=== PATIENT | female | born 1980 | race Caucasian/White ===

== ENCOUNTER 2020-08-09 09:29 | Outpatient (REF) | payer OTHER, SELFPAY ==
[2020-08-09 15:56] LABS: CT PCR NOT DETECTED (Not Detect.); NG PCR NOT DETECTED (Not Detect.)
[2020-08-10 09:28] LABS: BV Int Neg Control Negative (Negative); BV Int Pos Control Positive (Positive)
[2020-08-11 18:36] LABS: HPV mRNA E6/E7 rflx Not Detected (Not Detected)
== END 2020-08-09 09:30 | disposition home or self-care (01) ==
LOC: HO.LAB 09:29
PROVIDERS: Visit Provider Obstetrics & Gynecology
DX: Z01.419 Encounter for gynecological examination (general) (routine) without abnormal findings (principal); Z11.3 Encounter for screening for infections with a predominantly sexual mode of transmission
CPT/HCPCS: 87480; 87491; 87510; 87591; 87624; 87625; 87660; 88142

== ENCOUNTER 2020-10-02 11:06 | Outpatient (REF) | payer OTHER, SELFPAY ==
--- NOTE | 2020-10-02 11:12 | MM_ITS ---
EXAMINATION: MM SCREENING DIGITAL BREAST TOMOSYNTHESIS, BILATERAL CLINICAL INFORMATION: Screening. Asymptomatic. Prior history bilateral breast surgeries. The lifetime risk of breast cancer based on the Tyrer-Cuzick Model is 13%. COMPARISON: Outside mammography: 06/29/2014, 05/12/2013 ([facility]). TECHNIQUE: Digital breast tomosynthesis is performed in both the craniocaudal and mediolateral oblique views along with computer-aided detection (CAD). Synthesized 2D images are generated from the tomosynthesis. Additional exaggerated right CC view and left MLO view are provided. FINDINGS: There are scattered areas of fibroglandular density (ACR BI-RADS breast composition Category b). There are no significant masses, abnormal calcifications, or other abnormalities. There is an intramammary node posterior upper outer right breast and posterior outer left breast similar to outside study. There are a few small calcifications lower left breast on MLO view again seen. The skin contours are smooth. No significant changes. MM/MM tomosynthesis screening BI IMPRESSION: No significant changes from prior outside exams. ASSESSMENT: BI-RADS 2: Benign RECOMMENDATION: Routine annual mammography screening. This patient's information was entered into a reminder system with a target due date for their next mammogram.
== END 2020-10-02 11:07 | disposition home or self-care (01) ==
LOC: HO.MAMMO 11:06
PROVIDERS: Visit Provider Obstetrics & Gynecology
DX: Z12.31 Encounter for screening mammogram for malignant neoplasm of breast (principal)
CPT/HCPCS: 77063; 77067

== ENCOUNTER 2021-04-20 16:06 | Emergency (ER) | payer OTHER, SELFPAY ==
[2021-04-20 16:51] VITALS: BP 109/56; PULSE 94; RESP 16; TEMP 36.7; O2SAT 99; BMI 38.9
--- NOTE | 2021-04-20 16:51 | ED_ITS ---
HPI - Back Pain/Injury General Chief Complaint: Back Pain/Injury Stated Complaint: Back pain Time Seen by Provider: 04/20/21 16:51 Source: patient Mode of arrival: ambulatory Limitations: no limitations History of Present Illness HPI Narrative: 40 y/o female with history of low back pain presents to the ER with acute on chronic low back pain for the last 3 days after she was doing heavy lifting at work when she was at work. 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 She also cares for her mother who has had 5 strokes. She twisted wrong a few days ago and has worsening right sided lower back pain. It is worse with movement and twisting. No numbness, weakness, or tingling. No urinary symptoms. MD elicited complaint: back pain and back injury Pertinent past history: prior back pain Onset (ago): day(s) (3) Related Data Previous Rx's Medication Instructions Recorded metronidazole 500 mg tablet 500 mg PO BID 7 Days #14 tab 08/10/20 cyclobenzaprine 10 mg PO TID PRN #15 tab 04/20/21 ibuprofen 800 mg PO Q8H PRN #12 tab 04/20/21 lidocaine [Lidoderm] 1 patch TOPICAL DAILY #15 ea 04/20/21 Allergies Allergy/AdvReac Type Severity Reaction Status Date / Time ketorolac [From TORADOL] Allergy Severe HOTNESS Verified 08/09/20 09:33 tramadol Allergy Intermediate Rash Verified 08/09/20 09:33 Review of Systems Review of Systems: Constitutional: No Fever, No Chills Gastrointestinal: No Nausea, No Vomiting, No Diarrhea, No abdominal Pain Genitourinary: No Dysuria, No Urinary Frequency, No Hematuria Musculoskeletal: + joint pain, +Myalgias Skin: No Skin Lesions, No rash Neuro: No Weakness, No Numbness Psych: No Anxiety/Panic, No Depression Heme/Lymph: No Bruising, No Lymphadenopathy PMFSH Past Medical History Attestation statement: The following information was validated with the patient. Medical History Hx of bipolar disorder Surgical History History of cone biopsy of cervix Hx of tubal ligation Social History Social History (Updated 08/09/20 @ 09:35 by CHHAYA Littlejohn Alcohol intake: never Advance Directives: No Advance Directives Information Provided: No Sexual orientation: Straight/Heterosexual Gender identity: female Physical Exam Vital Signs: Vital Signs: Last Vital Signs Temp 98.1 F 04/20/21 16:51 Pulse 94 04/20/21 16:51 Resp 16 04/20/21 16:51 BP 109/56 L 04/20/21 16:51 Pulse Ox 99 04/20/21 16:51 Body Mass Index 38.9 Appearance: Alert. Oriented X3. No acute distress. HEENT: normal inspection CVS: Normal heart rate and rhythm. Pulses normal. Respiratory: No respiratory distress. Speaks in complete sentences Skin: Skin warm and dry. Normal skin color. Normal skin turgor. No rashes. Back: right mid-lower lumbar soft tissue tenderness and spasm. no spinal tenderness. limited flexion of the spine due to discomfort. Extremities: atraumatic, no LE edema. normal DTR's Neuro: Oriented X 3. No motor deficit. No sensory deficit. Ambulates with steady gait Course Course Course Narrative: 40 y/o female presenting with acute on chronic LBP after heavy lifting and twisting. Clinical presentation and exam are consistent with lumbar strain. No red flag symptoms of LBP. Will start NSAID, muscle relaxer, and lidoderm. Given a list for PCP's as she does not have one and this is an ongoing issues. Stable for d/c home. Patient agrees with plan. Discharge Plan Discharge Clinical Impression: Low back pain Qualifiers: Chronicity: chronic Back pain laterality: right Sciatica presence: without sciatica Qualified Code(s): M54.5 - Low back pain Patient Disposition: Home, Self-Care Instructions: Low Back Strain (ED), Lower Back Exercises (ED) Additional Instructions: No bending, lifting or twisting. Use ice several times per day for 20 minutes at a time for the next 48 hours and then change to heat. Take medications as prescribed to help with pain and discomfort. Follow up with your Primary Care Doctor this week. If your pain worsens, if you develop new numbness, tingling, weakness, loss of function or incontinence call 911 or come back to the ER right away for evaluation. Prescriptions: New cyclobenzaprine 10 mg tablet 10 mg PO TID PRN (Reason: muscle spasm) Qty: 15 RF: 0 ibuprofen 800 mg tablet 800 mg PO Q8H PRN (Reason: pain) Qty: 12 RF: 0 lidocaine [Lidoderm] 5 % adhesive patch,medicated 1 patch topical DAILY Qty: 15 RF: 0 No Action metronidazole [Flagyl] 500 mg tablet 500 mg PO BID 7 Days Qty: 14 RF: 0 Stand Alone Forms: Work/School Release
== END 2021-04-20 17:06 | disposition home or self-care (01) ==
LOC: HO.ED 17:01
PROVIDERS: Emergency Provider Emergency Medicine
DX: M54.5 Low back pain (principal)
CPT/HCPCS: 99283

== ENCOUNTER 2021-05-04 23:48 | Emergency (ER) | payer OTHER, SELFPAY ==
[2021-05-04 23:58] VITALS: BP 110/57; PULSE 93; RESP 16; TEMP 36.7; O2SAT 95; BMI 38.7
--- NOTE | 2021-05-05 00:07 | ED_ITS ---
HPI - Neck Pain/Injury General Chief Complaint: Neck Pain/Injury Stated Complaint: back pain/neck pain Time Seen by Provider: 05/05/21 00:06 Source: patient Mode of arrival: ambulatory Limitations: no limitations History of Present Illness HPI Narrative: Patient is a 40-year-old female with multiple complaints. First, she states she hurt her right side of her low back at work 3 days ago, she took ibuprofen 600 mg twice with no relief. 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 She denies any loss of control of her bladder or bowels. Second, she states she was sleeping when she was awoken by pain in her right neck, shoulder radiating down to her arm. She denies any trauma, new pillows or mattress or sleeping in an awkward position. She describes the pain as sharp, she has reduced range of motion due to the pain. She denies loss of strength or fevers. Related Data Previous Rx's Medication Instructions Recorded metronidazole 500 mg tablet 500 mg PO BID 7 Days #14 tab 08/10/20 (Flagyl) cyclobenzaprine 10 mg tablet 10 mg PO TID PRN #15 tab 04/20/21 ibuprofen 800 mg tablet 800 mg PO Q8H PRN #12 tab 04/20/21 lidocaine 5 % topical patch 1 patch TOPICAL DAILY #15 ea 04/20/21 (Lidoderm) oxycodone 5 mg tablet 5 mg PO Q6H PRN #20 tab 05/05/21 prednisone 20 mg tablet 40 mg PO DAILY 4 Days #8 tab 05/05/21 Allergies Allergy/AdvReac Type Severity Reaction Status Date / Time ketorolac [From TORADOL] Allergy Severe HOTNESS Verified 05/04/21 23:58 Review of Systems Review of Systems: Yes all other systems are reviewed and are negative [facility] Past Medical History Medical History Hx of bipolar disorder Surgical History History of cone biopsy of cervix Hx of tubal ligation Social History Social History Alcohol intake: never Advance Directives: No Advance Directives Information Provided: Yes Patient : No Sexual orientation: Straight/Heterosexual Gender identity: female Physical Exam Vital Signs: Vital Signs: Last Vital Signs Temp 98.0 F 05/04/21 23:58 Pulse 93 05/04/21 23:58 Resp 16 05/04/21 23:58 BP 110/57 L 05/04/21 23:58 Pulse Ox 95 05/04/21 23:58 Body Mass Index 38.7 Const: General: cooperative, healthy appearing and comfortable (clearly in pain) Nutritional Appearance: obese Limitations: no limitations HENMT: Head: Yes normal to inspection, Yes No palpable skull fracture present, Yes normocephalic and Yes atraumatic General nose exam: Normal external nose present Face and sinus: Yes normal facial exam Eyes: General: appearance normal, both eyes and all related structures Neck: Neck: Yes normal visual inspection, Yes full ROM, Yes trachea midline and Yes supple Resp: Effort & Inspection: normal respiratory effort and able to speak in complete sentences Back/Spine/Pelvis: Cervical Spine: cervical ROM normal, cervical muscular tenderness (right sided) and No Cervical spine tenderness Thoracic/Lumbar Spine: paraspinal muscle tenderness on the right in the mid lumbar and in the lower lumbar, No thoracic spinal tenderness and No lumbar spinal tenderness Extrem: General: Yes normal to inspection Right upper extremity: normal to inspection, normal capillary refill, elbow/forearm Details: normal to inspection, wrist Details: normal to inspection and Extremity exam: right hand Details: normal to inspection; No ROM limited (Secondary to pain, right shoulder, no rashes, ecchymosis, sign of infection) Course Course Course Narrative: Will give patient ibuprofen, oxycodone and prednisone, likely cervical nerve pain from sleeping in an awkward position. Discharge Plan Discharge Clinical Impression: Cervical radiculopathy, Low back pain Patient Disposition: Home, Self-Care Instructions: Acute Low Back Pain (ED), Cervical Radiculopathy (ED) Additional Instructions: As discussed, I am sending a prescription to continue the prednisone for 4 more days, I will also give your short course of oxycodone, you can take this in combination with Motrin as needed for pain. Your pain should improve each day, if it does not, please be sure to follow-up with your primary care doctor. You may need physical therapy. If you have an acute change with pain that cannot be controlled with medications, loss of strength in your arm, chest pain or shortness of breath, lose control of her bladder or bowels, please return to the emergency room or call 911. Prescriptions: New prednisone 20 mg tablet 40 mg PO DAILY 4 Days Qty: 8 RF: 0 oxycodone 5 mg tablet 5 mg PO Q6H PRN (Reason: pain) Qty: 20 RF: 0 No Action metronidazole [Flagyl] 500 mg tablet 500 mg PO BID 7 Days Qty: 14 RF: 0 cyclobenzaprine 10 mg tablet 10 mg PO TID PRN (Reason: muscle spasm) Qty: 15 RF: 0 ibuprofen 800 mg tablet 800 mg PO Q8H PRN (Reason: pain) Qty: 12 RF: 0 lidocaine [Lidoderm] 5 % adhesive patch,medicated 1 patch topical DAILY Qty: 15 RF: 0
[2021-05-05] MEDS: oxyCODONE HCl Immed Release 5 MG TABLET PO (00:31)
[2021-05-05] MEDS: predniSONE 20 MG TABLET 40 MG PO (00:31)
[2021-05-05] MEDS: Ibuprofen 600 MG TABLET PO (00:31)
== END 2021-05-05 00:54 | disposition home or self-care (01) ==
PROVIDERS: Emergency Provider Emergency Medicine Emergency Medical Services
DX: M54.12 Radiculopathy, cervical region (principal); M54.5 Low back pain; Z79.899 Other long term (current) drug therapy
CPT/HCPCS: 99283

== ENCOUNTER 2021-10-20 01:53 | Emergency (ER) | payer MEDICAID, SELFPAY ==
[2021-10-20 01:58] VITALS: BP 114/60; PULSE 100; RESP 18; TEMP 36.1; O2SAT 98; BMI 41.5
[2021-10-20 02:30] LABS: COVID-19 Test Negative (Negative)
--- NOTE | 2021-10-20 03:50 | ED.BACK ---
HPI - Back Pain/Injury General Chief Complaint: Back Pain/Injury Stated Complaint: severe back pain Time Seen by Provider: 10/20/21 03:20 Source: patient Mode of arrival: ambulatory History of Present Illness HPI Narrative: 41-year-old female with 1 week of base of neck and bilateral upper back musculoskeletal pain that is not been associated with fever, chills, cough, difficulty breathing or chest pain and patient denies any history of IVDA. Patient states she has tried Tylenol but it has not helped. Related Data Previous Rx's Medication Instructions Recorded metronidazole 500 mg tablet 500 mg PO BID 7 Days #14 tab 08/10/20 (Flagyl) cyclobenzaprine 10 mg tablet 10 mg PO TID PRN #15 tab 04/20/21 ibuprofen 800 mg tablet 800 mg PO Q8H PRN #12 tab 04/20/21 lidocaine 5 % topical patch 1 patch TOPICAL DAILY #15 ea 04/20/21 (Lidoderm) oxycodone 5 mg tablet 5 mg PO Q6H PRN #20 tab 05/05/21 prednisone 20 mg tablet 40 mg PO DAILY 4 Days #8 tab 05/05/21 Allergies Allergy/AdvReac Type Severity Reaction Status Date / Time ketorolac [From TORADOL] Allergy Severe HOTNESS Verified 10/20/21 01:58 Review of Systems Review of Systems: Pertinent positives and negatives as stated in HPI 10 point review of systems is otherwise negative. PMFSH Past Medical History Source: nursing notes reviewed Medical History Hx of bipolar disorder Surgical History History of cone biopsy of cervix Hx of tubal ligation Social History Social History Alcohol intake: never Advance Directives: No Patient : No Sexual orientation: Straight/Heterosexual Gender identity: Female Physical Exam Vital Signs: Vital Signs: Last Vital Signs Temp 97.0 F 10/20/21 01:58 Pulse 100 10/20/21 01:58 Resp 18 10/20/21 01:58 BP 114/60 10/20/21 01:58 Pulse Ox 98 10/20/21 01:58 BMI result Body Mass Index 41.5 VITAL SIGNS: Reviewed. GENERAL: Well developed, well nourished, in no acute distress. HEAD: Normocephalic/atraumatic EYES: PERRLA, EOMI OROPHARYNX: no oral lesions noted, posterior pharynx clear LUNGS: Normal breath sounds. No adventitious sounds or accessory muscle use. SpO2<98>, no chest wall tenderness CARDIOVASCULAR: Regular rate and rhythm without noted murmurs ABDOMEN: Soft, non-tender, non-distended with bowel sounds, no CVA tenderness NEUROLOGIC: Alert and oriented x 4. Strength and sensation to light touch were grossly intact x 4. Course Course Course Narrative: 41-year-old female with history and clinical presentation consistent with musculoskeletal pain and and no clinical evidence or history to suggest pneumonia, rib fracture, spinal infection and no evidence to suggest meningitis. Patient was provided with combination analgesics as well as lidocaine patch and muscle relaxant and on re-evaluation reports complete resolution of her discomfort and at this time is not interested in a chest x-ray and was otherwise discharged home in stable condition. All investigations reviewed and otherwise without acute findings. MDM - Back Pain/Injury Lab Data Labs: Lab Results 10/20/21 Range/Units 02:10 COVID-19 ([facility]) Negative (Negative) COVID-19 Clin Com See Note Discharge Plan Discharge Clinical Impression: Musculoskeletal back pain, Muscle spasm Patient Disposition: Home, Self-Care Instructions: Muscle Spasm (ED), Back Pain (ED) Additional Instructions: 1. Tylenol 1000 mg, orally, every 6 hours as needed for pain control. Do not exceed 4000 mg within 24 hours. 2. Lidocaine patch, this is available [id number] and can be apply to area of maximal tenderness as directed on the outside packaging. 3. Follow-up with your primary care provider in the morning for re-evaluation further outpatient management. Return to the ER for worsening symptoms. Prescriptions: No Action metronidazole [Flagyl] 500 mg tablet 500 mg PO BID 7 Days Qty: 14 RF: 0 cyclobenzaprine 10 mg tablet 10 mg PO TID PRN (Reason: muscle spasm) Qty: 15 RF: 0 ibuprofen 800 mg tablet 800 mg PO Q8H PRN (Reason: pain) Qty: 12 RF: 0 lidocaine [Lidoderm] 5 % adhesive patch,medicated 1 patch topical DAILY Qty: 15 RF: 0 prednisone 20 mg tablet 40 mg PO DAILY 4 Days Qty: 8 RF: 0 oxycodone 5 mg tablet 5 mg PO Q6H PRN (Reason: pain) Qty: 20 RF: 0
[2021-10-20] MEDS: Acetaminophen 325 MG TABLET 975 MG PO (03:56)
[2021-10-20] MEDS: Cyclobenzaprine HCl 5 MG TABLET PO (03:57)
[2021-10-20] MEDS: Lidocaine 4 % Patch ADH..PATCH 1 PATCH TRANSDERMA (03:57)
== END 2021-10-20 04:21 | disposition home or self-care (01) ==
PROVIDERS: Emergency Provider Student in an Organized Health Care Education/Training Program
DX: M62.830 Muscle spasm of back (principal); M54.6 Pain in thoracic spine; M54.2 Cervicalgia; Z20.822 Contact with and (suspected) exposure to COVID-19
CPT/HCPCS: 87635; 99283

== ENCOUNTER → 2021-11-08 15:08 | Outpatient (BNVA) | payer MEDICAID, SELFPAY | PROVIDERS: PCP Nurse Practitioner Primary Care; Referring Provider Nurse Practitioner Primary Care; Visit Provider Psychiatry & Neurology Neurology | DX: G47.19 Other hypersomnia (principal); R06.83 Snoring; R25.8 Other abnormal involuntary movements | CPT/HCPCS: 99202 ==

== ENCOUNTER 2021-12-19 14:49 | Outpatient (REF) | payer MEDICAID, SELFPAY ==
--- NOTE | ~2021-12-19 | MM_ITS ---
EXAMINATION: MM SCREENING DIGITAL BREAST TOMOSYNTHESIS, BILATERAL CLINICAL INFORMATION: Screening. Asymptomatic. Status post bilateral benign breast biopsy. The lifetime risk of breast cancer based on the Tyrer-Cuzick Model is 11%. COMPARISON: Mammography: October 02, 2020 and studies dating back to May 12, 2013 TECHNIQUE: Digital breast tomosynthesis is performed in both the craniocaudal and mediolateral oblique views along with computer-aided detection (CAD). Synthesized 2D images are generated from the tomosynthesis. FINDINGS: There are scattered areas of fibroglandular density (ACR BI-RADS breast composition Category b). There are no new significant masses, abnormal calcifications, or other abnormalities. There are stable postsurgical change is present. MM/MM tomosynthesis screening BI IMPRESSION: There are no significant changes from prior study. ASSESSMENT: BI-RADS 2: Benign RECOMMENDATION: Routine annual mammography screening. This patient's information was entered into a reminder system with a target due date for their next mammogram.
== END 2021-12-19 14:50 | disposition home or self-care (01) ==
LOC: HO.MAMMO 14:49
PROVIDERS: PCP Nurse Practitioner Primary Care; Visit Provider Nurse Practitioner Primary Care
DX: Z12.31 Encounter for screening mammogram for malignant neoplasm of breast (principal)
CPT/HCPCS: 77063; 77067

== ENCOUNTER → 2021-12-29 22:14 | Outpatient (REF) | payer MEDICAID, SELFPAY | LOC: HO.SL 22:14 | PROVIDERS: Visit Provider Psychiatry & Neurology Neurology | DX: R25.8 Other abnormal involuntary movements (principal) | CPT/HCPCS: 95810 ==

== ENCOUNTER 2022-01-24 13:01 | Outpatient (REF) | payer MEDICAID, SELFPAY ==
[2022-01-25 05:27] LABS: CT PCR NOT DETECTED (Not Detect.); NG PCR NOT DETECTED (Not Detect.)
[2022-01-25 10:52] LABS: BV Int Neg Control Negative (Negative); BV Int Pos Control Positive (Positive)
[2022-01-27 09:16] LABS: HPV mRNA E6/E7 rflx Not Detected (Not Detected)
== END 2022-01-24 13:02 | disposition home or self-care (01) ==
LOC: HO.LAB 13:01
PROVIDERS: PCP Nurse Practitioner Primary Care; Visit Provider Advanced Practice Midwife
DX: Z01.411 Encounter for gynecological examination (general) (routine) with abnormal findings (principal); Z11.51 Encounter for screening for human papillomavirus (HPV); N92.6 Irregular menstruation, unspecified; R63.5 Abnormal weight gain; Z20.2 Contact with and (suspected) exposure to infections with a predominantly sexual mode of transmission
CPT/HCPCS: 87480; 87491; 87510; 87591; 87624; 87660; 88142

== ENCOUNTER → 2022-02-07 14:29 | Outpatient (BNVA) | payer MEDICAID, SELFPAY | PROVIDERS: PCP Nurse Practitioner Primary Care; Visit Provider Psychiatry & Neurology Neurology | DX: G47.19 Other hypersomnia (principal); R06.83 Snoring | CPT/HCPCS: 99212 ==

== ENCOUNTER 2022-04-06 11:10 | Outpatient (REF) | payer MEDICAID, SELFPAY ==
[2022-04-06 12:53] LABS: Thyroid Stimulating Hormone 1.12 uIU/mL (0.32-4.0)
== END 2022-04-06 11:11 | disposition home or self-care (01) ==
LOC: HO.LAB 11:10
PROVIDERS: PCP Nurse Practitioner Primary Care; Visit Provider Advanced Practice Midwife
DX: N92.6 Irregular menstruation, unspecified (principal); R63.5 Abnormal weight gain
CPT/HCPCS: 36415; 84443

== ENCOUNTER 2022-08-31 10:32 | Outpatient (REF) | payer MEDICAID, SELFPAY ==
[2022-09-05 07:39] LABS: HPV mRNA E6/E7 rflx Not Detected (Not Detected)
== END 2022-08-31 10:33 | disposition home or self-care (01) ==
LOC: HO.LNP 10:32
PROVIDERS: Visit Provider Advanced Practice Midwife
DX: R87.615 Unsatisfactory cytologic smear of cervix (principal)
CPT/HCPCS: 87624; 88142; 99212

== ENCOUNTER 2023-06-21 13:05 | Outpatient (AMB) | payer MEDICAID, SELFPAY ==
[2023-06-21 13:20] VITALS: BP 102/60; BMI 39.1
--- NOTE | 2023-06-21 13:20 | A.OFFVIS_ITS ---
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 Scribed for ANGELIKA Norton by Keely Feliz senior medical billing specialist, on 06/21/2023 at 1:36 pm EST. Client Relations Specialist: Client Relations Specialist Present (Mary) Allergies ketorolac [From TORADOL] Allergy (Severe, Verified 06/21/23 13:21) HOTNESS Is last menstrual period known: Yes Last menstrual period: 05/22/23 HPI HPI Comments History of Present Illness Details She is a premenopausal woman presenting for annual exam. Doing well with no gyn physician concerns. She admits to eating healthy and tries to stay active with exercise. Currently not sexually active. Denies vaginal itching and irritation. Reports occasional hot flashes. STD screening offered; she accepts. STD blood work offered; she declines. Denies family hx of colon and ovarian cancer. Last pap smear 08/31/22. Last mammogram 12/19/21. 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 Sexual orientation: Straight/Heterosexual Gender identity: Female Female Reproductive History Menstrual Age of Menarche: 11 Duration of menses: 3-5 days Date of last menstrual period: 05/22/23 control method: permanent sterilization Permanent Sterilization: BTL Total pregnancies: 4 Full term: 3 Number of Living Children: 3 Date of last pap smear: 12/01/22 (neg pap and hpv) History of abnormal pap smear: Yes (see intake note) Date of Mammogram: 12/19/21 ([facility] 2) Physical Exam Vital Signs: Last Vital Signs BP 102/60 06/21/23 13:20 BMI result Body Mass Index 39.1 Const General: cooperative, healthy appearing, no acute distress, well developed and alert Orientation/consciousness: patient oriented x3 HEENT Head: Yes normal to inspection Eyes General: appearance normal, both eyes and all related structures Neck Neck: Yes normal visual inspection Thyroid: Thyroid normal Chest Chest palpation & inspection: normal inspection of the chest Breast/axilla inspection: normal inspection of the breasts (no puckering, dimpling, peau de orange, retraction, discharge, masses) Breast/axilla palpation: normal palpation of the breasts Resp Effort & Inspection: normal respiratory effort GI Inspection: Yes normal to inspection Palpation (GI): Soft to palpation (to palpation) Rectal Exam - Female: deferred General: Yes bladder normal to inspection External Female Exam: normal external appearance and normal appearance of the urethra Speculum Exam - Vagina: normal appearance of the vagina, normal palpation and normal vaginal discharge Speculum Exam - Cervix: normal appearance of the cervix and normal palpation Bimanual exam- vagina & uterus: normal palpation and normal palpation Bimanual Exam- Adnexa, other: normal adnexae and no masses Skin General skin exam: no rashes or lesions noted Neuro General: patient oriented x3 Cognition (Neuro): normal cognition Extrem General: Yes normal to inspection Psych Attitude: cooperative Thought process: Normal thought process present Assessment & Plan Assessment & Plan (1) Encounter for well woman exam: Code(s): Z01.419 - Encounter for gynecological examination (general) (routine) without abnormal findings Plan: Discussed: Current recommendations for pap smears per ASCCP guidelines. Breast awareness and periodic self breast exams. Maintaining a healthy lifestyle including a well balanced diet and routine exercise. Monitor periods, report any unscheduled bleeding, bleeding episodes less than 21 days apart or heavy prolonged menstrual bleeding. All of her questions and concerns were addressed to the best of my ability. RTO in one year for AG. (2) Potential exposure to STD: Code(s): Z20.2 - Contact with and (suspected) exposure to infections with a predominantly sexual mode of transmission Plan: BV testing and GC/CT panel done today. Await results and treat accordingly. Orders: Orders CT NG by PCR Today Z20.2 - Contact with and (suspected) exposure to infections with a predominantly sexual mode of transmission MM tomosynthesis screening BI Today Z12.31 - Encounter for screening mammogram for malignant neoplasm of breast Coding Level of Care Code Est Pt Prev Care 40-64y(24441) Diagnoses Encounter for well woman exam Z01.419 Potential exposure to STD Z20.2
== END 2023-06-21 13:55 | disposition home or self-care (01) ==
PROVIDERS: Visit Provider Advanced Practice Midwife
DX: Z01.419 Encounter for gynecological examination (general) (routine) without abnormal findings (principal); Z20.2 Contact with and (suspected) exposure to infections with a predominantly sexual mode of transmission
CPT/HCPCS: 99396

== ENCOUNTER 2023-06-21 13:05 | Outpatient (REF) | payer MEDICAID, SELFPAY ==
[2023-06-21 17:50] LABS: CT PCR NOT DETECTED (Not Detect.); NG PCR NOT DETECTED (Not Detect.)
== END 2023-06-21 13:06 | disposition home or self-care (01) ==
LOC: HO.LNP 13:05
PROVIDERS: Visit Provider Advanced Practice Midwife
DX: Z01.419 Encounter for gynecological examination (general) (routine) without abnormal findings (principal); Z20.2 Contact with and (suspected) exposure to infections with a predominantly sexual mode of transmission
CPT/HCPCS: 0353U; 99396

== ENCOUNTER 2023-08-28 23:19 | Emergency (ER) | payer MEDICAID, SELFPAY ==
--- NOTE | ~2023-08-28 | CT_ITS ---
EXAMINATION: CT ABDOMEN AND PELVIS WITHOUT CONTRAST CLINICAL INFORMATION: Right-sided pain with history of kidney stone COMPARISON: 08/18/2017 TECHNIQUE: Multidetector volumetric imaging was performed from the superior aspect of the liver through the pubic symphysis. Sagittal and coronal reformatted images were obtained on the technologist's workstation. This CT examination was performed using dose optimization techniques as appropriate, variously including the following: *Automated exposure control *Adjustment of mA and/or kV according to patient size (this includes techniques or standardized protocols for targeted exams where dose is matched to indication/reason for exam; i.e. extremities or head) *Use of iterative reconstruction technique DLP: 783 mGy-cm FINDINGS: LUNG BASES: The visualized lung bases are unremarkable. LIVER, GALLBLADDER, AND BILIARY TREE: The liver is normal in size, shape, and attenuation. No focal hepatic lesion or biliary ductal dilatation is identified on this noncontrast exam. Patient is status post cholecystectomy. PANCREAS: Unremarkable. SPLEEN: Unremarkable. ADRENAL GLANDS: Unremarkable. KIDNEYS AND URETERS: No hydronephrosis or obstructing calculus bilaterally. BLADDER: Mildly distended and grossly unremarkable. GASTROINTESTINAL TRACT: No evidence of bowel obstruction or significant wall thickening. The appendix is unremarkable. No free fluid or free air is seen. ABDOMINAL WALL: No significant hernia is appreciated. LYMPH NODES: Normal. VASCULAR: Unremarkable. PELVIC VISCERA: Unremarkable. OSSEOUS STRUCTURES: Degenerative disc disease at L5-S1. CT/CT abdomen pelvis wo IV con IMPRESSION: No acute findings identified in the abdomen/pelvis. No hydronephrosis or obstructing calculus.
[2023-08-28 23:34] VITALS: BP 111/37; PULSE 90; RESP 18; TEMP 36.6; O2SAT 98; BMI 39.5
[2023-08-29 00:24] LABS: Alanine Aminotransferase 11 U/L (0-31); Albumin Level 3.8 g/dL (3.5-5.0); Alkaline Phosphatase 61 U/L (39-117); Anion Gap 12 (12-20); Aspartate Amino Transferase 17 U/L (5-31); Bilirubin Total 0.2 mg/dL (0.0-1.0); Blood Urea Nitrogen 17 mg/dL (9-16); Calcium 8.9 mg/dL (8.4-10.2); Carbon Dioxide 23 mmol/L (22-29); Chloride 107 mmol/L (96-108); Estimated Glomerular Filt Rate > 60; Glucose Random 115 mg/dL (60-115); Potassium 4.2 mmol/L (3.3-5.1); Sodium 138 mmol/L (135-145); Total Protein 7.2 g/dL (6.5-8.0)
[2023-08-29 00:50] VITALS: BP 103/58; PULSE 80; RESP 16; TEMP 36.6
--- OUTSIDE RECORDS SUMMARY | 2023-08-29 00:56 | XMS_ITS | Continuity of Care Document ---
Author Name Unknown Organization [facility] Address [address] [place] [address]- Care Team Providers Care Siding Installer Name Role Phone Aranza Mack MD Primary Care Physician Encounter [facility] Date(s): 07/18/22 - 07/18/[address] [address]- Discharge Disposition: A-D/C Home Attending Physician: Kian Diaz MD Admitting Physician: Kian Diaz MD Referring Physician: Not on Staff, Referring MD Allergies, Adverse Reactions, Alerts Substance Reaction Severity Status Toradol Active Medications No Known Medications Problem List Condition Confirmation Course Effective Dates Status Health St atus Informant Obese class II Confirmed Active Results Radiology Reports * Exam Date Time Procedure Performing Provider Status 07/18/22 4:06 PM Finger Thumb Right Hand Mamadou Pastrana ; Joaquina (Verified) Notes: (Finger Thumb Right Hand) Reason For Exam: Pain RESULT: Finger Thumb Right Hand Finger Thumb Right Hand, 3 views Hx of Present Illness: Pt states that she woke up this morning with severe pain on her right thumb.; Reason: Pain; Clinical Question(s): Fracture COMPARISON: None. FINDINGS: No acute fracture or dislocation. Calcification adjacent to the first metacarpal base and trapeziumlikely related to chronic ligamentous injury. IMPRESSION: No radiographic explanation for patient's symptoms identified. WSN: [id number] Ordering Physician: Noah Decker Dictated By: Jacob Mcgarry MD Dictated Date/Time: 07/18/22 5:01 pm Reviewed By: Jacob Mcgarry MD Signed By: Jacob Mcgarry MD Signed Date/Time: 07/18/22 5:01 pm Transcribed By: JEFF Transcribed Date/Time: 07/18/22 5:01 pm Vital Signs Most recent to oldest [Reference Range]: 1 2 Height 155 cm (07/18/22 3:42 PM) 155 cm (07/18/22 3:32 PM) Weight 94.4 kg (07/18/22 3:42 PM) 94.4 kg (07/18/22 3:32 PM) Oxygen Saturation [94-100 %] 100 % (07/18/22 3:32 PM) Pulse Rate [55-90 bpm] 97 bpm *H* (07/18/22 3:32 PM) Body Mass Index [18.5-24.99 kg/m2] 39.29 kg/m2 *>HHI* (07/18/22 3:32 PM) Blood Pressure [90-138/55-84 mm Hg] 141/ 95mm Hg *H* (07/18/22 3:32 PM) Respiratory Rate [16-30 br/min] 16 br/mi n (07/18/22 3:32 PM) Temperature [96.8-100.4 DegF] 97.4 DegF (07/18/22 3:32 PM) Mode of Delivery (Oxygen) Room air (07/18/22 3:32 PM) Temperature Route Temporal (07/18/22 3:32 PM) Dry Weight 94.4 kg (07/18/22 3:42 PM) 94.4 kg (07/18/22 3:32 PM) Weight Obtained Via Standing scale (07/18/22 3:32 PM) Dry Weight Obtained Via Standing scale (07/18/22 3:32 PM) Note * [facility]SP[facility]erscribe , CIS S: TRANSCRIBE Jacob Mcgarry MD: VERIFY Event Display: Result: Authored Date: Finger Thumb Right Hand, 3 views Hx of Present Illness: Pt states that she woke up this morning with severe pain on her right thumb.; Reason: Pain; Clinical Question(s): Fracture COMPARISON: None. FINDINGS: No acute fracture or dislocation. Calcification adjacent to the first metacarpal base and trapeziumlikely related to chronic ligamentous injury. IMPRESSION: No radiographic explanation for patient's symptoms identified. WSN: [id number] Ordering Physician: Noah Decker Dictated By: Jacob Mcgarry MD Dictated Date/Time: 07/18/22 5:01 pm Reviewed By: Jacob Mcgarry MD Signed By: Jacob Mcgarry MD Signed Date/Time: 07/18/22 5:01 pm Transcribed By: JEFF Transcribed Date/Time: 07/18/22 5:01 pm Patient Care team information Personnel Name: Aranza Mack MD Address: Address: [address] [place] [id number]
--- NOTE | 2023-08-29 01:02 | ED.ABDPAIN ---
HPI - Abdominal Pain General Chief Complaint: Abdominal Pain Stated Complaint: side/abd pain? Time Seen by Provider: 08/29/23 00:59 Source: patient Mode of arrival: ambulatory Limitations: no limitations History of Present Illness HPI narrative: Patient history of kidney stones last stone was 4 years comes here for sudden onset of pain in the right lower abdomen since yes feels same pain as when she had kidney stone pain radiates to the right flank. Denies hematuria or dysuria feels frequency also has nausea. No fever no chills no diarrhea feels hungry no history of ovarian cyst Related Data Home Medications Medication Instructions Recorded Confirmed naproxen 500 mg tablet 500 mg PO PRN pain 06/21/23 Previous Rx's Medication Instructions Recorded dicyclomine 20 mg tablet 20 mg PO TID PRN abdominal pain 08/29/23 #20 tabs Allergies Allergy/AdvReac Type Severity Reaction Status Date / Time ketorolac [From TORADOL] Allergy Severe HOTNESS Verified 08/28/23 23:38 Review of Systems Review of Systems Yes all other systems are reviewed and are negative PMFSH Past Medical History Medical History Hx of abnormal cervical Pap smear Hx of bipolar disorder Surgical History 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 H/O LEEP History of cone biopsy of cervix Hx of tubal ligation Family History Family History Maternal Aunt History of breast cancer Social History Social History Alcohol intake: never Patient Tobacco Use Status: Never used Tobacco Smoked in Last 30 Days: No Use of substances other than those prescribed or required for medical reasons: No Advance Directives: No Advance Directives Information Provided: No Patient : No 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 Oriented X3. No acute distress. Eyes: PERRLA, No Nystagmus ENT: Pharynx normal. Oral Mucosa moist Neck: Normal inspection. Neck supple. CVS: Normal heart rate and rhythm. Pulses normal. Respiratory: No respiratory distress. Equal air entry bilateral, no wheezing/rales/rhonchi Abdomen: Soft tenderness right lower quadrant with guarding no rebound tenderness Bowel sounds are present, no mass palpable, no CVA tenderness Skin: Skin warm and dry. Normal skin color. Normal skin turgor. Extremities: No lower extremity edema. No calf tenderness Neuro: Oriented X 3. Medical Decision Making Medical Decision Making [facility] Narrative: Patient workup negative for any significant pathology WBC count normal urine negative likely patient has bowel spasm discharge patient home Bentyl Differential Diagnosis Differential Diagnoses: The differential diagnosis associated with the presentation includes Renal colic/appendicitis/ovarian cyst /UTI Lab Data [facility] Lab Attestation statement: I reviewed the patient's lab results. 08/29/23 01:20 08/29/23 00:01 Labs: Lab Results 08/29/23 08/29/23 08/29/23 Range/Units 00:01 00:18 01:20 WBC 9.6 (4.8-10.8) X10*3/uL RBC 4.23 (4.20-5.50) X10*6/uL Hgb 12.7 (12.0-16.0) g/dl Hct 37.1 (37.0-47.0) % MCV 87.7 (80.0-98.0) fL MCH 30.0 (27.0-33.0) pg MCHC 34.2 (31.0-35.0) g/dl RDW 13.0 (11.0-16.0) % Plt Count 296 (160-400) X10*3/uL MPV 10.9 (9.4-12.3) fL Immature Gran % (Auto) 0.3 (0.0-0.4) % Neut % (Auto) 63.3 (45-73) % Lymph % (Auto) 25.2 (20-40) % Gates % (Auto) 8.0 (2-11) % Eos % (Auto) 2.8 (0-4) % Baso % (Auto) 0.4 (0-2) % Lymph # (Auto) 2.4 (1.2-4.9) X10*3/uL [place] # (Auto) 0.8 (0.1-1.2) X10*3/uL Eos # (Auto) 0.3 (0.0-0.4) X10*3/uL Baso # (Auto) 0.0 (0.0-0.2) X10*3/uL Abs Immat Gran (auto) 0.03 (0.00-0.03) X10*3/uL Absolute Neuts (auto) 6.1 (2.0-8.3) x10*3/uL Absolute Nucleated RBC 0.000 (0.0-0.012) X10*3/uL Nucleated RBC % (auto) 0.0 (0.0-0.2) /100WBC Sodium 138 (135-145) mmol/L Potassium 4.2 (3.3-5.1) mmol/L Chloride 107 (96-108) mmol/L Carbon Dioxide 23 (22-29) mmol/L Anion Gap 12 (12-20) BUN 17 H (9-16) mg/dL Creatinine 0.74 (0.5-1.4) mg/dL Estim Creat Clear Calc 103.0 Estimated GFR > 60 Random Glucose 115 (60-115) mg/dL Calcium 8.9 (8.4-10.2) mg/dL Total Bilirubin 0.2 (0.0-1.0) mg/dL AST 17 (5-31) U/L ALT 11 (0-31) U/L Alkaline Phosphatase 61 (39-117) U/L Total Protein 7.2 (6.5-8.0) g/dL Albumin 3.8 (3.5-5.0) g/dL Urine Color Yellow Urine Appearance Clear Urine pH 5.5 (5.0-9.0) Ur Specific [place] 1.020 (1.005-1.025) Urine Protein Negative (Neg-Trace) mg/dL Urine Glucose (UA) Negative (Negative) mg/dL Urine Ketones Negative (Negative) mg/dL Urine Blood Negative (Negative) Urine Nitrite Negative (Negative) Ur Leukocyte Esterase Negative (Negative) Urine Test NEGATIVE (NEGATIVE) Independent Interpretation I performed an independent interpretation of an: CT Scan Radiology Impression Discussion of test interpretation with radiology: I have reviewed the radiologist's reading. Radiologist Impression: CT/CT abdomen pelvis wo IV con IMPRESSION: No acute findings identified in the abdomen/pelvis. No hydronephrosis or obstructing calculus. Medications Administered Discontinued Medications Generic Name Dose Route Start Last Admin Trade Name Freq PRN Reason Stop Dose Admin Sodium Chloride 1,000 mls @ 999 mls/hr 08/29/23 01:25 08/29/23 01:38 Ns IV 08/29/23 02:25 999 mls/hr .Q1H1M ONE Administration Morphine Sulfate 4 mg 08/29/23 01:25 08/29/23 01:39 Morphine Sulfate 4 Mg/Ml Cartridge IVPUSH 08/29/23 01:26 4 mg ONCE ONE Administration Protocol Ondansetron HCl 4 mg 08/29/23 01:25 08/29/23 01:38 Ondansetron Hcl 4 Mg/2 Ml Vial IVPUSH 08/29/23 01:26 4 mg ONCE ONE Administration Discharge Plan Discharge Clinical Impression: Abdominal pain Patient Disposition: Home, Self-Care Instructions: Abdominal Pain (ED) Additional Instructions: Abdominal pain is not clear Your CT scan and labs are normal Take Bentyl for abdominal pain as prescribed Follow with PCP Prescriptions: New dicyclomine 20 mg tablet 20 mg PO TID PRN (Reason: abdominal pain) Qty: 20 0RF No Action naproxen 500 mg tablet 500 mg PO PRN (Reason: pain)
[2023-08-29 01:12] LABS: Appearance Urine Clear; Color Urine Yellow; Glucose Urine UA Negative (Negative); Leukocyte Esterase Urine Negative (Negative); Nitrite Urine Negative (Negative); PH 5.5 (5.0-9.0); Urine Blood Negative (Negative); Urine Ketones Negative (Negative); Urine Protein Negative (Neg-Trace)
[2023-08-29 01:14] LABS: UPreg QC Valid YES; Urine Pregnancy NEGATIVE (NEGATIVE)
[2023-08-29 01:26] LABS: Monocytes Absolute Auto 0.8 X10*3/uL (0.1-1.2); PLT CLUMP 1; SCAN SMEAR FLAG 1
[2023-08-29 01:28] LABS: Basophils Percent Auto 0.4 % (0-2); Eosinophils Absolute Auto 0.3 X10*3/uL (0.0-0.4); Eosinophils Percent Auto 2.8 % (0-4); Hematocrit 37.1 % (37.0-47.0); Hemoglobin 12.7 g/dl (12.0-16.0); Imm Gran Abs Auto 0.03 X10*3/uL (0.00-0.03); Imm Gran Pct Auto 0.3 % (0.0-0.4); Lymphocytes Absolute Auto 2.4 X10*3/uL (1.2-4.9); Lymphocytes Percent Auto 25.2 % (20-40); Mean Corpuscular HGB Conc 34.2 g/dl (31.0-35.0); Mean Corpuscular Volume 87.7 fL (80.0-98.0); Mean Platelet Volume 10.9 fL (9.4-12.3); Neutrophils Absolute Auto 6.1 x10*3/uL (2.0-8.3); Neutrophils Percent Auto 63.3 % (45-73); Red Blood Count 4.23 X10*6/uL (4.20-5.50)
[2023-08-29 01:30] LABS: MANUAL DIFF FLAG NO; White Blood Count 9.6 X10*3/uL (4.8-10.8)
[2023-08-29] MEDS: ondansetron HCL 4 MG/2 ML VIAL IVPUSH (01:38)
[2023-08-29] MEDS: 0.9 % Sodium Chloride 1,000 ML 999 ML IV (01:38)
[2023-08-29] MEDS: Morphine Sulfate 4 MG/ML CARTRIDGE IVPUSH (01:39)
[2023-08-29 01:46] LABS: Platelet Count 296 X10*3/uL (160-400)
[2023-08-29 02:00] VITALS: BP 112/50; PULSE 75; RESP 16; TEMP 36.6; O2SAT 97
--- NOTE | 2023-08-29 02:59 | PC.NURSE ---
Pt c/o 07/10 R-sided abdominal pain with associated nausea. Pt reports similar in nature to previous kidney stones. Failed attempts by this RN to place IV, discussed with who placed #22 in L-wrist.NS patient given morphine and zofran reporting some improvement in pain 01/08. CT results pending.
== END 2023-08-29 03:21 | disposition home or self-care (01) ==
PROVIDERS: Emergency Provider Internal Medicine
DX: R10.9 Unspecified abdominal pain (principal); R11.2 Nausea with vomiting, unspecified; R35.0 Frequency of micturition; Z79.899 Other long term (current) drug therapy
CPT/HCPCS: 36415; 74176; 80053; 81003; 81025; 85025; 96361; 96374; 96375; 99284; J2270; J2405

== ENCOUNTER 2024-01-27 14:40 | Emergency (ER) | payer MEDICAID, SELFPAY ==
[2024-01-27 15:06] VITALS: BP 104/46; PULSE 83; RESP 16; TEMP 36.4; O2SAT 100; BMI 40.4
--- NOTE | 2024-01-27 15:12 | ED.GENADULT ---
HPI - General Adult General Chief complaint: Back Pain/Injury Stated complaint: Back pain Time Seen by Provider: 01/27/24 16:21 Source: patient Mode of arrival: ambulatory Limitations: no limitations History of Present Illness HPI narrative: patient is a 43-year-old female who presents emergency department for evaluation of acute on chronic lower back pain. She reports it is to the bilateral back, left feels worse than right. 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 she is tried naproxen as well as Tylenol without any improvement. She reports her primary care doctor has had her trial physical therapy in the past but this only worsens her pain. Denies recent precipitating injury, fevers, chills, burning with micturition, urinary frequency/urgency/hesitancy, bladder or bowel dysfunction, numbness or tingling of the perineum or bilateral legs. Denies any recent surgical procedures, any known immune compromising conditions, personal history of cancer, or IV drug usage. Related Data Home Medications ?Medication ?Instructions ?Recorded ?Confirmed naproxen 500 mg tablet 500 mg PO PRN pain 06/21/23 Previous Rx's ?Medication ?Instructions ?Recorded dicyclomine 20 mg tablet 20 mg PO TID PRN abdominal pain 08/29/23 #20 tabs cyclobenzaprine 10 mg tablet 10 mg PO TID PRN muscle spasm #20 01/27/24 tabs lidocaine 5 % topical patch 2 patch topical DAILY #30 ea 01/27/24 (Lidoderm) Allergies Allergy/AdvReac Type Severity Reaction Status Date / Time ketorolac [From TORADOL] Allergy Severe HOTNESS Verified 01/27/24 15:07 Review of Systems Review of Systems: Yes all other systems are reviewed and are negative [facility] Past Medical History Attestation statement: The following information was validated with the patient. 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 No acute distress.?Normal affect. Eyes: Pupils equal, round and reactive to light.? ENT: Pharynx normal.?? Neck: Normal inspection.? Neck supple.?? CVS: Heart sounds normal. Normal heart rate and rhythm.? Pulses normal; bilateral radial pulses 2+, bilateral posterior tibial/dorsalis pedis pulses 2+.? Respiratory: No respiratory distress.? Lung sounds clear to auscultation bilaterally?? Abdomen: Soft and non-tender. Normoactive bowel sounds. No pulsatile mass.?? Skin: Skin warm and dry.? Normal skin color.? Normal skin turgor.?? Extremities: No lower extremity edema.? No calf ttp? Back: + Moderate paraspinal muscular tenderness from lumbar region to coccyx. No CVA tenderness. No midline spinal tenderness, step-off's, or deformity. Full ROM intact in bilateral lower extremities. Straight leg test positive on right; Straight leg test positive on left. No rashes, lesions, areas of induration or fluctuance, or signs of infection noted., Neuro: Moves all extremities spontaneously. 5/5 strength in hip extension/flexion, abduction, adduction. Sensation to light touch intact bilaterally. Patellar and Achilles reflex 2+ bilaterally. No ataxia, gait normal and steady.. No focal neuro deficits. Course Course Course Narrative: RME: 43 yold female presents to the ED for chornic back pain exacerbation without any recent trauma. took tylenol at home Medical Decision Making Medical Decision Making [facility]DM Narrative: Patient is a 43-year-old female presenting to emergency department for evaluation of acute on chronic lower back pain. overall she is well-appearing, nontoxic, afebrile. Based on history and physical examination I suspect this pain to be consistent with her chronic lumbago likely combination of muscular strain/ radiculopathy although cannot completely exclude herniated disc. On neurological exam there are no deficits. Not consistent with spinal fracture, spinal infection, epidural abscess, AAA, epidural abscess, or dissection. No high risk past medical history including incontinence, fever, immunosuppression, recent surgery or lumbar puncture, coagulopathy, significant trauma, recent unintentional weight loss, pulsatile mass, history of cancer, history of TB, history of IV drug use that would warrant MRI or CT. Not consistent with ectopic , pyelonephritis, urinary tract infection, renal calculi, pelvic infection, appendicitis, diverticulitis. On exam no concern for cauda equina syndrome. No imaging is currently indicated at this time. Plan for discharge home with prescription for cyclobenzaprine, Lidoderm patch, and follow-up with primary care provider, and patient agreed with plan. Differential Diagnosis Differential Diagnoses: The differential diagnosis associated with the presentation includes ( see narrative above) Admission/Observation Consideration of admission/observation: Escalation of care including admission/observation considered ( see narrative above) External Record Review External record reviewed: Outpatient record Tests considered The following testing was considered but not selected: see narrative above Prescription Management I considered prescription management with: Pain Medication Discharge Plan Discharge Clinical Impression: Strain of lumbar region Patient Disposition: Home, Self-Care Instructions: Low Back Strain (ED), Lower Back Exercises (ED) Additional Instructions: You can take ibuprofen 200 mg, 3 tablets (600mg) every 6-8 hours as needed for pain, in addition to Tylenol 500 mg, 2 tablets (1,000mg) every 4-6 hours as needed for pain, but not to exceed 3 doses daily (3,000mg).? a prescription for a muscle relaxer was sent to your pharmacy; cyclobenzaprine / Flexeril. This medication may make you drowsy. You should not drive, drink alcohol, or work while taking this medication. In addition a prescription for Lidoderm patch was sent to your pharmacy, you may use this as needed for area of most pain, apply to the skin for 12 hours and remove for at least 12 hours before re-applying. Please contact your primary care provider to arrange for a follow-up visit regarding your chronic pain to your lower back and further management / treatment. You may return back to emergency department with any new or worsening symptoms or concerns. Prescriptions: New cyclobenzaprine 10 mg tablet 10 mg PO TID PRN (Reason: muscle spasm) Qty: 20 0RF lidocaine [Lidoderm] 5 % adhesive patch,medicated 2 patch topical DAILY Qty: 30 0RF Rx Instructions: leave on most painful area for up to 12 hrs No Action dicyclomine 20 mg tablet 20 mg PO TID PRN (Reason: abdominal pain) Qty: 20 0RF naproxen 500 mg tablet 500 mg PO PRN (Reason: pain) Referrals: Korin Aldridge CLINICAL REIMBURSEMENT SPECIALIST [Primary Care Provider] - Print Language: Cambodian
[2024-01-27 16:45] VITALS: BP 116/58; PULSE 82; RESP 18; TEMP 36.6; O2SAT 100
[2024-01-27 17:27] VITALS: BP 116/58; PULSE 82; RESP 18; TEMP 36.6; O2SAT 100
== END 2024-01-27 17:28 | disposition home or self-care (01) ==
PROVIDERS: Emergency Provider Internal Medicine; PCP Nurse Practitioner Primary Care
DX: S39.012A Strain of muscle, fascia and tendon of lower back, initial encounter (principal); X58.XXXA Exposure to other specified factors, initial encounter; Y93.9 Activity, unspecified; Y92.9 Unspecified place or not applicable; Y99.9 Unspecified external cause status
CPT/HCPCS: 99282; 99283

== ENCOUNTER 2024-03-07 13:48 | Outpatient (REF) | payer MEDICAID, SELFPAY ==
--- NOTE | ~2024-03-07 | XR_ITS ---
EXAMINATION: XR SACROILIAC JOINTS CLINICAL INFORMATION: Sacrococcygeal disorders not otherwise specified. COMPARISON: None available. TECHNIQUE: 3 views of the sacroiliac joints FINDINGS: Degenerative changes in lower lumbar spine. Degenerative changes in the bilateral sacroiliac joints with joint space narrowing, right greater than left. XR/XR sacroiliac joint min 3V IMPRESSION: Degenerative changes in the bilateral sacroiliac joints with joint space narrowing, right greater than left.
== END 2024-03-07 13:49 | disposition home or self-care (01) ==
LOC: HO.XRAY 13:48
PROVIDERS: Absent Provider Nurse Practitioner; PCP Nurse Practitioner Primary Care; Referring Provider Nurse Practitioner Primary Care; Visit Provider Nurse Practitioner Family
DX: M53.3 Sacrococcygeal disorders, not elsewhere classified (principal); M47.817 Spondylosis without myelopathy or radiculopathy, lumbosacral region; M51.36 Other intervertebral disc degeneration, lumbar region; M62.830 Muscle spasm of back
CPT/HCPCS: 72202; 99212

== ENCOUNTER 2024-03-07 13:48 | Outpatient (AMB) | payer MEDICAID, SELFPAY ==
--- NOTE | 2024-03-07 13:51 | A.OFFVIS_ITS ---
Vital Signs 03/07/24 13:56 Height 5 ft 1 in Weight 213 lb 6 oz BMI 40.3 BP 118/70 Blood Pressure Location Lt brachial Position Sitting Pulse 72 Pulse Source Pulse Oximeter Pulse Oximetry (%) 99 Oxygen Delivery Method Room Air Intake Visit Reasons: LUMBAR BACK PAIN Intake Note: Pain today 03/10 Overlock Operator Required: No Accompanied by: Self / Same As Patient Allergies ketorolac [From TORADOL] Allergy (Severe, Verified 03/07/24 13:55) HOTNESS HPI HPI LUMBAR BACK PAIN: Details: Patient is a pleasant 43 years old female with prior history of chronic low back pain with right radiculopathy, joint pain, depression, PTSD, presents today for initial evaluation of low back pain with radiation into her right lower extremity without specific dermatome. Denies any recent or past trauma, injury or falls. Reports chronic back pain since 2007 with right sided radicular symptoms. 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 Back pain is axial and also radiates into her right buttock, sacral area and into her right lateral hip and thigh with intermittent groin pain. Pain affects her mobility, prolonged positions, movements, sleep and social interactions. Pain is worst during the day, ranges 6-10/10 and is constant. Reports occasional bladder incontinence. To this point, patient has not tried any dedicated conservative treatment in the forms of physical therapy, chiropractic, acupuncture or injections. Denies any fever, chills, weight loss, abdominal pain, foot drop, weakness, bowel dysfunction, numbness or tingling, or saddle anesthesia. Location: Lower back, radiates into right buttock and right leg Duration: Chronic pain for since 2007, worsening for past one year Characteristics of symptom or complaint: Aching, stiffness, stabbing, sharp, throbbing, spasming Aggravating or associated factors: Walking, bending, sleeping, prolonged sitting, changing position, coughing Relieving factors: Tried Tylenol, naproxen, Flexeril, lidocaine patches-no relief Treatment: None [facility] Medical History (Updated 03/07/24 @ 14:22 by PRIYA Chambers) PTSD (post-traumatic stress disorder) Hx of abnormal cervical Pap smear Hx of bipolar disorder Surgical History S/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 H/O LEEP History of cone biopsy of cervix Hx of tubal ligation Family History Maternal Aunt History of breast cancer Social History Alcohol intake: never Patient Tobacco Use Status: Never used Tobacco 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 No acute distress. Morbidly obese. Alert and oriented. Mood and affect appropriate. Follows and participates in conversation appropriately. Respiratory effort is unlabored. No cough. Able to transition from sit to stand unassisted. Ambulates with bilaterally normal heel strike and toe off. General: Yes no CVA tenderness Back/Spine/Pelvis Other: Patient is able to walk and stand on heels and tip toes with no difficulties demonstrating good motor tone. No limping. Can flex forward to 65-70 degrees and extend to 5-10 degrees before experiencing lumbar pain. Demonstrates 5/5 strength of quadriceps bilaterally as well as flexion/dorsiflexion of bilateral feet against resistance. 2+ pedal pulses bilaterally. Seated straight leg rise with dorsiflexion negative bilaterally. +2 patellar and achilles reflexes bilaterally. Facet loading test positive bilaterally. Sonia sign, Mohinder?s, Gaenslen, Pelvic compression and Stinchfield tests are positive bilaterally. No groin pain with I/E hip rotations. Valsalva maneuver negative. Back: no CVA tenderness Cervical Spine: cervical ROM normal, cervical muscular tenderness and No Cervical spine tenderness Thoracic/Lumbar Spine: thoracic and lumbar spine normal to inspection, No Thoracic/lumbar spine scar(s), Lasegue's sign negative, straight leg raise negative bilaterally, pain with thoraco-lumbar ROM, paraspinal muscle tenderness, thoraco-lumbar ROM limited, No thoracic spinal tenderness and lumbar spinal tenderness (L4-S1) Pelvis: buttock tenderness bilaterally Sacroiliac joints: bilaterally (right>left) tender to palpation Extrem General: Yes full ROM, Yes capillary refill normal, Yes no clubbing, cyanosis or edema and Yes no calf tenderness Results Reviewed Results Reviewed: CT abdomen pelvis wo IV con 08/29/23 OSSEOUS STRUCTURES: Degenerative disc disease at L5-S1. Assessment & Plan Assessment & Plan (1) Sacroiliac joint pain: Code(s): M53.3 - Sacrococcygeal disorders, not elsewhere classified Category: Medical (2) Lumbosacral spondylosis: Code(s): M47.817 - Spondylosis without myelopathy or radiculopathy, lumbosacral region Category: Medical (3) Lumbar degenerative disc disease: Code(s): M51.36 - Other intervertebral disc degeneration, lumbar region Category: Medical (4) Muscle spasm of back: Code(s): M62.830 - Muscle spasm of back Category: Medical (5) Lumbosacral spondylosis: Code(s): M47.817 - Spondylosis without myelopathy or radiculopathy, lumbosacral region Category: Medical (6) Lumbar degenerative disc disease: Code(s): M51.36 - Other intervertebral disc degeneration, lumbar region Category: Medical Plan Discussed treatments for axial low back and SIJ pain as well as mild discogenic low back pain. Recommend formal physical therapy as initial steps. Script provided. Will obtain sacroiliac joint xray to assess degree of degenerative changes. Tentatively plan for bilateral therapeutic sacroiliac joint injections with local and fluoroscopy. Expectations, risks and benefits were reviewed. We also discussed PNS trial, SI joint stabilization and RFA procedures for a longer term pain relief. Informational brochures provided to patient. Scripts provided for methocarbamol and Tylenol Arthritis. Side effects and precautions discussed with patient. Patient will stop Flexeril due to significant somnolences and drowsiness. All questions and concerns have been answered and patient agreed with the plan. Follow up for xray results and sooner as needed. Orders: Orders XR sacroiliac joint min 3V 03/07/24 M53.3 - Sacrococcygeal disorders, not elsewhere classified PT Evaluation and Treatment 03/07/24 M47.817 - Spondylosis without myelopathy or radiculopathy, lumbosacral region, M51.36 - Other intervertebral disc degeneration, lumbar region, M53.3 - Sacrococcygeal disorders, not elsewhere classified Medications: New methocarbamol 750 mg PO Q8H 30 days PRN 90 tabs 0RF muscle spasm M47.817 - Spondylosis without myelopathy or radiculopathy, lumbosacral region, M51.36 - Other intervertebral disc degeneration, lumbar region, M62.830 - Muscle spasm of back acetaminophen ER (Arthritis Pain Relief (acetaminophen) ER) 1,300 mg (2 x 650 mg) PO Q12H PRN 120 tabs 1RF pain M47.817 - Spondylosis without myelopathy or radiculopathy, lumbosacral region, M51.36 - Other intervertebral disc degeneration, lumbar region, M53.3 - Sacrococcygeal disorders, not elsewhere classified Discontinued cyclobenzaprine Discontinued Reason: Patient Completed Course 10 mg PO TID PRN 20 tabs 0RF muscle spasm Coding Level of Care Code New Pt Level 4 (05571) Diagnoses Sacroiliac joint pain M53.3 Lumbosacral spondylosis M47.817 Lumbar degenerative disc disease M51.36 Muscle spasm of back M62.830
[2024-03-07 13:56] VITALS: BP 118/70; PULSE 72; O2SAT 99; BMI 40.3
== END 2024-03-07 14:27 | disposition home or self-care (01) ==
PROVIDERS: PCP Nurse Practitioner Primary Care; Referring Provider Nurse Practitioner Primary Care; Visit Provider Nurse Practitioner Family
DX: M53.3 Sacrococcygeal disorders, not elsewhere classified (principal); M47.817 Spondylosis without myelopathy or radiculopathy, lumbosacral region; M51.36 Other intervertebral disc degeneration, lumbar region; M62.830 Muscle spasm of back
CPT/HCPCS: 99204

== ENCOUNTER 2024-04-02 13:25 | Outpatient (REF) | payer MEDICAID, SELFPAY | END 2024-04-02 13:26 | disposition home or self-care (01) | LOC: HO.MAMMO 13:25 | PROVIDERS: PCP Nurse Practitioner Primary Care; Visit Provider Nurse Practitioner Primary Care | DX: Z12.31 Encounter for screening mammogram for malignant neoplasm of breast (principal) | CPT/HCPCS: 77063; 77067 ==

== ENCOUNTER → 2024-04-02 13:30 | Outpatient (BNV) | payer MEDICAID, SELFPAY | PROVIDERS: PCP Nurse Practitioner Primary Care; Visit Provider Radiology Diagnostic Radiology | DX: Z12.31 Encounter for screening mammogram for malignant neoplasm of breast (principal) | CPT/HCPCS: 77063; 77067 ==

== ENCOUNTER 2024-05-30 10:00 | Outpatient (RCR) | payer MEDICAID, SELFPAY ==
--- NOTE | 2024-05-28 13:09 | MHC.PT.EP ---
[facility] [place] Office [place] Office [place] Office [address] Salome Ramos [address] [phone] F: [phone] F: [phone] F: [phone] F: [phone] Physical Therapy Plan of Care Date of Evaluation: 05/28/24 Date of Surgery: Diagnosis: SACROCOCCYGEAL DISORDERS, SPONDYLOSIS , LUMBAR DISC DEGEN Assessment: 43 YO FEMALE REF TO PT W H/O CHRONIC LS PAIN W INTERM RADIC SXS Rt LE- HER RECENT XRAY REVEALED Degenerative changes in the bilateral sacroiliac joints with joint space narrowing, right greater than left. SHE HAS SIGNIF LIMITATIONS W FUNCT MOB, DECR ACTVITY LEONARDO , REQ SOME ASSIST W LOWER BODY DRESSING, AND DECR LEONARDO TO STANDING/ SITTING/ SLEEPING/ INCR WALKING. OBJECTIVE FINDINGS: DECR TRUNK AND Rt LE ROM, LIMITED HIP FLEXIB, (+) STENGTH DEFICITS ON LUMBOPELVIC REGION, (+) TISSUE TENSION IN Rt > Lt PS MM, AND (+) LUMBOPELVIC ASYMM. SHE HAS INTERM RADIC SXS INTO Rt LE. SHE AGREES W PT POC, ADDRESSING THE ABOVE FINDINGS AND INCR HER FUNCTIONAL INDEP. 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 Manual therapy to restore motion and function. Therapeutic exercise to improve strength and flexibility. Neuromuscular re-education for posture and balance. Therapeutic activities to return to functional activities of daily living. Electronically signed by: CHECO JOSHI,PT Please sign and return to therapist. Thank you for your referral.
--- NOTE | 2024-06-16 11:18 | MHC.PT.DC ---
[facility] [place] Office [place] Office [place] Office [address] Salome Ramos 140 [facility] [phone] F: [phone] F: [phone] F: [phone] F: [phone] Physical Therapy Discharge Report Diagnosis: SACROCOCCYGEAL DISORDERS, SPONDYLOSIS , LUMBAR DISC DEGEN Date of Surgery: Date of Evaluation: 05/28/24 Date of Discharge: 06/16/24 Treatments to Date: 2 Cancellations to Date: 2 No Shows to Date: 3 Discharge Status: Patient Elected to Stop Visit Non-compliance Discharge Summary: [facility] WAS A GOOD CANDIDATE FOR SKILLED PT TO ADDRESS HER LBP AND SACCROCOCCYGEAL DYSFUNCTION- UNFORTUNATELY, THE Pt DOD NOT ATTEND HER SCHED PT APPT AND DUE TO OUR DEPT ATTENDANCE POLICY. SHE IS DISCHARGED THIS DATE FROM PT- SHE DID NOT MEET HER PT GOALS. Electronically signed by: CHECO JOSHI,PT Please sign and return to therapist. Thank you for your referral.
== END 2024-06-16 11:19 | disposition home or self-care (01) ==
LOC: HO.PT 10:00
PROVIDERS: PCP Nurse Practitioner Primary Care; Visit Provider Nurse Practitioner Family
DX: M53.3 Sacrococcygeal disorders, not elsewhere classified (principal); M47.817 Spondylosis without myelopathy or radiculopathy, lumbosacral region; M51.36 Other intervertebral disc degeneration, lumbar region
CPT/HCPCS: 97110; 97162; 97530; 97535

== ENCOUNTER 2024-06-27 11:09 | Outpatient (REF) | payer MEDICAID, SELFPAY ==
[2024-06-27 13:48] LABS: Bacterial Vaginosis PCR NEGATIVE (Negative); Candida Group PCR DETECTED (Not Detect); Candida glab krusei PCR NOT DETECTED (Not Detect); Trichomonas vaginalis PCR NOT DETECTED (Not Detect)
[2024-06-27 14:17] LABS: CT PCR NOT DETECTED (Not Detect.); NG PCR NOT DETECTED (Not Detect.)
== END 2024-06-27 11:10 | disposition home or self-care (01) ==
LOC: HO.LNP 11:09
PROVIDERS: PCP Nurse Practitioner Primary Care; Visit Provider Advanced Practice Midwife
DX: Z01.419 Encounter for gynecological examination (general) (routine) without abnormal findings (principal); N89.8 Other specified noninflammatory disorders of vagina
CPT/HCPCS: 0352U; 87491; 87591; 99396

== ENCOUNTER 2024-06-27 11:09 | Outpatient (AMB) | payer MEDICAID, SELFPAY ==
--- NOTE | 2024-06-27 11:12 | MHC.OFFVIS ---
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 Doing well with no concerns. She tries to eat healthy, hx. of back pain, had PT in past, no improvement. Regular monthly menses. Hx. of BLTL. Currently is sexually active. STI screening offered; she accepts. Has an occasional odor. Denies family history of breast, ovarian or colon cancer. Last pap smear 2021, negative. History of cone LEEP 2017. Mammogram: 2023. 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 Sexual orientation: Straight/Heterosexual Gender identity: Female Female Reproductive History Menstrual Age of Menarche: 11 Duration of menses: 3-5 days Date of last menstrual period: 06/11/24 control method: permanent sterilization Permanent Sterilization: BTL Total pregnancies: 4 Full term: 3 Number of Living Children: 3 Date of last pap smear: 08/31/22 (neg pap and hpv) History of abnormal pap smear: Yes (see intake note) Date of Mammogram: 04/02/24 (Birad 1) Review of Systems Const All systems reviewed & are unremarkable except as noted in HPI and below Reports as per HPI Eyes Reports no additional complaints ENT Reports no additional complaints Card Reports no additional complaints Resp Reports no additional complaints GI Reports as per HPI and Reports no additional complaints Reports as per HPI Musc Reports no additional complaints Skin/Breast Reports as per HPI Neuro Reports no additional complaints Psych Reports no additional complaints Endo Reports no additional complaints [place]/Lymph Reports no additional complaints Aller/Immun Reports no additional complaints Physical Exam Vital Signs: Last Vital Signs BP 104/60 06/27/24 11:16 BMI result Body Mass Index 40.6 Const General: cooperative, healthy appearing, no acute distress, well developed and alert Orientation/consciousness: patient oriented x3 HEENT Head: Yes normal to inspection Eyes General: appearance normal, both eyes and all related structures Neck Neck: Yes normal visual inspection Thyroid: Thyroid normal Chest Chest palpation & inspection: normal inspection of the chest and other (no puckering, dimpling, peau de orange, retraction, discharge, masses) Breast/axilla inspection: normal inspection of the breasts Breast/axilla palpation: normal palpation of the breasts Resp Effort & Inspection: normal respiratory effort GI Inspection: Yes normal to inspection Palpation (GI): Soft to palpation Rectal Exam - Female: deferred General: Yes bladder normal to palpation External Female Exam: normal external appearance and normal appearance of the urethra Speculum Exam - Vagina: normal appearance of the vagina, normal palpation and normal vaginal discharge Speculum Exam - Cervix: normal appearance of the cervix and normal palpation Bimanual exam- vagina & uterus: normal bimanual exam, normal palpation, uterine size normal, bladder normal to palpation, normal palpation and non-tender Bimanual Exam- Adnexa, other: no masses Skin General skin exam: no rashes or lesions noted Rashes: no rashes Neuro General: patient oriented x3 Cognition (Neuro): normal cognition Extrem General: Yes normal to inspection Psych Attitude: cooperative Thought process: Normal thought process present Assessment & Plan Assessment & Plan (1) Encounter for well woman exam with routine gynecological exam: Code(s): Z01.419 - Encounter for gynecological examination (general) (routine) without abnormal findings Category: Medical (2) Vaginal odor: Code(s): N89.8 - Other specified noninflammatory disorders of vagina Plan Discussed: Current recommendations for pap smears per ASCCP guidelines. BV panel obtained, wait for results for plan of care. Breast awareness and periodic breast exams. Maintain a healthy lifestyle including a well balanced diet and routine exercise. Monitor menstrual cycles, report any unscheduled bleeding, bleeding episodes <24 days apart or heavy/prolonged menstrual bleeding. Call the office for a follow up for any concerns. Mammogram yearly. Colonoscopy >45, or at risk sooner. Patient verbalizes understanding and agrees to the plan of care. She was given opportunity to ask questions and all questions were answered to the best of my ability. 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 This note is constructed using voice recognition software. While every effort has been made to ensure accuracy, swatch checker errors may have been included. Orders: Orders CT NG by PCR Today N89.8 - Other specified noninflammatory disorders of vagina Bacterial Vaginosis Panel Today N89.8 - Other specified noninflammatory disorders of vagina Coding Level of Care Code Est Pt Prev Care 40-64y(12003) Diagnoses Encounter for well woman exam with routine gynecological exam Z01.419 Vaginal odor N89.8
[2024-06-27 11:16] VITALS: BP 104/60; BMI 40.6
== END 2024-06-27 11:52 | disposition home or self-care (01) ==
PROVIDERS: PCP Nurse Practitioner Primary Care; Visit Provider Advanced Practice Midwife
DX: Z01.419 Encounter for gynecological examination (general) (routine) without abnormal findings (principal); N89.8 Other specified noninflammatory disorders of vagina
CPT/HCPCS: 99396

== ENCOUNTER 2024-06-27 11:45 | Outpatient (REF) | payer MEDICAID, SELFPAY | END 2024-06-27 11:46 | disposition home or self-care (01) | LOC: HO.LAB 11:45 | PROVIDERS: Visit Provider Advanced Practice Midwife | DX: Z13.89 Encounter for screening for other disorder (principal) ==

== ENCOUNTER 2024-07-04 09:33 | Outpatient (AMB) | payer MEDICAID, SELFPAY ==
--- NOTE | 2024-07-04 09:37 | A.OFFVIS_ITS ---
Vital Signs 07/04/24 09:40 Height 5 ft 1 in Weight 215 lb BMI 40.6 BP 94/52 L Blood Pressure Location Lt brachial Position Sitting Pulse 84 Pulse Source Pulse Oximeter Pulse Oximetry (%) 100 Oxygen Delivery Method Room Air Intake Visit Reasons: PROCEDURE DISCUSSION Intake Note: Pain today 07/10 Pad Machine Offbearer Required: No Accompanied by: Other Relationship Allergies ketorolac [From TORADOL] Allergy (Severe, Verified 07/04/24 09:41) HOTNESS HPI Comments Details: Patient presents today to follow up after starting physical therapy. She reports no improvement in her daily functioning, mobility or sleep. Patient reports mod erate-severe low back pain unrelieved with naproxen or Ibuprofen, muscle relaxant and activity modifications. She stopped working due to significant and disabling pain. Patient reports she lives with her family on the 4th floor of apartment complex and climbing or descending stairs causes significant increase in her symptoms. She has reached out to her Landlord for a first or second story unit but has been unsuccessful to achieve a lower unit accommodation. Recent sacroiliac joint xray showed degenerative changes in the bilateral sacroiliac joints with joint space narrowing, right greater than left. Patient is interested to undergo therapeutic injections as initial steps. She also reports neck pain with movements, especially with extension and lateral rotations and reports frequent neck cracking sounds. Denies any fever or chills, abdominal groin pain, weakness, foot drop dysfunction or saddle anesthesia. PRIOR: Patient is a pleasant 43 years old female with prior history of chronic low back pain with right radiculopathy, joint pain, depression, PTSD, presents today for initial evaluation of low back pain with radiation into her right lower extremity without specific dermatome. Denies any recent or past trauma, injury or falls. Reports chronic back pain since 2007 with right sided radicular symptoms. 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 Back pain is axial and also radiates into her right buttock, sacral area and into her right lateral hip and thigh with intermittent groin pain. Pain affects her mobility, prolonged positions, movements, sleep and social interactions. Pain is worst during the day, ranges 6-10/10 and is constant. Reports occasional bladder incontinence. To this point, patient has not tried any dedicated conservative treatment in the forms of physical therapy, chiropractic, acupuncture or injections. Denies any fever, chills, weight loss, abdominal pain, foot drop, weakness, bowel dysfunction, numbness or tingling, or saddle anesthesia. 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 No acute distress. Morbidly obese. Alert and oriented. Mood and affect appropriate. Follows and participates in conversation appropriately. Respiratory effort is unlabored. No cough. Able to transition from sit to stand unassisted. Ambulates with bilaterally normal heel strike and toe off. Neck Neck: Yes normal visual inspection, Yes full ROM, Yes no lymphadenopathy, Yes supple, No anterior neck swelling, Yes no JVD and No prominent dorsocervical fat pad General: Yes no CVA tenderness Back/Spine/Pelvis Other: Limited lumbar ROM due to pain. No limping. Lumbar extension and flexion forward reproduces mild-moderate pain. Demonstrates 5/5 strength of quadriceps bilaterally as well as flexion/dorsiflexion of bilateral feet against resistance. 2+ pedal pulses bilaterally. Seated straight leg rise with dorsiflexion negative bilaterally. +2 patellar and achilles reflexes bilaterally. Facet loading test positive bilaterally. Sonia sign, Mohinder?s, Gaenslen, Pelvic compression and Stinchfield tests are positive bilaterally, ri ght>left. No groin pain with I/E hip rotations. Valsalva maneuver negative. Back: no CVA tenderness Cervical Spine: cervical ROM normal, cervical muscular tenderness, pain with cervical ROM, No Cervical spine tenderness and No step off deformity Thoracic/Lumbar Spine: thoracic and lumbar spine normal to inspection, No Thoracic/lumbar spine scar(s), Lasegue's sign negative, straight leg raise negative bilaterally, pain with thoraco-lumbar ROM, paraspinal muscle tenderness, thoraco-lumbar ROM limited, No thoracic spinal tenderness and lumbar spinal tenderness (L4-S1) Pelvis: buttock tenderness bilaterally Sacroiliac joints: bilaterally (right>left) tender to palpation Extrem General: Yes capillary refill normal, Yes no clubbing, cyanosis or edema and Yes no calf tenderness Results Reviewed Results Reviewed: CT abdomen pelvis wo IV con 08/29/23 OSSEOUS STRUCTURES: Degenerative disc disease at L5-S1. XR SACROILIAC JOINTS 03/07/24 CLINICAL INFORMATION: Sacrococcygeal disorders not otherwise specified. Degenerative changes in the bilateral sacroiliac joints with joint space narrowing, right greater than left. IMPRESSION: Degenerative changes in the bilateral sacroiliac joints with joint space narrowing, right greater than left. Assessment & Plan Assessment & Plan (1) Muscle spasm of back: Code(s): M62.830 - Muscle spasm of back Category: Medical (2) Cervicalgia: Code(s): M54.2 - Cervicalgia Category: Medical (3) Sacroiliac joint pain: Code(s): M53.3 - Sacrococcygeal disorders, not elsewhere classified Category: Medical (4) Lumbosacral spondylosis: Code(s): M47.817 - Spondylosis without myelopathy or radiculopathy, lumbosacral region Category: Medical (5) Sacroiliitis: Code(s): M46.1 - Sacroiliitis, not elsewhere classified Category: Medical (6) Lumbar degenerative disc disease: Code(s): M51.36 - Other intervertebral disc degeneration, lumbar region Category: Medical (7) Lumbar degenerative disc disease: Code(s): M51.36 - Other intervertebral disc degeneration, lumbar region Category: Medical Plan Sacroiliac joint xray results were discussed with patient. She could not continue PT after 2 sessions due to significant pain exacerbation. Reviewed interventional treatments with patient and family, including therapeutic sacroiliac joint injections, Sprint PNS trial, SI joint stabilization, Curonix PNS trial vs implant and RFA procedures for a longer term pain relief. Informational brochures provided to patient at the previous visit. Patient prefers Bilateral Therapeutic Sacroiliac Joint Injections with local and fluoroscopy as initial steps. Expectations, risks and benefits were reviewed. Patient is aware she will be contacted to schedule this procedure. Scripts provided for diclofenac potassium and Tylenol Arthritis. Side effects and precautions discussed with patient. Patient will stop methocarbamol and naproxen due to minimal benefit. Script sent for Sacroiliac joint belt to [facility] in [place] for lumbosacral support. Letters provided for housing accomodation today per patient's request. All questions and concerns have been answered and patient agreed with the plan. Follow up for xray results and sooner as needed. Orders: Orders XR cervical spine 4V Today M54.2 - Cervicalgia, M62.830 - Muscle spasm of back Medications: New back brace As directed 1 ea 0RF lumbosacral support M46.1 - Sacroiliitis, not elsewhere classified, M53.3 - Sacrococcygeal disorders, not elsewhere classified diclofenac potassium Take it with food and full glass of water 50 mg PO BID 30 days 60 tabs 0RF pain M46.1 - Sacroiliitis, not elsewhere classified, M47.817 - Spondylosis without myelopathy or radiculopathy, lumbosacral region, M53.3 - Sacrococcygeal disorders, not elsewhere classified Discontinued methocarbamol Discontinued Reason: Patient no longer taking 750 mg PO Q8H 30 days PRN 90 tabs 0RF muscle spasm M47.817 - Spondylosis without myelopathy or radiculopathy, lumbosacral region, M51.36 - Other intervertebral disc degeneration, lumbar region, M62.830 - Muscle spasm of back Coding Level of Care Code Est Pt Level 4 (07326) Complex EM visit Add On G2211 Diagnoses Muscle spasm of back M62.830 Cervicalgia M54.2 Sacroiliac joint pain M53.3 Lumbosacral spondylosis M47.817 Sacroiliitis M46.1 Lumbar degenerative disc disease M51.36
[2024-07-04 09:40] VITALS: BP 94/52; PULSE 84; O2SAT 100; BMI 40.6
== END 2024-07-04 10:08 | disposition home or self-care (01) ==
PROVIDERS: PCP Nurse Practitioner Primary Care; Visit Provider Nurse Practitioner Family
DX: M62.830 Muscle spasm of back (principal); M54.2 Cervicalgia; M53.3 Sacrococcygeal disorders, not elsewhere classified; M47.817 Spondylosis without myelopathy or radiculopathy, lumbosacral region; M46.1 Sacroiliitis, not elsewhere classified; M51.36 Other intervertebral disc degeneration, lumbar region
CPT/HCPCS: 99214

== ENCOUNTER → 2024-07-04 09:33 | Outpatient (BNVA) | payer MEDICAID, SELFPAY | PROVIDERS: PCP Nurse Practitioner Primary Care; Visit Provider Nurse Practitioner Family | DX: M62.830 Muscle spasm of back (principal); M54.2 Cervicalgia; M53.3 Sacrococcygeal disorders, not elsewhere classified; M47.817 Spondylosis without myelopathy or radiculopathy, lumbosacral region; M46.1 Sacroiliitis, not elsewhere classified; M51.369 Other intervertebral disc degeneration, lumbar region without mention of lumbar back pain or lower extremity pain | CPT/HCPCS: 99212 ==

== ENCOUNTER 2024-08-19 06:24 | Outpatient (REF) | payer MEDICAID, SELFPAY | END 2024-08-19 06:25 | disposition home or self-care (01) | LOC: CF 06:24 | PROVIDERS: Visit Provider Anesthesiology | DX: M46.1 Sacroiliitis, not elsewhere classified (principal); M53.3 Sacrococcygeal disorders, not elsewhere classified | CPT/HCPCS: 27096; J2003; J2795; J3301; Q9967 ==

== ENCOUNTER 2024-08-19 13:02 | Outpatient (AMB) | payer MEDICAID, SELFPAY ==
--- NOTE | 2024-08-19 13:13 | MHC.OFFVIS ---
Vital Signs 08/19/24 13:53 08/19/24 13:53 08/19/24 14:20 Height 5 ft 1 in 5 ft 1 in Weight 215 lb 215 lb BMI 40.6 40.6 BP 112/52 L 96/52 L 110/68 Blood Pressure Location Lt brachial Lt brachial Rt brachial Position Sitting Sitting Sitting Respiration 17 17 Pulse 98 85 Pulse Source Pulse Oximeter Pulse Oximeter Pulse Oximetry (%) 95 98 Oxygen Delivery Method Room Air Room Air Comment pre-op post-op Intake Visit Reasons: BILATERAL THERAPEUTIC SIJ INJECTIONS Allergies ketorolac [From TORADOL] Allergy (Severe, Verified 08/19/24 13:55) HOTNESS PFSH Medical History PTSD (post-traumatic stress disorder) Hx of abnormal cervical Pap smear Hx of bipolar disorder Surgical History 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 H/O LEEP History of cone biopsy of cervix Hx of tubal ligation Family History Maternal Aunt History of breast cancer Social History Alcohol intake: never Patient Tobacco Use Status: Never used Tobacco 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 Sexual orientation: Straight/Heterosexual Gender identity: Female Female Reproductive History Menstrual Age of Menarche: 11 Physical Exam Vital Signs: Last Vital Signs Pulse 85 08/19/24 13:53 Resp 17 08/19/24 13:53 BP 110/68 08/19/24 14:20 Pulse Ox 98 08/19/24 13:53 Oxygen Delivery Method Room Air 08/19/24 13:53 BMI result Body Mass Index 40.6 Assessment & Plan Assessment & Plan (1) Sacroiliitis: Code(s): M46.1 - Sacroiliitis, not elsewhere classified Category: Medical (2) Sacroiliac joint dysfunction of both sides: Code(s): M53.3 - Sacrococcygeal disorders, not elsewhere classified Category: Medical Plan Bilateral therapeutic sacroiliac joint injection Informed consent was explained thoroughly to the patient.? All questions about benefits and risks for the procedure were answered. Patient came to the operating room and was positioned prone on the operating table with the pillow under the abdomen.? The lower back and buttocks of the patient were prepped with ChloraPrep prepped and draped with sterile utility towels.? Sterilely draped C-arm was brought over the operating field and sq picture of patient's pelvis was demonstrated on the screen.? 1st for the right joint tilting C-arm contralateral to the site of the joint the most posterior portion of the joints was superimposed with anterior silhouette of the joint.? Skin was injected in the projection of the joint slightly medial to the location of the joint with 25 gauge 1/2 inch needle using local lidocaine 2% . After that 22 gauge 3 and 1/2 inch needle was driven to the right joint in tunnel vision fashion.? When needle entered the joint capsule injection of the contrast was performed demonstrating intra-articular and minimally periarticular spread of the contrast.? After that 4 cc. of ropivacaine 0.5% mixed with Kenalog 40 mg was injected into the right joint.? After that the procedure was performed on the left side in the mirroring fashion, the doses of the local anesthetic and Kenalog were the same. Total dose of Kenalog was 80 mg. Upon completion of the injections the needles were removed . Sterile dressing was applied.? Upon completion of the injection patient was taken outside of the operating room to the recovery room where recovered uneventfully. Orders: Orders FL guidance in treatment room 08/19/24 M46.1 - Sacroiliitis, not elsewhere classified Coding Level of Care Code Procedure Only Diagnoses Sacroiliitis M46.1 Sacroiliac joint dysfunction of both sides M53.3
[2024-08-19 13:53] VITALS: BP 112/52; BP 96/52; PULSE 85; PULSE 98; RESP 17; O2SAT 95; O2SAT 98; BMI 40.6
[2024-08-19 14:20] VITALS: BP 110/68
== END 2024-08-19 14:13 | disposition home or self-care (01) ==
LOC: HO.PMCPRC 13:02
PROVIDERS: PCP Nurse Practitioner Primary Care; Visit Provider Anesthesiology
DX: M46.1 Sacroiliitis, not elsewhere classified (principal); M53.3 Sacrococcygeal disorders, not elsewhere classified
CPT/HCPCS: 27096

== ENCOUNTER 2024-09-16 13:06 | Outpatient (AMB) | payer MEDICAID, SELFPAY ==
--- NOTE | 2024-09-16 13:09 | MHC.OFFVIS ---
Vital Signs 09/16/24 13:12 Height 5 ft 1 in Weight 219 lb 4 oz BMI 41.4 BP 110/73 Blood Pressure Location Lt brachial Position Sitting Pulse 90 Pulse Source Pulse Oximeter Pulse Oximetry (%) 99 Oxygen Delivery Method Room Air Intake Visit Reasons: BILATERAL THERAPEUTIC SIJ INJECTIONS Intake Note: Pain today 0/10 Analysis Internship Required: No Accompanied by: Self / Same As Patient Allergies ketorolac [From TORADOL] Allergy (Severe, Verified 09/16/24 13:13) HOTNESS HPI Comments Details: Patient presents today for follow up to assess response to Bilateral Therapeutic SIJ injections on 08/19/[address] Gonzales. Patient reports 0% pain relief since procedure but reports no pain today. She reports having significant pain yesterday and for past week. Patient reports she has wide spread body pain and multiple tender points of upper and lower extremities as well as bilateral sacral areas and axial low back pain. She reports chronic fatigue and waking up tired every morning with associated symptoms of muscle pain and spasms, tiredness, headaches and insomnia. These symptoms have been chronic and presents for more than 3 months. This is consistent with fibromyalgia. She is concerned about gaining 4 lbs recently. She attributes this to decreased physical activity due to pain. She reports good pain relief with oral diclofenac without any side effects. Patient reports she has not been able to move to a first floor apartment unit, despite our office providing her letter for this. At this time, she would like to pause any interventional treatments. Denies any recent cough, cold, infection, fever or other significant changes in medical history since last office visit. Past Procedures: 08/19/24: Bilateral Therapeutic SIJ injection-0% pain relief, pain is rated at 0/10 on 09/16/24 PRIOR: Patient presents today to follow up after starting physical therapy. She reports no improvement in her daily functioning, mobility or sleep. Patient reports moderate-severe low back pain unrelieved with naproxen or Ibuprofen, muscle relaxant and activity modifications. She stopped working due to significant and disabling pain. Patient reports she lives with her family on the 4th floor of apartment complex and climbing or descending stairs causes significant increase in her symptoms. She has reached out to her Landlord for a first or second story unit but has been unsuccessful to achieve a lower unit accommodation. Recent sacroiliac joint xray showed degenerative changes in the bilateral sacroiliac joints with joint space narrowing, right greater than left. Patient is interested to undergo therapeutic injections as initial steps. She also reports neck pain with movements, especially with extension and lateral rotations and reports frequent neck cracking sounds. Denies any fever or chills, abdominal groin pain, weakness, foot drop dysfunction or saddle anesthesia. PRIOR: Patient is a pleasant 43 years old female with prior history of chronic low back pain with right radiculopathy, joint pain, depression, PTSD, presents today for initial evaluation of low back pain with radiation into her right lower extremity without specific dermatome. Denies any recent or past trauma, injury or falls. Reports chronic back pain since 2007 with right sided radicular symptoms. 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 Back pain is axial and also radiates into her right buttock, sacral area and into her right lateral hip and thigh with intermittent groin pain. Pain affects her mobility, prolonged positions, movements, sleep and social interactions. Pain is worst during the day, ranges 6-10/10 and is constant. Reports occasional bladder incontinence. To this point, patient has not tried any dedicated conservative treatment in the forms of physical therapy, chiropractic, acupuncture or injections. Denies any fever, chills, weight loss, abdominal pain, foot drop, weakness, bowel dysfunction, numbness or tingling, or saddle anesthesia. 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 H/O LEEP History of cone biopsy of cervix Hx of tubal ligation Family History Maternal Aunt History of breast cancer Social History Alcohol intake: never Patient Tobacco Use Status: Never used Tobacco 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 Alert and oriented. Mood and affect appropriate. Follows and participates in conversation appropriately. Respiratory effort is unlabored. No cough. No nasal discharge. Able to transition from sit to stand unassisted. Ambulates with bilaterally normal heel strike and toe off. Back: Lumbar extension reproduces moderate pain. Flexion is intact and reproduces mild pain. Multiple widespread TTPs 16/16 bilaterally, including upper and lower extremities.?? Results Reviewed Results Reviewed: CT abdomen pelvis wo IV con 08/29/23 OSSEOUS STRUCTURES: Degenerative disc disease at L5-S1. XR SACROILIAC JOINTS 03/07/24 CLINICAL INFORMATION: Sacrococcygeal disorders not otherwise specified. Degenerative changes in the bilateral sacroiliac joints with joint space narrowing, right greater than left. IMPRESSION: Degenerative changes in the bilateral sacroiliac joints with joint space narrowing, right greater than left. Assessment & Plan Assessment & Plan (1) Fibromyalgia: Code(s): M79.7 - Fibromyalgia Category: Medical (2) Sacroiliac joint pain: Code(s): M53.3 - Sacrococcygeal disorders, not elsewhere classified Category: Medical (3) Lumbosacral spondylosis: Code(s): M47.817 - Spondylosis without myelopathy or radiculopathy, lumbosacral region Category: Medical (4) Muscle spasm of back: Code(s): M62.830 - Muscle spasm of back Category: Medical (5) Lumbar degenerative disc disease: Code(s): M51.36 - Other intervertebral disc degeneration, lumbar region Category: Medical Plan Patient is 1 month status post bilateral therapeutic SI joint injections with no pain relief per patient. However she rates her pain 0/10 today but reports she had significant pain for the past week and yesterday. She has been managing her symptoms with oral diclofenac and finds this beneficial. She reports widespread body pain with multiple tender points consistent with fibromyalgia and axial low back pain. We reviewed diagnostic lumbar medial branch blocks for potential RFA or Sprint PNS trial. Patient would like to hold off on further interventional treatments at this time. Script provided for amitriptyline for fibromyalgia related pain and insomnia. Side effects and precautions discussed with patient. All questions and concerns have been answered and patient agreed with the plan. Follow up for medication review and sooner as needed. Medications: New amitriptyline 10 mg PO BEDTIME 30 days 30 tabs 0RF pain M79.7 - Fibromyalgia Coding Level of Care Code Est Pt Level 4 (68977) Complex EM visit Add On G2211 Diagnoses Fibromyalgia M79.7 Sacroiliac joint pain M53.3 Lumbosacral spondylosis M47.817 Muscle spasm of back M62.830 Lumbar degenerative disc disease M51.36
[2024-09-16 13:12] VITALS: BP 110/73; PULSE 90; O2SAT 99; BMI 41.4
== END 2024-09-16 13:32 | disposition home or self-care (01) ==
PROVIDERS: PCP Nurse Practitioner Primary Care; Visit Provider Nurse Practitioner Family
DX: M79.7 Fibromyalgia (principal); M53.3 Sacrococcygeal disorders, not elsewhere classified; M47.817 Spondylosis without myelopathy or radiculopathy, lumbosacral region; M62.830 Muscle spasm of back; M51.369 Other intervertebral disc degeneration, lumbar region without mention of lumbar back pain or lower extremity pain
CPT/HCPCS: 99214

== ENCOUNTER → 2024-09-16 13:06 | Outpatient (BNVA) | payer MEDICAID, SELFPAY | PROVIDERS: PCP Nurse Practitioner Primary Care; Visit Provider Nurse Practitioner Family | DX: M79.7 Fibromyalgia (principal); M53.3 Sacrococcygeal disorders, not elsewhere classified; M47.817 Spondylosis without myelopathy or radiculopathy, lumbosacral region; M62.830 Muscle spasm of back; M51.360 Other intervertebral disc degeneration, lumbar region with discogenic back pain only | CPT/HCPCS: 99212 ==

== ENCOUNTER 2024-11-26 15:09 | Outpatient (REF) | payer MEDICAID, SELFPAY ==
[2024-11-26 16:47] LABS: Rheumatoid Factor 19.1 IU/mL (<15.0)
--- OUTSIDE RECORDS SUMMARY | 2024-11-26 18:44 | XMS_ITS | Encounter Summary ---
Author Organization [employer] Address [address] [place] [address] Care Team Providers Care Band Teacher Name Role Phone Oly Korin MARQUEZ Primary Care Provider [phone] Encounter Details Date Type Department Care Team (Late st Contact Info) Description 11/26/2024 3:00 PM EST Office Visit [facility] [address] [place] [address] Marion Morales MD [address] [place] [address] Arthralgia, unspecified joint (Primary Dx); Body aches Social History Tobacco Use Types Packs/Day Years Used Date Smoking Tobacco: Never Smokeless Tobacco: Never Depression Answer Date Recorded Patient Health Questionnaire-9 Score 5 05/03/2023 Housing Stability Answer Date Recorded What is your housing situation today? I have alex lee 07/30/[address] you li ve. Do you have problems with any of the following? None of the above 07/30/2023 Food Insecurity Answer Date Recorded Within the past 12 months, y ou worried that your food would run out before you got money to buy more: Never True 07/30/2023 Within the past 12 months,th e food you bought just didn't last and you didn't have enough money to get more: Never True Transportation Answer Date Recorded In the past 12 months, has l ack of transportation kept you from medical appts, meetings, work or from getting things needed for daily living? No 07/30/2023 Utilities Answer Date Recorded In the past 12 months, has t he electric, gas, oil or water company threatened to shut off services in your home? No 07/30/2023 Depression Answer Date Recorded Patient Health Questionnaire-2 Score 2 05/03/2023 Comments Unknown Sex and Gender Information Value Date Recorded Sex Assigned at Female 07/31/2022 10:19 AM EDT Legal Sex Female 10:19 AM EDT Gender Identity Female 07/31/2022 10:19 AM EDT Sexual Orientation Straight 07/31/2022 10 :19 AM EDT documented as of this encounter Last Filed Vital Signs Vital Sign Reading Time Taken Comments Blood Pressure 105/73 11/26/2024 1:57 PM EST Pulse 93 11/26/2024 1:57 PM EST Temperature 36.7 ??C (98.1 ??F) 11/26/2024 1:57 PM ES T Respiratory Rate 16 11/26/2024 1:57 PM EST Oxygen Saturation 100% 11/26/2024 1:57 PM EST Inhaled Oxygen Concentration - - Weight 101 kg (223 lb) 11/26/2024 1:57 PM EST Height 154.9 cm (5' 1 ) 11/26/2024 1:57 PM EST Body Mass Index 42.14 11/26/2024 1:57 PM EST documented in this encounter Progress Notes * Marion Morales MD - 11/26/2024 3:00 PM EST Subjective Patient ID: Lorin Cedillo is a 44 y.o. female who presents for No chief complaint on file.. Arthritis Presents for follow-up visit. She complains of pain. Affected location: multiple joints. Her pain is at a severity of 6/10. Associated symptoms include pain at night and pain while resting. Review of Systems Constitutional: Negative. Respiratory: Negative. Negative for shortness of breath. Cardiovascular: Negative for chest pain and palpitations. Gastrointestinal: Negative. Genitourinary: Negative. Musculoskeletal: Positive for arthritis. Negative for neck pain. Neurological: Negative for headaches. Objective Physical Exam Constitutional: Appearance: Normal appearance. Cardiovascular: Rate and Rhythm: Normal rate and regular rhythm. Pulses: Normal pulses. Heart sounds: Normal heart sounds. Pulmonary: Effort: Pulmonary effort is normal. Abdominal: General: Abdomen is flat. Musculoskeletal: Comments: Multiple tender points Neurological: Mental Status: She is alert. Assessment/Plan Diagnoses and all orders for this visit: Arthralgia, unspecified joint Comments: Mostly Fibromyalgia Labs ordered to rule out Rheumatoid arthritis and Lupus Started on Meloxicam and Short course of Prednisone F/u with PCP Orders: - KASH Screen,IFA, with Reflex to Titer and Pattern; Future - Rheumatoid Factor; Future Body aches - POCT Influenza A manually resulted - POCT Rapid COVID Ag - POCT Influenza B manually resulted Other orders - meloxicam (Mobic) 7.5 MG tablet; Take 1 tablet (7.5 mg) by mouth 2 times daily. - predniSONE (Deltasone) 20 MG tablet; Take 1 tablet (20 mg) by mouth Once per day for 5 days. documented in this encounter Plan of Treatment Upcoming Encounters Date Type Department Care Team (Late st Contact Info) Description 12/17/2024 3:30 PM EDT Office Visit [facility] [address] [place] [address] Korin Aldridge ANP [address] [place], [place] [phone] Scheduled Orders Name Type Priority Associated Diagnoses Orde r Schedule KASH Screen,IFA, with Reflex to Titer and Pattern Lab Routine Arthralgia, unspecified joint Expected: 11/26/2024 (Approximate), Expires: 11/26/2025 documented as of this encounter Procedures Procedure Name Priority Date/Time Associated Diagnosis Comments RHEUMATOID FACTOR Routine 11/26/2024 3:1 1 PM EST Arthralgia, unspecified joint POCT RAPID COVID ANTIGEN Routine 11/26/2024 2:08 PM EST Body aches POCT INFLUENZA B Routine 11/26/2024 2:08 PM EST Body aches POCT INFLUENZA A Routine 11/26/2024 2:08 PM EST Body aches documented in this encounter Results * (ABNORMAL) Rheumatoid Factor (11/26/2024 3:11 PM EST) Rheumatoid Factor 19.1(H) <15.0 IU/mL [facility] Blood Venous blood specimen / Unknown 11/26/2024 3:11 PM EST 11/26/2024 4:15 PM EST us Marion Morales MD LAB BLOOD ORDERABLES Final Resul t [facility] [address] [place] [phone] * POCT Influenza B manually resulted (11/26/2024 2:08 PM EST) Pathologist [facility] Rapid Influenza B Ag Negative Negative, Indeterminate QC Media Lot # [id number] Lot# Expiration Date Swab 11/26/2024 2:08 PM EST Result [facility] us Marion Morales MD POINT OF CARE TEST ENTER/EDIT OR DERABLES Final Result * POCT Rapid COVID Ag (11/26/2024 2:08 PM EST) [facility] Rapid COVID Ag Negative QC Media Lot # [id number] Lot# Expiration Date ,762 Swab 11/26/2024 2:08 PM EST Result [facility] us Marion Morales MD POINT OF CARE TEST ENTER/EDIT OR DERABLES Final Result * POCT Influenza A manually resulted (11/26/2024 2:08 PM EST) [facility] Rapid Influenza A Ag Negative Negative, Indeterminate QC Media Lot # [id number] Lot# Expiration Date Swab Nasopharyngeal structure / Unknown 11/26/2024 2:08 PM EST Result [facility] us Marion Morales MD POINT OF CARE TEST ENTER/EDIT OR DERABLES Final Result documented in this encounter Visit Diagnoses Diagnosis Arthralgia, unspecified joint- Primary Body aches Generalized pain documented in this encounter Additional Health Concerns Assessment Noted Time PHQ-9 Depression Total Score: 5 05/03/20 23 10:07 AM EDT documented as of this encounter Care Teams Band Teacher Relationship Specialty Start Date End Date Korin Aldridge ANP [address] [place] [id number] PCP - General Family Medicine 04/26/23 documented as of this encounter
--- OUTSIDE RECORDS SUMMARY | 2024-11-26 18:44 | XMS_ITS | Encounter Summary ---
Author Organization [employer] Address [address] [place] [address] Care Team Providers Care Nozzleman Name Role Phone Korin Aldridge [place] Primary Care Provider [phone] Encounter Details Date Type Department Care Team (Latest Contact Info) Description 11/26/2024 Travel Social History Tobacco Use Types Packs/Day Years [...] AM EDT documented as of this encounter Plan of Treatment Upcoming Encounters Date Type Department Care Team ( st Contact Info) Description 12/17/2024 3:30 PM EDT Office Visit [facility] [address] [place] [address] Korin Aldridge ANP [address] [place] [address] documented as of this encounter Visit Diagnoses Not on filedocumented in this encounter Additional Health Concerns Assessment Noted Time PHQ-9 Depression Total Score: 5 05/03/20 10:07 AM EDT documented as of this encounter Care Teams Nozzleman Relationship Specialty Start Date End Date Korin Aldridge ANP [address] [place] [address] PCP - General Family Medicine 04/26/23 documented as of this encounter
--- OUTSIDE RECORDS SUMMARY | 2024-11-26 18:45 | XMS_ITS | Encounter Summary ---
Author Organization [employer] Address [address] [place] [address] Care Team Providers Care Senior Technical Recruiter Name Role Phone Korin Aldridge Primary Care Provider [phone] Encounter Details Date Type Department Care Team (Late st Contact Info) Description 01/07/2024 Telephone [facility] [address] [place], [place] [phone] Korin Aldridge ANP [address] [place] [address] Social History Tobacco Use Types Packs/Day Years [...] Description 12/17/2024 3:30 PM EDT Office Visit [facility] [address] [place] [address] Korin Aldridge ANP [address] [place] [address] documented as of this encounter Visit Diagnoses Not on filedocumented in this encounter Additional Health Concerns Assessment Noted Time PHQ-9 Depression Total Score: 5 05/03/20 23 10:07 AM EDT documented as of this encounter Care Teams Senior Technical Recruiter Relationship Specialty Start Date End Date Korin Aldridge ANP [address] [place] [phone] PCP - General Family Medicine 04/26/23 documented as of this encounter
--- OUTSIDE RECORDS SUMMARY | 2024-11-26 18:45 | XMS_ITS | Encounter Summary ---
Author Organization [employer] Address [address] [place] [address] Care Team Providers Care Auger Mill Operator Name Role Phone Korin Aldridge Primary Care Provider [phone] Encounter Details Date Type Department Care Team (Late st Contact Info) Description 12/19/2023 Telephone [facility] [address] [place], [place] [phone] Korin Aldridge ANP [address] [place] [address] Social History Tobacco Use Types Packs/Day Years [...] Description 12/17/2024 3:30 PM EDT Office Visit [facility] [address] [place] [address] Korin Aldridge ANP [address] [place] [address] documented as of this encounter Visit Diagnoses Not on filedocumented in this encounter Additional Health Concerns Assessment Noted Time PHQ-9 Depression Total Score: 5 05/03/20 23 10:07 AM EDT documented as of this encounter Care Teams Auger Mill Operator Relationship Specialty Start Date End Date Korin Aldirdge ANP [address] [place] [phone] PCP - General Family Medicine 04/26/23 documented as of this encounter
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
[2024-12-02 09:39] LABS: Anti Nuclear Antibody Screen NEGATIVE (NEGATIVE)
== END 2024-11-26 15:10 | disposition home or self-care (01) ==
LOC: HO.HHCL 15:09
PROVIDERS: Visit Provider Student in an Organized Health Care Education/Training Program
DX: M25.50 Pain in unspecified joint (principal)
CPT/HCPCS: 36415; 86038; 86431

== ENCOUNTER 2025-03-13 10:44 | Outpatient (REF) | payer MEDICAID, SELFPAY ==
[2025-03-13 13:02] LABS: MANUAL DIFF FLAG NO
[2025-03-13 13:22] LABS: Basophils Absolute Auto 0.1 X10*3/uL (0.0-0.2); Basophils Percent Auto 0.6 % (0-2); Eosinophils Absolute Auto 0.3 X10*3/uL (0.0-0.4); Eosinophils Percent Auto 3.8 % (0-4); Hematocrit 38.7 % (37.0-47.0); Imm Gran Abs Auto 0.03 X10*3/uL (0.00-0.03); Imm Gran Pct Auto 0.3 % (0.0-0.4); Lymphocytes Absolute Auto 2.3 X10*3/uL (1.2-4.9); Lymphocytes Percent Auto 27.1 % (20-40); Mean Corpuscular HGB Conc 33.6 g/dl (31.0-35.0); Mean Corpuscular Hemoglobin 29.3 pg (27.0-33.0); Mean Corpuscular Volume 87.4 fL (80.0-98.0); Mean Platelet Volume 11.4 fL (9.4-12.3); Monocytes Absolute Auto 0.6 X10*3/uL (0.1-1.2); Monocytes Percent Auto 6.8 % (2-11); Neutrophils Absolute Auto 5.3 x10*3/uL (2.0-8.3); Neutrophils Percent Auto 61.4 % (45-73); Platelet Count 318 X10*3/uL (160-400); Red Blood Count 4.43 X10*6/uL (4.20-5.50); Red Cell Distribution Width 12.4 % (11.0-16.0); White Blood Count 8.6 X10*3/uL (4.8-10.8)
[2025-03-13 13:26] LABS: Estimated Average Glucose 100 mg/dL; Hemoglobin A1c % 5.1 % (<6.0)
[2025-03-13 13:33] LABS: Alanine Aminotransferase 13 U/L (0-31); Albumin Level 4.1 g/dL (3.5-5.0); Alkaline Phosphatase 62 U/L (39-117); Anion Gap 11 (12-20); Aspartate Amino Transferase 20 U/L (5-31); Bilirubin Total 0.5 mg/dL (0.0-1.0); Blood Urea Nitrogen 19 mg/dL (9-16); C Reactive Protein 1.12 mg/dL (< or = 0.50); Calcium 8.9 mg/dL (8.4-10.2); Carbon Dioxide 23 mmol/L (22-29); Chloride 110 mmol/L (96-108); Cholesterol 167 mg/dL (<200); Estimated Glomerular Filt Rate > 60; Glucose Random 92 mg/dL (60-115); HDL Cholesterol 36 mg/dL (>40); LDL Cholesterol Calculated 102 mg/dL (<100); Potassium 3.8 mmol/L (3.3-5.1); Sodium 140 mmol/L (135-145); Total Protein 6.7 g/dL (6.5-8.0); Triglycerides 146 mg/dL (<150)
[2025-03-13 13:50] LABS: TSH reflex Free T4 2.78 uIU/mL (0.32-4.0)
[2025-03-13 14:16] LABS: Erythrocyte Sedimentation Rate 16 MM/HR (0-20)
[2025-03-18 13:48] LABS: Cyclic Citrullinated Peptide <16 UNITS
== END 2025-03-13 10:45 | disposition home or self-care (01) ==
LOC: HO.HHCL 10:44
PROVIDERS: Visit Provider Nurse Practitioner Primary Care
DX: Z00.00 Encounter for general adult medical examination without abnormal findings (principal); Z13.220 Encounter for screening for lipoid disorders; M25.50 Pain in unspecified joint
CPT/HCPCS: 36415; 80053; 80061; 83036; 84443; 85025; 85652; 86140; 86200

== ENCOUNTER 2025-04-08 14:14 | Outpatient (REF) | payer MEDICAID, SELFPAY ==
--- OUTSIDE RECORDS SUMMARY | 2025-04-08 14:52 | XMS_ITS | Encounter Summary ---
Author Organization [employer] Address [address] [facility] 7[address] [place] [address] Care Team Providers Care Promotions Assistant Name Role Phone Korin Aldridge Primary Care Provider [phone] Reason for Visit * Reason Onset Date Comments Referral 03/24/2025 Encounter Details Date Type Department Care Team ([facility] st Contact Info) Description 03/24/2025 Telephone [facility] [address] [place] [address] Korin Aldridge ANP [address] [place] [address] Referral Social History Tobacco Use Types Packs/Day Years Used Date Smoking Tobacco: Never Passive Smoke Exposure: Current Smokeless Tobacco: Never Alcohol Use Standard Drinks/Week Comments Never 0 (1 standard drink = 0.6 oz pur e alcohol) Depression Answer Date Recorded Patient Health Questionnaire-9 Score 03/20/2025 Patient Health Questionnaire-9 Score 20 03/20/2025 Last PHQ-9: Questionnaire Data Not on file 0 03/20/2025 Housing Stability Answer Date Recorded What is your housing situation today? I have alex lee 03/20/[address] you li ve. Do you have problems with any of the following? None of the above 03/20/2025 Food Insecurity Answer Date Recorded Within the past 12 months, y ou worried that your food would run out before you got money to buy more: Never True 03/20/2025 Within the past 12 months,th e food you bought just didn't last and you didn't have enough money to get more: Never True Transportation Answer Date Recorded In the past 12 months, has l ack of transportation kept you from medical appts, meetings, work or from getting things needed for daily living? No 03/20/2025 Utilities Answer Date Recorded In the past 12 months, has t he electric, gas, oil or water company threatened to shut off services in your home? No 03/20/2025 Depression Answer Date Recorded Patient Health Questionnaire-2 Score 6 03/20/2025 Internet Access Answer Date Recorded Internet Access Q1 Yes 03/20/2025 Internet Access Q2 Not on file 03/20/2025 Comments No Sex and Gender Information Value Date Recorded Sex Assigned at Female 07/31/2022 10:19 AM EDT Legal Sex Female 10:19 AM EDT Gender Identity Female 07/31/2022 10:19 AM EDT Sexual Orientation Straight 07/31/2022 10 :19 AM EDT documented as of this encounter Miscellaneous Notes * Telephone Encounter - Laurent Martin - 03/24/2025 1:42 PM EDT Tc from pt requesting referral for rheumatology as she states has signs for arthritis. documented in this encounter Plan of Treatment Upcoming Encounters Date Type Department Care Team (Late st Contact Info) Description 06/03/2025 3:45 PM EDT Office Visit [facility] [address] [place] [address] Korin Aldridge ANP [address] [place] [address] documented as of this encounter Visit Diagnoses Not on filedocumented in this encounter Additional Health Concerns Assessment Noted Time PHQ-9 Depression Total Score: 20 025 1:19 PM EDT documented as of this encounter Care Teams Promotions Assistant Relationship Specialty Start Date End Date Korin Aldridge ANP [address] [place] [address] PCP - General Family Medicine 04/26/23 documented as of this encounter
== END 2025-04-08 14:15 | disposition home or self-care (01) ==
LOC: HO.MAMMO 14:14
PROVIDERS: PCP Nurse Practitioner Primary Care; Visit Provider Nurse Practitioner Primary Care
DX: Z12.31 Encounter for screening mammogram for malignant neoplasm of breast (principal)
CPT/HCPCS: 77063; 77067

== ENCOUNTER → 2025-04-08 14:15 | Outpatient (BNV) | payer MEDICAID, SELFPAY | PROVIDERS: PCP Nurse Practitioner Primary Care; Visit Provider Internal Medicine | DX: Z12.31 Encounter for screening mammogram for malignant neoplasm of breast (principal) | CPT/HCPCS: 77063; 77067 ==

== ENCOUNTER 2025-05-24 11:29 | Emergency (ER) | payer MEDICAID, SELFPAY ==
--- NOTE | ~2025-05-24 | XR_ITS ---
CLINICAL HISTORY: trauma 5 view right knee Comparison: None provided Findings: Bones intact. No dislocations. No significant loss of joint space, osteophytes, or erosions. No joint effusion. No radiopaque foreign body. IMPRESSION: 1. No acute findings. This document has been electronically signed by: Keyur Alvarado MD on 05/24/2025 12:46:44
--- NOTE | ~2025-05-24 | XR_ITS ---
CLINICAL HISTORY: trauma 3 view right ankle Comparison: None provided Findings: No acute fractures. Ankle mortise intact. No significant arthritic change or erosions. Small enthesophyte at the insertion of the Achilles tendon on the posterior calcaneus. No ankle effusion. No radiopaque foreign body. IMPRESSION: 1. No acute findings. This document has been electronically signed by: Keyur Alvarado MD on 05/24/2025 12:47:53
--- NOTE | ~2025-05-24 | US_ITS ---
CLINICAL HISTORY: r o achilles tendon rupture, pain injury US right lower extremity nonvascular Comparison: None Findings: Sonographic evaluation in the area of clinical concern right mid calf medially demonstrates a probable fluid collection at the area of bruising may be intramuscular in location. No hyperemia to suggest an infectious component. This may be at the level of the myotendinous junction of the Achilles tendon. Impression: Fluid collection deep to the subcutaneous soft tissues near or within the muscle right mid calf medially possibly at the level of the myotendinous junction of the Achilles tendon. This may be posttraumatic tear. No hyperemia on color Doppler to suggest an infectious component. Follow-up with MRI. This document has been electronically signed by: Amando Vivar MD on 05/24/2025 16:44:24
[2025-05-24 12:01] VITALS: BP 118/92; PULSE 99; RESP 18; TEMP 36.8; O2SAT 100; BMI 40.2
--- NOTE | 2025-05-24 12:02 | ED.GENADULT ---
HPI - General Adult General Chief complaint: Extremity Injury, Lower Stated complaint: Fall down stairs Time Seen by Provider: 05/24/25 13:05 Source: patient Mode of arrival: ambulatory Limitations: no limitations History of Present Illness ED Provider: Filomena Samaniego APRN HPI narrative: This is a 44-year-old female who presents to the ER with complaints of right lower extremity pain for 1 week. Patient reports she was walking up the stairs and she stopped on the stair with the front part of her foot and felt immediate pain in her right lower extremity. Over the last week the pain has increased and she now has swelling and bruising. She denies any associated numbness or tingling. Related Data Previous Rx's ?Medication ?Instructions ?Recorded dicyclomine 20 mg tablet 20 mg PO TID PRN abdominal pain 08/29/23 #20 tabs lidocaine 5 % topical patch 2 patch topical DAILY #30 ea 01/27/24 (Lidoderm) acetaminophen 650 mg 1,300 mg (2 x 650 mg) PO Q12H PRN 03/07/24 tablet,extended release (Arthritis pain #120 tabs Pain Relief (acetaminophen) ER) fluconazole 150 mg tablet 150 mg PO ONCE personal 1 day #1 06/27/24 tab back brace #1 ea 07/04/24 diclofenac potassium 50 mg tablet 50 mg PO BID pain 30 days #60 tabs 07/04/24 amitriptyline 10 mg tablet 10 mg PO BEDTIME pain 30 days #30 10/16/24 tabs oxycodone 5 mg tablet 5 mg PO Q8H PRN pain #12 tabs 05/24/25 Allergies Allergy/AdvReac Type Severity Reaction Status Date / Time ketorolac (From TORADOL) Allergy Severe HOTNESS Verified 05/24/25 12:05 Review of Systems Review of Systems: Yes all other systems are reviewed and are negative Constitutional: Constitutional: Reports no additional constitutional complaints, Denies body ache(s), Denies chills, Denies fever(s), Denies headache(s) and Denies weakness Eyes: Eyes: Reports no additional eye complaints and Denies change in vision ENT: Reports system reviewed and no additional complaints, except as documented, Denies dizziness, Denies headache(s), Denies nasal congestion, Denies nasal discharge and Denies neck pain Cardiovascular: Cardiovascular: Reports no additional cardiovascular complaints, Denies chest pain, Reports leg edema and Denies dyspnea Respiratory: Respiratory: Reports no additional respiratory complaints, Denies cough and Denies dyspnea Gastrointestinal: Gastrointestinal: Reports no additional gastrointestinal complaints, Denies abdominal pain, Denies diarrhea, Denies nausea and Denies vomiting Genitourinary: Genitourinary: Reports no additional female genitourinary complaints and Denies urinary incontinence Musculoskeletal: Musculoskeletal: Reports no additional musculoskeletal complaints, Denies back pain, Reports arthralgias, Denies joint swelling, Denies neck pain, Denies numbness and Denies tingling Integumentary/Breasts: Skin/Breast: Reports system reviewed and no additional complaints, except as docu and Denies rash Neurologic: Reports system reviewed and no additional complaints, except as documented, Denies Abnormal speech present, Denies dizziness, Denies headache(s), Denies numbness, Denies tingling and Denies weakness PMFSH Past Medical History Attestation statement: The following information was validated with the patient. 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 H/O LEEP History of cone biopsy of cervix Hx of tubal ligation Family History Family History Maternal Aunt History of breast cancer Social History Social History Alcohol intake: former Patient Tobacco Use Status: Never used Tobacco Smoked in Last 30 Days: No Use of substances other than those prescribed or required for medical reasons: No Advance Directives: No Advance Directives Information Provided: No Do you have a plan to hurt others: No Plan 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 Sexual orientation: Straight/Heterosexual Gender identity: Female Physical Exam ED Vital Signs: Vital Signs - 24 hr 05/24/25 12:01 05/24/25 14:30 05/24/25 16:22 Temperature 98.2 F Pulse Rate 99 84 88 Respiratory Rate 18 18 18 Blood Pressure 118/92 H 108/45 L 100/47 L Pulse Oximetry 100 99 100 Oxygen Delivery Method Room Air Room Air 05/24/25 17:26 Temperature 98 F Pulse Rate 88 Respiratory Rate 18 Blood Pressure 100/47 L Pulse Oximetry 100 Oxygen Delivery Method Room Air BMI result Body Mass Index 40.2 Const General: cooperative, healthy appearing, comfortable and no acute distress Orientation/consciousness: patient oriented x3 Limitations: no limitations HENMT Head: Yes normal to inspection Ears: hearing grossly normal bilaterally General nose exam: Normal external nose present Face and sinus: Yes normal facial exam Mouth: Normal oral and palatal mucosa present Throat: Yes posterior oropharynx normal Eyes General: appearance normal, both eyes and all related structures Pupils: Equal, round and reactive pupils present Neck Neck: Yes normal visual inspection Chest Chest palpation & inspection: normal inspection of the chest Resp Effort & Inspection: normal respiratory effort Auscultation: clear to auscultation bilaterally Cardio Rate: regular rate Rhythm: regular rhythm Peripheral pulses: Peripheral pulses 2+ throughout GI Inspection: Yes normal to inspection Palpation (GI): Soft to palpation and nontender Auscultation: normal bowel sounds Back/Spine/Pelvis Thoracic/Lumbar Spine: thoracic and lumbar spine normal to inspection Skin General skin exam: no rashes or lesions noted Neuro General: patient oriented x3, no focal motor deficits and normal sensation to monofilament Cranial nerves: Yes Equal, round and reactive pupils present Cognition (Neuro): normal cognition Speech: No Abnormal speech present Gait exam (Neuro): Normal gait present Motor exam (neuro): 5/5 motor strength present throughout Extrem Other: There is bruising and swelling noted to the right lower extremity. All compartments are soft and compressible although painful. CMS is intact distally. Positive Rankin test with swelling and pain on palpation over the posterior ankle Course Course Course Narrative: RME, this is a rapid medical exam performed by Mick Em please refer to primary provider for complete H&P- 44-year-old female presents for evaluation of right leg pain. She reports falling while walking up the stairs 5 days ago. She has pain from her knee down to her ankle with bruising. Plan for x-ray of the right knee and ankle. Medications Administered Discontinued Medications Generic Name Dose Route Start Last Admin Trade Name Freq PRN Reason Stop Dose Admin Acetaminophen 975 mg 05/24/25 15:31 05/24/25 15:35 Acetaminophen 325 Mg Tablet PO 05/24/25 15:32 975 mg ONCE ONE Administration Oxycodone HCl 5 mg 05/24/25 15:31 05/24/25 15:35 Oxycodone Hcl Immed Release 5 Mg Tablet PO 05/24/25 15:32 5 mg ONCE ONE Administration Procedures Orthopedic Splinting/Casting Injury #1: Lower Extremity Injury Location: lower leg Lower Extremity Immobilizer: posterior splint (Plantar flexion) Other Orthopedic Equipment: crutches Medical Decision Making Medical Decision Making MDM Narrative: This is a 44-year-old female who presents to the ER with complaints of right lower extremity pain for 1 week. Patient reports she was walking up the stairs and she stopped on the stair with the front part of her foot and felt immediate pain in her right lower extremity. Over the last week the pain has increased and she now has swelling and bruising. She denies any associated numbness or tingling. There is bruising and swelling noted to the right lower extremity. All compartments are soft and compressible although painful. CMS is intact distally. Positive Rankin test with swelling and pain on palpation over the posterior ankle Will obtain x-rays, US, provide analgesia Differential Diagnosis Differential Diagnoses: The differential diagnosis associated with the presentation includes achilles tendon rupture, fracture, sprain, strain Low suspician for complex fracture, dislocation or vascular injury Admission/Observation Consideration of admission/observation: Escalation of care including admission/observation considered Low suspician for complex fracture, dislocation or vascular injury requiring advanced imaging, urgent orthopedic consultation and or admission Consult Healthcare Provider Management of the patient was discussed with: Social Services Manager I spoke to Orthopedics who recommended placing the patient in a posterior splint in plantar flexion Independent Interpretation I performed an independent interpretation of an: Plain X-Ray and Ultrasound Interpretation: I independently viewed the x-ray and the ultrasound agree with the radiology report Radiology Impression Discussion of test interpretation with radiology: I have reviewed the radiologist's reading. Radiologist Impression: [address] [id number] Ultrasound Report Signed Patient: Lorin Cedillo MR#: [id number] : 1980 Acct:[id number] Age/Sex: 44 / F ADM Date: 05/24/25 Loc: HO.ED Attending Dr: Ordering Physician: Filomena Samaniego NP Date of Service: 05/24/25 Procedure(s): US Extremity Nonvas Limited RT Accession Number(s): [id number] cc: Filomena Samaniego NP; HELGA BLOOM POUND ATTENDANT~ CLINICAL HISTORY: r o achilles tendon rupture, pain injury US right lower extremity nonvascular Comparison: None Findings: Sonographic evaluation in the area of clinical concern right mid calf medially demonstrates a probable fluid collection at the area of bruising may be intramuscular in location. No hyperemia to suggest an infectious component. This may be at the level of the myotendinous junction of the Achilles tendon. Impression: Fluid collection deep to the subcutaneous soft tissues near or within the muscle right mid calf medially possibly at the level of the myotendinous junction of the Achilles tendon. This may be posttraumatic tear. No hyperemia on color Doppler to suggest an infectious component. Follow-up with MRI. This document has been electronically signed by: Amando Vivar MD on 05/24/2025 16:44:24 [place] [address] XRay Report Signed Patient: Lorin Cedillo MR#: [id number] : 1980 Acct:[id number] Age/Sex: 44 / F ADM Date: 05/24/25 Loc: .ED Attending Dr: Ordering Physician: Russell Em Date of Service: 05/24/25 Procedure(s): XR ankle RT min 3V Accession Number(s): [id number] cc: Russell Em; HELGA BLOOM NP~ CLINICAL HISTORY: trauma 3 view right ankle Comparison: None provided Findings: No acute fractures. Ankle mortise intact. No significant arthritic change or erosions. Small enthesophyte at the insertion of the Achilles tendon on the posterior calcaneus. No ankle effusion. No radiopaque foreign body. IMPRESSION: 1. No acute findings. This document has been electronically signed by: Keyur Alvarado MD on 05/24/2025 12:47:[address] [address] XRay Report Signed Patient: Lorin Cedillo MR#: [id number] : 1980 Acct:[id number] Age/Sex: 44 / F ADM Date: 05/24/25 Loc: HO.ED Attending Dr: Ordering Physician: Russell Em Date of Service: 05/24/25 Procedure(s): XR knee RT 4V Accession Number(s): [id number] cc: Russell Em; HELGA BLOOM POUND ATTENDANT~ CLINICAL HISTORY: trauma 5 view right knee Comparison: None provided Findings: Bones intact. No dislocations. No significant loss of joint space, osteophytes, or erosions. No joint effusion. No radiopaque foreign body. IMPRESSION: 1. No acute findings. This document has been electronically signed by: Keyur Alvarado MD on 05/24/2025 12:46:44 Discharge Plan Discharge Clinical Impression: Achilles rupture, right Patient Disposition: Home, Self-Care Instructions: Crutch Instructions (ED), Achilles Tendon Rupture (ED), P.R.I.C.E. Treatment (ED) Additional Instructions: Rest, ice, elevation Do not get the splint wet Call orthopedics tomorrow to follow-up Prescriptions: New oxycodone 5 mg tablet 5 mg PO Q8H PRN (Reason: pain) Qty: 12 0RF Rx Instructions: Partial Fill upon patient request. No Action fluconazole 150 mg tablet 150 mg PO ONCE 1 Days Qty: 1 0RF amitriptyline 10 mg tablet 10 mg PO BEDTIME 30 Days Qty: 30 3RF lidocaine [Lidoderm] 5 % adhesive patch,medicated 2 patch topical DAILY Qty: 30 0RF Rx Instructions: leave on most painful area for up to 12 hrs dicyclomine 20 mg tablet 20 mg PO TID PRN (Reason: abdominal pain) Qty: 20 0RF acetaminophen [Arthritis Pain Relief (acetam)] 650 mg tablet extended release 1,300 mg PO Q12H PRN (Reason: pain) Qty: 120 1RF diclofenac potassium 50 mg tablet 50 mg PO BID 30 Days Qty: 60 0RF Rx Instructions: Take it with food and full glass of water (DME) back brace [facility] See Rx Instructions .Route Qty: 1 0RF Rx Instructions: As directed Referrals: [facility] [Provider Group] Interventions: ED Discharge Assessment Last Done: 05/24/25 17:26 Discharge Date/Time: 05/24/25 17:40 Print Language: [place]
[2025-05-24 14:30] VITALS: BP 108/45; PULSE 84; RESP 18; O2SAT 99
[2025-05-24] MEDS: oxyCODONE HCl Immed Release 5 MG TABLET PO (15:35)
[2025-05-24 16:22] VITALS: BP 100/47; PULSE 88; RESP 18; O2SAT 100
[2025-05-24 17:26] VITALS: BP 100/47; PULSE 88; RESP 18; TEMP 36.6; O2SAT 100
== END 2025-05-24 17:40 | disposition home or self-care (01) ==
PROVIDERS: Emergency Provider Emergency Medicine; PCP Nurse Practitioner Primary Care
DX: S86.011A Strain of right Achilles tendon, initial encounter (principal); M79.604 Pain in right leg; W10.9XXA Fall (on) (from) unspecified stairs and steps, initial encounter; Y93.9 Activity, unspecified; Y92.9 Unspecified place or not applicable; Y99.9 Unspecified external cause status
CPT/HCPCS: 29515; 73564; 73610; 76882; 99284

== ENCOUNTER → 2025-05-24 12:03 | Outpatient (BNV) | payer MEDICAID, SELFPAY | PROVIDERS: PCP Nurse Practitioner Primary Care; Visit Provider Radiology Diagnostic Radiology | DX: M79.661 Pain in right lower leg (principal); M25.571 Pain in right ankle and joints of right foot; M77.31 Calcaneal spur, right foot; X50.9XXA Other and unspecified overexertion or strenuous movements or postures, initial encounter | CPT/HCPCS: 73564; 73610; 76882 ==

== ENCOUNTER 2025-05-28 08:29 | Outpatient (REF) | payer MEDICAID, SELFPAY ==
--- NOTE | ~2025-05-28 | XR_ITS ---
EXAMINATION: XR ANKLE 3 OR MORE VIEWS RIGHT HISTORY: M25.579 - Pain in unspecified ankle and joints of unspecified foot COMPARISON: Comparison is made with the prior examination dated 05/24/2025. FINDINGS: Three views of the right ankle are submitted. Osseous mineralization is normal. There is no fracture or dislocation. The joint spaces are preserved. Again seen is a small calcaneal spur at the insertion of the Achilles tendon.. The soft tissues are unremarkable. XR/XR ankle RT min 3V IMPRESSION: Small calcaneal spur. Otherwise unremarkable examination of the right ankle. Electronically signed by: Rudy Odonnell MD 05/28/2025 02:20 PM EDT
--- OUTSIDE RECORDS SUMMARY | 2025-05-28 09:07 | XMS_ITS | Encounter Summary ---
Author Organization [employer] Address [address] [place] [address] Care Team Providers Care Composite Bond Technician Name Role Phone Korin Aldridge Primary Care Provider [phone] Encounter Details Date Type Department Care Team (Late st Contact Info) Description 01/07/2024 Telephone [facility] [address] [place] [address] Korin Aldridge ANP [address] [place] [address] Social History Tobacco Use Types Packs/Day Years [...] Description 06/03/2025 3:45 PM EDT Office Visit [facility] [address] [place] [address] Korin Aldridge ANP [address] [place] [address] documented as of this encounter Visit Diagnoses Not on filedocumented in this encounter Additional Health Concerns Assessment Noted Time PHQ-9 Depression Total Score: 5 05/03/20 23 10:07 AM EDT documented as of this encounter Care Teams Composite Bond Technician Relationship Specialty Start Date End Date Korin Aldridge ANP [address] [place] [id number] PCP - General Family Medicine 04/26/23 documented as of this encounter
--- OUTSIDE RECORDS SUMMARY | 2025-05-28 09:07 | XMS_ITS | Encounter Summary ---
Author Organization [employer] Address [address] [facility] [address] [place] [address] Care Team Providers Care Correspondence Specialist Name Role Phone Korin Aldridge Primary Care Provider [phone] Reason for Visit * Reason Onset Date Comments Referral 03/24/2025 Encounter Details Date Type Department Care Team ([facility] st Contact Info) Description 03/24/2025 Telephone [facility] MED[facility]INE [address] [place] [address] Korin Aldridge ANP [address] [place] [address] Referral Social History Tobacco Use Types Packs/Day [...] 3:45 PM EDT Office Visit [facility]INE [address] [place] [address] Korin Aldridge ANP [address] [place] [address] documented as of this encounter Visit Diagnoses Not on filedocumented in this encounter Additional Health Concerns Assessment Noted Time PHQ-9 Depression Total Score: 20 025 1:19 PM EDT documented as of this encounter Care Teams Correspondence Specialist Relationship Specialty Start Date End Date Korin Aldridge ANP [address] [place] [address] PCP - General Family Medicine 04/26/23 documented as of this encounter
--- OUTSIDE RECORDS SUMMARY | 2025-05-28 09:07 | XMS_ITS | Encounter Summary ---
Author Organization [employer] Address [address] [place] [address] Care Team Providers Care Formulation Chemist Name Role Phone Helga Bloom Primary Care Provider [phone] Encounter Details Date Type Department Care Team (Late st Contact Info) Description 05/24/2025 Orders Only [facility] External Provider, [facility] Social History Tobacco Use Types Packs/Day Years Used Date Smoking Tobacco: Never Passive Smoke Exposure: Current Smokeless Tobacco: Never Alcohol Use Standard Drinks/Week Comments Never 0 (1 standard drink = 0.6 oz pur e alcohol) Depression Answer Date Recorded Patient Health Questionnaire-9 Score 20 03/20/2025 Patient Health Questionnaire-9 Score 20 03/20/2025 [...] Description 06/03/2025 3:45 PM EDT Office Visit [facility] [address] [place], [place] [phone] Helga Bloom ANP [address] [place], [place] [phone] documented as of this encounter Procedures Procedure Name Priority Date/Time Associated Diagnosis Comments US EXTREMITY NON-VASCULAR RIGHT LIMITED Routine 05/24/2025 4:44 PM EDT XR ANKLE 3+ VIEWS RIGHT Routine 05/24/2025 12:47 PM EDT XR KNEE 4+ VIEWS RIGHT Routine 05/24/2025 12:46 PM EDT documented in this encounter Results * US EXTREMITY NON-VASCULAR RIGHT LIMITED (05/24/2025 4:44 PM EDT) Anatomical Region Laterality Modality Ultrasound 05/24/2025 4:44 PM EDT Narrative 05/24/2025 4:45 PM EDT [facility] [address] [place] [id number] Ultrasound Report Signed Patient: Lorin Cedillo MR#: [id number] 142 : 1980 Acct:[id number] Age/Sex: 44 / F ADM Date: 05/24/25 Loc: .ED Attending Dr: Ordering Physician: Filomena Samaniego NP Date of Service: 05/24/25 Procedure(s): US Extremity Nonvas Limited RT Accession Number(s): [id number] cc: Filomena Samaniego NP; HELGA BLOOM NP CLINICAL HISTORY: r o achilles tendon rupture, pain injury US right lower extremity nonvascular Comparison: None Findings: Sonographic evaluation in the area of clinical concern right mid calf medially demonstrates a probable fluid collection at the area of bruising may be intramuscular in location. No hyperemia to suggest an infectious component. This may be at the level of the myotendinous junction of the Achilles tendon. Impression: Fluid collection deep to the subcutaneous soft tissues near or within the muscle right mid calf medially possibly at the level of the myotendinous junction of the Achilles tendon. This may be posttraumatic tear. No hyperemia on color Doppler to suggest an infectious component. Follow-up with MRI. This document has been electronically signed by: Amando Vivar MD on 05/24/2025 16:44:24 Dictated By: Amando Vivar MD Signed By: <Electronically signed by Amando Vivar MD in OV> 05/24/25 1645 DD/ 1644 TD/TT: 05/24/25 1644 Windows Technical Specialist: Procedure Note Donotuseinterpreter, Image - 05/24/2025 [place] [address] Ultrasound Report Signed Patient: Lorin Cedillo MMR#: [id number] 142 : 1980Acct:[id number] Age/Sex: 44 / FADM Date: 05/24/25 Loc: HO.ED Attending Dr: Ordering Physician: Filomena Samaniego NP Date of Service: 05/24/25 Procedure(s): US Extremity Nonvas Limited RT Accession Number(s): [id number] cc: Filomena Samaniego NP; HELGA BLOOM NP CLINICAL HISTORY: r o achilles tendon rupture, pain injury US right lower extremity nonvascular Comparison: None Findings: Sonographic evaluation in the area of clinical concern right mid calf medially demonstrates a probable fluid collection at the area of bruising may be intramuscular in location. No hyperemia to suggest an infectious component. This may be at the level of the myotendinous junction of the Achilles tendon. Impression: Fluid collection deep to the subcutaneous soft tissues near or within the muscle right mid calf medially possibly at the level of the myotendinous junction of the Achilles tendon. This may be posttraumatic tear. No hyperemia on color Doppler to suggest an infectious component. Follow-up with MRI. This document has been electronically signed by: Amando Vivar MD on 05/24/2025 16:44:24 Dictated By: Amando Vivar MD Signed By: <Electronically signed by Amando Vivar MD in OV> 05/24/25 1645 DD/ 164 TD/TT: 05/24/25 164 Windows Technical Specialist: us [facility] External Provider IMG US PROCEDURES Edited Result - Final * XR Ankle 3+ Views Right (05/24/2025 12:47 PM EDT) Anatomical Region Laterality Modality Lower Extremities, Ankle Right Radiogr aphic Imaging 05/24/2025 12:4 7 PM EDT Narrative 05/24/2025 12:48 PM EDT [place] [address] XRay Report Signed Patient: Lorin Cedillo MR#: [id number] 142 : 1980 Acct:[id number] Age/Sex: 44 / F ADM Date: 05/24/25 Loc: .ED Attending Dr: Ordering Physician: Russell Em Date of Service: 05/24/25 Procedure(s): XR ankle RT min 3V Accession Number(s): [id number] cc: Russell Em; HELGA BLOOM NP CLINICAL HISTORY: trauma 3 view right ankle Comparison: None provided Findings: No acute fractures. Ankle mortise intact. No significant arthritic change or erosions. Small enthesophyte at the insertion of the Achilles tendon on the posterior calcaneus. No ankle effusion. No radiopaque foreign body. IMPRESSION: 1. No acute findings. This document has been electronically signed by: Keyur Alvarado MD on 05/24/2025 12:47:53 Dictated By: Keyur Alvarado MD Signed By: <Electronically signed by Keyur Alvarado MD in OV> 05/24/25 1248 DD/ 1247 TD/TT: 05/24/251246 Windows Technical Specialist: Procedure Note Matthias, Eb - 05/24/[address] [address] XRay Report Signed Patient: Lorin Cedillo MMR#: [id number] 142 : 1980Acct:[id number] Age/Sex: 44 / FADM Date: 05/24/25 Loc: HO.ED Attending Dr: Ordering Physician: Russell Em Date of Service: 05/24/25 Procedure(s): XR ankle RT min 3V Accession Number(s): [id number] cc: Russell Em; HELGA BLOOM NP CLINICAL HISTORY: trauma 3 view right ankle Comparison: None provided Findings: No acute fractures. Ankle mortise intact. No significant arthritic change or erosions. Small enthesophyte at the insertion of the Achilles tendon on the posterior calcaneus. No ankle effusion. No radiopaque foreign body. IMPRESSION: 1. No acute findings. This document has been electronically signed by: Keyur Alvarado MD on 05/24/2025 12:47:53 Dictated By: Keyur Alvarado MD Signed By: <Electronically signed by Keyur Alvarado MD in OV> 05/24/25 1248 DD/ 124 TD/TT: 05/24/251246 Windows Technical Specialist: [facility] External Provider IMG XR PROCEDURES Final Result * XR Knee 4+ Views Right (05/24/2025 12:46 PM EDT) Anatomical Region Laterality Modality Lower Extremities, Knee Right Radiogra phic Imaging 05/24/2025 12:4 6 PM EDT Narrative 05/24/2025 12:47 PM EDT [address] [address] XRay Report Signed Patient: Lorin Cedillo MR#: [id number] 142 : 1980 Acct:[id number] Age/Sex: 44 / F ADM Date: 05/24/25 Loc: HO.ED Attending Dr: Ordering Physician: Russell Em Date of Service: 05/24/25 Procedure(s): XR knee RT 4V Accession Number(s): [id number] cc: Russell Em; HELGA BLOOM NP CLINICAL HISTORY: trauma 5 view right knee Comparison: None provided Findings: Bones intact. No dislocations. No significant loss of joint space, osteophytes, or erosions. No joint effusion. No radiopaque foreign body. IMPRESSION: 1. No acute findings. This document has been electronically signed by: Keyur Alvarado MD on 05/24/2025 12:46:44 Dictated By: Keyur Alvarado MD Signed By: <Electronically signed by Keyur Alvarado MD in OV> 05/24/25 1247 DD/ 1246 TD/TT: 05/24/25 1246 Windows Technical Specialist: Procedure Note Donotuseinterpreter, Image - 05/24/2025 [place] [address] XRay Report Signed Patient: Lorin Cedillo MMR#: [id number] 142 : 1980Acct:[id number] Age/Sex: 44 / FADM Date: 05/24/25 Loc: .ED Attending Dr: Ordering Physician: Russell Em Date of Service: 05/24/25 Procedure(s): XR knee RT 4V Accession Number(s): [id number] cc: Russell Em; HELGA BLOOM NP CLINICAL HISTORY: trauma 5 view right knee Comparison: None provided Findings: Bones intact. No dislocations. No significant loss of joint space, osteophytes, or erosions. No joint effusion. No radiopaque foreign body. IMPRESSION: 1. No acute findings. This document has been electronically signed by: Keyur Alvarado MD on 05/24/2025 12:46:44 Dictated By: Keyur Alvarado MD Signed By: <Electronically signed by Keyur Alvarado MD in OV> 05/24/25 1247 DD/ 1246 TD/TT: 05/24/25 1246 Windows Technical Specialist: [facility] External Provider IMG XR PROCEDURES Final Result documented in this encounter Visit Diagnoses Not on filedocumented in this encounter Additional Health Concerns Assessment Noted Time PHQ-9 Depression Total Score: 20 025 1:19 PM EDT documented as of this encounter Care Teams Formulation Chemist Relationship Specialty Start Date End Date Helga Bloom ANP [address] [place] [address] PCP - General Family Medicine 04/26/23 documented as of this encounter
--- OUTSIDE RECORDS SUMMARY | 2025-05-28 09:07 | XMS_ITS | Encounter Summary ---
Author Organization [employer] Address [address] [place] [address] Care Team Providers Care Drier Helper Name Role Phone Korin Aldridge Primary Care Provider [phone] Encounter Details Date Type Department Care Team (Latest Contact Info) Description 04/21/2025 Results Follow-Up [facility]ICINE [address] [place] [address] Korin Aldridge ANP [address] [place] [address] BI Mammogram Screening Tomosynthesis Bilateral Social History Tobacco Use Types Packs/Day Years [...] as of this encounter Miscellaneous Notes * Result Encounter Note - ALMA Jiménez - 04/21/2025 5:25 PM EDT Spoke w/ pt, she will let us know if she does not hear from [facility] for add'l imaging. * Result Encounter Note - ALMA Jiménez - 04/21/2025 5:14 PM EDT Please follow, [id number] documented in this encounter Plan of Treatment Upcoming Encounters Date Type Department Care Team (Late st Contact Info) Description 06/03/2025 3:45 PM EDT Office Visit [facility] [address] [place] [address] Korin Aldridge ANP [address] [place] [address] documented as of this encounter Visit Diagnoses Not on filedocumented in this encounter Additional Health Concerns Assessment Noted Time PHQ-9 Depression Total Score: 20 025 1:19 PM EDT documented as of this encounter Care Teams Drier Helper Relationship Specialty Start Date End Date Korin Aldridge ANP [address] [place] [address] PCP - General Family Medicine 04/26/23 documented as of this encounter
--- OUTSIDE RECORDS SUMMARY | 2025-05-28 09:07 | XMS_ITS | Encounter Summary ---
Author Organization [employer] Address [address] [facility] [address] [place] [address] Care Team Providers Care Reinforcing Steel Erector Name Role Phone Korin Aldridge Primary Care Provider [phone] Encounter Details Date Type Department Care Team (Late st Contact Info) Description 12/19/2023 Telephone [facility] [address] [place] [address] Korin Aldridge ANP [address] [place] [address] Social History Tobacco Use Types Packs/Day Years [...] Description 06/03/2025 3:45 PM EDT Office Visit [facility] [address] [place] [address] Korin Aldridge ANP [address] [place] [address] documented as of this encounter Visit Diagnoses Not on filedocumented in this encounter Additional Health Concerns Assessment Noted Time PHQ-9 Depression Total Score: 5 05/03/20 23 10:07 AM EDT documented as of this encounter Care Teams Reinforcing Steel Erector Relationship Specialty Start Date End Date Korin Aldridge ANP [address] [place] [address] PCP - General Family Medicine 04/26/23 documented as of this encounter
--- OUTSIDE RECORDS SUMMARY | 2025-05-28 09:07 | XMS_ITS | Clinical Summary ---
Author Organization [employer] Address [address] [place] [address] Care Team Providers Care Legal Officer Name Role Phone Helga Bloom Primary Care Provider [phone] Allergies Active Allergy Reactions Criticality Noted Date Comments Ketorolac Tromethamine Other Medium 03/20/2024 Hot flashes, flushing; tolerates other NSAIDs Medications * This document contains information received from the source organization and may not represent a complete record from that organization. meloxicam (Mobic) 7.5 MG tablet Take 1 tablet (7.5 mg) by mouth 2 times daily. 60 tablet 11 5 11/26/19 Active Additional Information Patient not taking.Reported on 03/20/2025 Active Problems Problem Noted Date Diagnosed Date Rheumatoid factor positive 03/25/2025 Elevated C-reactive protein (CRP) 03/25/2025 Other specified anxiety disorders 03/04/2025 Assessment & Plan (03/05/2025 11:54 AM EDT): During IBH Consult Lorin presenting with difficulty controlling worry and anxiety/worry associated to restlessness and/or feeling keyed-up/On edge , difficulty concentrating and/or mind going blank , and irritability; for a period of 6-12 mo, for some symptoms and for most or all symptoms in the context of family issues. Pt experiences anxiety but don't meet the full criteria for specific anxiety/panic disorder. Triggers associated with complicated relationship with her daughter and worrying for her grandchildren. Pt receives positive support from her . Her medical condition exacerbates sxs. Stress due to family tension 02/03/2025 Adjustment disorder with anxious mood 12/30/2024 Assessment & Plan (02/04/2025 1:16 PM EDT): During IBH Consult Lorin presenting with excessive worry/anxiety, difficulty controlling worry, anxiety/worry associated to restlessness and/or feeling keyed-up/On edge , easily fatigued , difficulty concentrating and/or mind going blank , and irritability, and Fear ; for a period of 0-6 mo, for most or all symptoms in the context of family issues. Pt reported her current family situation is leading to an increase of her anxiety (pt described relationship with her adult daughter as complicated ). Family is one of Lorin's main values. Pt had a difficult time in the past setting up boundaries and communicate her emotions with others. Pt is aware and willing to express herself with her loved ones and set-up healthy personal boundaries. Pt will discuss medication management (PRN for anxiety) during next medical appt. Assessment & Plan (01/02/2025 2:52 PM EDT): During IBH Consult Lorin presenting with excessive worry/anxiety, difficulty controlling worry, anxiety/worry associated to restlessness and/or feeling keyed-up/On edge , easily fatigued , difficulty concentrating and/or mind going blank , irritability, and sleep disturbance difficulty falling asleep, Fear , and sense of dread ; for a period of 0-6 mo, for most or all symptoms in the context of family issues. Lorin reports family issues are triggering sxs described above. Her daughter and grandchild moved out of Lorin's house unexpectedly. Pt is having a difficult time adjusting to her everyday routine. Lorin is trying to keep her mind busy by doing home chores to avoid thinking about stressors. Pt will be referred for therapy services. clinician will provide additional support during next medical appointment. Lorin will practice grounding techniques when finding herself ruminating with thoughts. Class 2 obesity 02/27/2024 Lumbar back pain [...] dark room. Hx of MH services with [facility]. Has a sick dog that she might need to put him to sleep. Patient will benefit from Ind. Therapy. At this time Lorin Cedillo meets criteria for Visit Diagnoses: Problem List Items Addressed This Visit Other Depression, unspecified Patient ready to address current needs Yes Strengths include Lorin is willing to seek treatment PLAN: 1. Follow up with [facility]: Not recommended for follow-up 2. Patient goal is to engage in MH services 3. Behavioral Recommendations a. Ind. Therapy b. Use of coping skills c. [facility] contact number for support as needed. Backache 02/19/2012 Disorder of function of stomach 02/19/2012 Pain in joint involving lower leg 02/19/2012 Abdominal pain 02/19/2012 Posttraumatic stress disorder 02/19/2012 Encounters * This document contains information received from the source organization and may not represent a complete record from that organization. Date Type Department Care Team Description 05/24/2025 Orders Only [facility] External Provider, [facility] 04/22/[address] [address] Helga Bloom ANP 04/21/2025 Results Follow-Up [address] [address] Helga Bloom ANP BI Mammogram Screening Tomosynthesis Bilateral 03/24/[address] [address] Helga Bloom ANP Referral 03/20/2025 1:00 PM EDT Office Visit [address] [address] Helga Bloom ANP Depression, unspecified depression type (Primary Dx); Posttraumatic stress disorder; Polyarthralgia; Elevated C-reactive protein (CRP); Rheumatoid factor positive; Morning stiffness of joints 03/20/2025 Travel 03/18/[address] [address] Helga Bloom ANP Chart Prep 03/16/[address] [address] Helga Bloom ANP 03/16/2025 Results Follow-Up [address] [address] Helga Bloom ANP Lipid Panel, Standard, Hemoglobin A1c, Comprehensive Metabolic Panel, Additional followed-up results: 4 from Last 3 Months Immunizations Immunization Administration Dates Next Due Influenza, Split (incl. purified surface antigen ) 2012 Tdap 01/17/2017,2012 Social History Tobacco Use Types Packs/Day Years Used Date Smoking Tobacco: Never Passive Smoke Exposure: Current Smokeless Tobacco: Never Tobacco Cessation:Counseling Given: Not Answered Alcohol Use Standard Drinks/Week Comments Never 0 [...] Sign Reading Time Taken Comments Blood Pressure 100/80 03/20/2025 1:16 PM EDT Pulse 86 03/20/2025 1:16 PM EDT Temperature 36.4 C (97.5 F) 03/20/2025 1:16 PM EDT Respiratory Rate 17 03/20/2025 1:16 PM EDT Oxygen Saturation 98% 12/17/2024 3:34 PM EDT Inhaled Oxygen Concentration - - Weight 98.5 kg (217 lb 2 oz) 03/20/2025 1:16 PM EDT Height 154.9 cm (5' 1 ) 03/20/2025 1:16 PM EDT Body Mass Index 41.03 03/20/2025 1:16 PM EDT Plan of Treatment Upcoming Encounters Date Type Department Care Team (Late st Contact Info) Description 06/03/2025 3:45 PM EDT Office Visit [facility] [address], [place] [phone] Helga Bloom ANP [address], [place] [phone] Health Maintenance Due Date Last Done Comments Family Planning (PISQ) 1995 HPV Vaccines (1 - 3-dose series) 1995 Hepatitis B Vaccines (1 of 3 - 19+ 3-dose series) 1999 Diagnostic Breast Imaging 04/22/2025 Influenza Vaccine (#1) 2025 2012 Pap Smear 08/31/2025 08/31/2022 Depression Monitoring 09/19/2025 03/20/2025 , 03/20/2025 COVID-19 Vaccine (1 - 2023-2 5 season) 2025 Postponed from 06/01 (Patient Refused) Alcohol/Substance Use Screening 03/20/2026 03/20/2025 Disability Screening 03/20/2026 03/20/2025 SDOH Screening 03/20/2026 03/20/2025 Tobacco Screening 03/20/2026 03/20/2025 DTaP/Tdap/Td Vaccines (3 - T d or Tdap) 01/17/2027 01/17/2017, 2012 Cervical Cancer Screening 08/31/2027 HPV/Cotest 08/31/2027 08/31/2022, 01/24/2022, 01/24/2022 Lipid Panel 03/13/2030 03/13/2025, 11/01/2021 Zoster Vaccines (1 of 2) 2030 RSV [...] patient's age to complete this topic Meningococcal B Vaccine Aged Out No l onger eligible based on patient's age to complete this topic Meningococcal Vaccine Aged Out No jeff aquiles eligible based on patient's age to complete this topic Pneumococcal Vaccine: Pediatrics (0 to 5 Years) and At-Risk Patients (6 to 49) Years Aged Out No longer eligible b ased [...] EDT XR KNEE 4+ VIEWS RIGHT Routine 12:46 PM EDT BI MAMMOGRAM SCREENING TOMOSYNTHESIS BILATERAL Routine 04/08/2025 2:25 PM EDT CBC WITH AUTO DIFFERENTIAL Routine 03/13/2025 10:50 AM EDT Polyarthralgia C-REACTIVE PROTEIN Routine 03/13/2025 10 :50 AM EDT Polyarthralgia SED RATE BY MODIFIED WESTERGREN Routine 03/13/2025 10:50 AM EDT Polyarthralgia CYCLIC CITRULLINATED PEPTIDE (CCP) AB (IGG) Routine 03/13/2025 10:50 AM EDT Polyarthralgia TSH W/REFLEX TO FT4 Routine 03/13/2025 1 0:50 AM EDT Polyarthralgia COMPREHENSIVE METABOLIC PANEL Routine 03/13/2025 10:50 AM EDT Polyarthralgia HEMOGLOBIN A1C Routine 03/13/2025 10:50 AM EDT Healthcare maintenance LIPID PANEL, STANDARD Routine 03/13/2025 10:50 AM EDT Lipid screening HPV MRNA E6/E7 REFLEX TO HPV 16, 18/45 Routine 08/31/2022 10:32 AM EST PAP SMEAR Routine 08/31/2022 10:32 AM EST ZZZ HISTORICAL HEPATITIS C AB W/REFL TO HCV RNA, QN, PCR Routine 11/01/2021 2:36 PM EST HIV 1/2 ANTIGEN/ANTIBODY, FOURTH GENERATION W/RFL Routine 11/01/2021 2:36 PM EST from Last 3 Months or Most Recently Relevant to Health Maintenance Results * US EXTREMITY NON-VASCULAR RIGHT LIMITED (05/24/2025 4:44 PM EDT) Anatomical Region Laterality Modality Ultrasound 05/24/2025 4:44 PM EDT Narrative 05/24/2025 4:45 PM EDT [place] [address] Ultrasound Report Signed Patient: Lorin Cedillo MR#: [id number] 142 : 1980 Acct:[id number] Age/Sex: 44 / F ADM Date: 05/24/25 Loc: .ED Attending Dr: Ordering Physician: Filomena Samaniego NP Date of Service: 05/24/25 Procedure(s): US Extremity Nonvas Limited RT Accession Number(s): [id number] cc: Filomena Samaniego NP; HELGA BLOOM NP [...] OV> 05/24/25 1645 DD/ 164 TD/TT: 05/24/25 1644 Abrasive Sawyer: Procedure Note Donotuseinterpreter, Image - 05/24/2025 [place] [address] Ultrasound Report Signed Patient: Lorin Cedillo MMR#: [id number] 142 : 1980Acct:[id number] Age/Sex: 44 / FADM Date: 05/24/25 Loc: HO.ED Attending Dr: Ordering Physician: Filomena Samaniego NP Date of Service: 05/24/25 Procedure(s): US Extremity Nonvas Limited RT Accession Number(s): [id number] cc: Filomena Samaniego NP; HELGA BLOOM NP [...] 05/24/25 1645 DD/ 1644 TD/TT: 05/24/25 1644 Abrasive Sawyer: us [facility] External Provider IMG US PROCEDURES Edited Result - Final * XR Ankle 3+ Views Right (05/24/2025 12:47 PM EDT) Anatomical Region Laterality Modality Lower Extremities, Ankle Right Radiogr aphic Imaging 05/24/2025 12:4 7 PM EDT Narrative 05/24/2025 12:48 PM EDT [address] [address] XRay Report Signed Patient: Lorin Cedillo MR#: [id number] 142 : 1980 Acct:[id number] Age/Sex: 44 / F ADM Date: 05/24/25 Loc: .ED Attending Dr: Ordering Physician: Russell mE Date of Service: 05/24/25 Procedure(s): XR ankle RT min 3V Accession Number(s): [id number] cc: Russell mE; HELGA BLOOM NP CLINICAL HISTORY: trauma 3 [...] in OV> 05/24/25 1248 DD/ 1247 TD/TT: 05/24/25 1247 Abrasive Sawyer: Procedure Note Donotuseinterpreter, Image - 05/24/[address] [address] XRay Report Signed Patient: Lorin Cedillo MMR#: [id number] 142 : 1980Acct:[id number] Age/Sex: 44 / FADM Date: 05/24/25 Loc: HO.ED Attending Dr: Ordering Physician: Russell Em Date of Service: 05/24/25 Procedure(s): XR ankle RT min 3V Accession Number(s): [id number] cc: Russell Em; HELGA BLOOM INTELLECTUAL PROPERTY LEGAL ASSISTANT CLINICAL HISTORY: trauma 3 view right ankle [...] in OV> 05/24/25 1248 DD/ 1247 TD/TT: 05/24/25 1247 Abrasive Sawyer: [facility] External Provider IMG XR PROCEDURES Final Result * XR Knee 4+ Views Right (05/24/2025 12:46 PM EDT) Anatomical Region Laterality Modality Lower Extremities, Knee Right Radiogra phic Imaging 05/24/2025 12:4 6 PM EDT Narrative 05/24/2025 12:47 PM EDT [place] [address] XRay Report Signed Patient: Lorin Cedillo MR#: [id number] 142 : 1980 Acct:[id number] Age/Sex: 44 / F ADM Date: 05/24/25 Loc: HO.ED Attending Dr: Ordering Physician: Russell Em Date of Service: 05/24/25 Procedure(s): XR knee RT 4V Accession Number(s): [id number] cc: Russell Em; HELGA BLOOM NP CLINICAL [...] in OV> 05/24/25 1247 DD/ 1246 TD/TT: 05/24/251245 Abrasive Sawyer: Procedure Note Donotuseinterpreter, Image - 05/24/2025 [place] [address] XRay Report Signed Patient: Lorin Cedillo MMR#: [id number] 142 : 1980Acct:[id number] Age/Sex: 44 / FADM Date: 05/24/25 Loc: HO.ED Attending Dr: Ordering Physician: Russell Em Date of Service: 05/24/25 Procedure(s): XR knee RT 4V Accession Number(s): [id number] cc: Russell Em; HELGA BLOOM NP CLINICAL [...] Alvarado MD in OV> 05/24/25 1247 DD/ 124 TD/TT: 05/24/251245 Abrasive Sawyer: [facility] External Provider IMG XR PROCEDURES Final Result * BI Mammogram Screening Tomosynthesis Bilateral (04/08/2025 2:25 PM EDT) Anatomical Region Laterality Modality Breast Bilateral Mammography 04/08/2025 2:25 PM EDT Narrative 04/21/2025 4:50 PM EDT [facility] [address] [place] [address] Mammography Report Signed Patient: Lorin Cedillo MR#: [id number] 142 : 1980 Acct:[id number] Age/Sex: 44 / F ADM Date: 04/08/25 Loc: HO.MAMMO Attending Dr: Helga Bloom NP Ordering Physician: HELGA BLOOM NP Results: 0Incomplete : Needs Additional Imaging Evaluation Date of Service: 04/08/25 Follow Up: Additional Imagi ng Procedure(s): MM tomosynthesis screening BI Accession Number(s): [id number] cc: HELGA BLOOM NP EXAMINATION: MM SCREENING DIGITAL BREAST TOMOSYNTHESIS, BILATERAL CLINICAL INFORMATION: Screening. Asymptomatic. COMPARISON: Mammography: Comparison is made with available priors TECHNIQUE: Digital breast mammography with tomosynthesis is performed in both the craniocaudal and mediolateral oblique views along with computer-aided detection (CAD). FINDINGS: The breasts are heterogeneously dense, which may obscure small masses (ACR BI-RADS breast composition Category c). Remote bilateral postsurgical changes are stable. Left: Developing focal asymmetry lower inner breast middle to posterior depth. No suspicious calcifications or other abnormal findings. Right: There are no significant masses, abnormal calcifications, or other abnormalities. MM/MM tomosynthesis screening BI IMPRESSION: Additional imaging is recommended ASSESSMENT: BI-RADS BI-RADS 0 - Incomplete: Needs additional Imaging. RECOMMENDATION: 1. Additional views of the left breast. 2. Targeted ultrasound if warranted after review of the additional views. 3. Radiology department staff will contact the patient for additional imaging. Additional Imaging required This examination should not preclude the clinical evaluation of a suspicious palpable abnormality. This patient's information was entered into a reminder system with a target due date for their next mammogram. Electronically signed by: Samantha Yeung DO 04/21/2025 04:47 PM EDT Dictated By: Samantha Yeung DO Signed By: <Electronically signed by Samantha Yeung DO in OV> 04/21/25 4905 DD/ 1425 TD/TT: 04/08/25 1445 Abrasive Sawyer: Procedure Note Donotuseinterpreter, Image - 04/21/[facility] [address] [place] [address] Mammography Report Signed Patient: Lorin Cedillo MMR#: [id number] 142 : 1980Acct:[id number] Age/Sex: 44 / FADM Date: 04/08/25 Loc: HO.MAMMO Attending Dr: Helga Bloom NP Ordering Physician: HELGA BLOOM NPResults: 0Incomplete : Needs Additional Imaging Evaluation Date of Service: 04/08/25Follow Up: Additional Imagi ng Procedure(s): MM tomosynthesis screening BI Accession Number(s): [id number] cc: HELGA BLOOM NP EXAMINATION: MM SCREENING DIGITAL BREAST TOMOSYNTHESIS, BILATERAL CLINICAL INFORMATION: Screening. Asymptomatic. COMPARISON: Mammography: Comparison is made with available priors TECHNIQUE: Digital breast mammography with tomosynthesis is performed in both the craniocaudal and mediolateral oblique views along with computer-aided detection (CAD). FINDINGS: The breasts are heterogeneously dense, which may obscure small masses (ACR BI-RADS breast composition Category c). Remote bilateral postsurgical changes are stable. Left: Developing focal asymmetry lower inner breast middle to posterior depth. No suspicious calcifications or other abnormal findings. Right: There are no significant masses, abnormal calcifications, or other abnormalities. MM/MM tomosynthesis screening BI IMPRESSION: Additional imaging is recommended ASSESSMENT: BI-RADS BI-RADS 0 - Incomplete: Needs additional Imaging. RECOMMENDATION: 1. Additional views of the left breast. 2. Targeted ultrasound if warranted after review of the additional views. 3. Radiology department staff will contact the patient for additional imaging. Additional Imaging required This examination should not preclude the clinical evaluation of a suspicious palpable abnormality. This patient's information was entered into a reminder system with a target due date for their next mammogram. Electronically signed by: Samantha Yeung DO 04/21/2025 04:47 PM EDT Dictated By: Samantha Yeung DO Signed By: <Electronically signed by Samantha Yeung DO in OV> 04/21/25 4047 DD/ 1425 TD/TT: 04/08/25 1445 Abrasive Sawyer: us Helga Bloom ANP IMG BI PROCEDURES Final Result * TSH W/Reflex to FT4 (03/13/2025 10:50 AM EDT) Pathologist [facility] TSH reflex Free T4 2.78 0.32 - 4.0 uIU/mL [facility] Blood Venous blood specimen / Unknown 03/13/2025 10:50 AM EDT 03/13/2025 12:56 PM EDT us Helga Bloom ANP LAB BLOOD ORDERABLES Final Resul t Performing Organization Address City/State/[facility] Co de Phone Number [facility] [address] [place] [phone] * CBC auto differential (03/13/2025 10:50 AM EDT) [facility] White Blood Count 8.6 4.8 - 10.8 X10*3/uL [facility] Red Blood Count 4.43 4.20 - 5.50 X10*6/uL [facility] Hemoglobin 13.0 12.0 - 16.0 g/dl [facility] Hematocrit 38.7 37.0 - 47.0 % [facility] Mean Corpuscular Volume 87.4 80.0 - 98.0 fL [facility] Mean Corpuscular Hemoglobin 29.3 27.0 - 33.0 pg [facility] Mean Corpuscular HGB Conc 33.6 31.0 - 35.0 g/dl [facility] Red Cell Distribution Width 12.4 11.0 - 16.0 % [facility] Platelet Count 318 160 - 400 X10*3/uL [facility] Mean Platelet Volume 11.4 9.4 - 12.3 fL [facility] Neutrophils Percent Auto 61.4 45 - 73 % [facility] Imm Gran Pct Auto 0.3 0.0 - 0.4 % [facility] Lymphocytes Percent Auto 27.1 20 - 40 % [facility] Monocytes Percent Auto 6.8 2 - 11 % [facility] Eosinophils Percent Auto 3.8 0 - 4 % [facility] Basophils Percent Auto 0.6 0 - 2 % [facility] NRBC Pct Auto 0.0 0.0 - 0.2 /100WBC [facility] Neutrophils Absolute Auto 5.3 2.0 - 8.3 x10*3/uL [facility] Imm Gran Abs Auto 0.03 0.00 - 0.03 X10*3/uL [facility] Lymphocytes Absolute Auto 2.3 1.2 - 4.9 X10*3/uL [facility] Monocytes Absolute Auto 0.6 0.1 - 1.2 X10*3/uL [facility] Eosinophils Absolute Auto 0.3 0.0 - 0.4 X10*3/uL [facility] Basophils Absolute Auto 0.1 0.0 - 0.2 X10*3/uL [facility] NRBC Abs Auto 0.000 0.0 - 0.012 X10*3/uL [facility] Blood Venous blood specimen / Unknown 03/13/2025 10:50 AM EDT 03/13/2025 12:56 PM EDT Helga Bloom [facility] LAB BLOOD ORDERABLES Final Resul t [facility] [address] [place] [phone] * Cyclic Citrullinated Peptide (CCP) Antibody (IgG) (03/13/2025 10:50 AM EDT) Cyclic Citrullinated Peptide <16 UNITS [facility] Comment:Reference RangeNegat guillermo: <20Weak Positive: 20-39Moderate Positive: 40-59Strong Positive: >59THIS TEST WAS PERFORMED AT:[employer] [place] [phone] BARAHONA MD Blood Venous blood specimen / Unknown 03/13/2025 10:50 AM EDT 03/13/2025 12:56 PM EDT Helga Bloom ANP LAB BLOOD ORDERABLES Final Resul t Performing Organization Address [facility] Co de Phone Number [facility] [address] [place] [phone] * Sed Rate by Modified Westergren (03/13/2025 10:50 AM EDT) Erythrocyte Sedimentation Rate 16 0 - 20 MM/HR [facility] Comment:Patients with polycy themia and many hemoglobin abnormalitiesmay have depressed sed rates whereas patients with anemiamay have elevated sed rates. Blood Venous blood specimen / Unknown 03/13/2025 10:50 AM EDT 03/13/2025 12:56 PM EDT Helga Bloom [facility] LAB BLOOD ORDERABLES Final Resul t Performing Organization Address [facility] Co de Phone Number [facility] [address] [place] [phone] * (ABNORMAL) C-reactive Protein (03/13/2025 10:50 AM EDT) C Reactive Protein 1.12(H) < or = 0.50 mg/dL [facility] Blood Venous blood specimen / Unknown 03/13/2025 10:50 AM EDT 03/13/2025 12:56 PM EDT Helga Bloom [facility] LAB BLOOD ORDERABLES Final Resul t Performing Organization Address [facility] Co de Phone Number [facility] [address] [place] [phone] * Hemoglobin A1c (03/13/2025 10:50 AM EDT) Hemoglobin A1c 5.1 <6.0 % [facility] Comment:Hemoglobin A1C Refer ence Range Adults: 4.8 - 6.0 % Non diabetic: < 6.0 % Goal: < 7.0 %Additional Action Suggested: > 8.0 %Note: Hemoglobin A1c results are invalid for patients with abnormal amounts of HbF. Blood transfusions may impact the HbA1c concentration in the patient sample. Estimated Average Glucose 100 mg/dL [facility] Comment:eAG = Estimated ave rage glucose which is %A1C expressed asaverage glucose, using the formula of the [id number] Glucose study (ADAG), Diabetes Care, Vol.31,#8,2007 Blood Venous blood specimen / Unknown 03/13/2025 10:50 AM EDT 03/13/2025 12:56 PM EDT us Helga Bloom [facility] LAB BLOOD ORDERABLES Final Resul t [facility] [address] [place] [phone] * (ABNORMAL) Lipid Panel, Standard (03/13/2025 10:50 AM EDT) Triglycerides 146 <150 mg/dL [facility] Comment:Desirable Triglyceri de: less than 150 mg/dLBorderline High Triglyceride 150-199 mg/dLHigh Triglyceride: 200-499 mg/dLVery High Triglyceride: greater than or equal to 5OO mg/dL Cholesterol 167 <200 mg/dL [facility] Comment:Desirable Cholestero l: less than 200 mg/dLBorderline High Cholesterol: 200-239 mg/dLHigh Cholesterol: greater than 239 mg/dL LDL Cholesterol Calculated 102(H) <100 mg/dL [facility] Comment:Desirable LDL: less than 100 mg/dLNear Optimal/Above Optimal LDL: 110- 129 mg/dLBorderline High LDL: 130-159 mg/dLHigh LDL: 160-189 mg/dLVery High LDL: greater than or equal to 190 mg/dL HDL Cholesterol 36(L) >40 mg/dL [facility] Comment:Desirable HDL: great er than 40 mg/dL Note: This HDL assay may give artificially low results in patients with liver disease. Blood Venous blood specimen / Unknown 03/13/2025 10:50 AM EDT 03/13/2025 12:56 PM EDT Helga Bloom ANP LAB BLOOD ORDERABLES Final Resul t Performing Organization Address City/[facility]/ZIP Co de Phone Number [facility] [address] [place] [phone] * (ABNORMAL) Comprehensive Metabolic Panel (03/13/2025 10:50 AM EDT) Sodium 140 135 - 145 mmol/L [facility] Potassium 3.8 3.3 - 5.1 mmol/L [facility] Chloride 110(H) 96 - 108 mmol/L [facility] Carbon Dioxide 23 22 - 29 mmol/L [facility] Anion Gap 11(L) 12 - 20 [facility] Urea Nitrogen (BUN) 19(H) 9 - 16 mg/dL [facility] Creatinine, Serum 0.66 0.5 - 1.4 mg/dL [facility] Estimated Glomerular Filt Rate >60 [facility] Comment:Chronic Kidney Disea se: Estimated GFR < 60 mL/min/1.84t3Hrvabx Kidney Disease: Estimated GFR < 15 mL/min/1.73m2 Glucose 92 60 - 115 mg/dL [facility] [facility] Calcium 8.9 8.4 - 10.2 mg/dL [facility] Bilirubin, Total 0.5 0.0 - 1.0 mg/dL [facility] Aspartate Amino Transferase 20 5 - 31 U/L [facility] Alanine Aminotransferase 13 0 - 31 U/L [facility] Total Protein 6.7 6.5 - 8.0 g/dL [facility] Albumin Level 4.1 3.5 - 5.0 g/dL [facility] Alkaline Phosphatase 62 39 - 117 U/L [facility] Blood Venous blood specimen / Unknown 03/13/2025 10:50 AM EDT 03/13/2025 12:56 PM EDT Helga Bloom ANP LAB BLOOD ORDERABLES Final Resul t Performing Organization Address City/[facility]/ZIP Co de Phone Number [facility] [address] [place] [address] [phone] * HPV mRNA E6/E7 w/Reflex to HPV Genotypes 16, 18/45 (08/31/2022 10:32 AM EST) HPV nRNA E6/E7 Not Detected Not Detected [facility] Comment:Methodology: Transcr iption-Mediated AmplificationThis assay detects E6/E7 viral messenger RNA (mRNA) from 14high-risk HPV types (16,18,31,33,35,39,45,51,52,56,58,59,66,68).Cervical sources are required for HPV testing.If a vaginal source from a patient who has had atotal hysterectomy with removal of cervix wassubmitted, please contact the testing laboratoryfor alternative testing options.For additional information, please refer tohttp://education.Clarassance/faq/JHE983o1(This link if provided for information/educational purposes only.)THIS TEST WAS PERFORMED AT:[employer] [place] [address],[place] [address]EWQRTJUAN BARAHONA MD HPV mRNA E6/E7 [facility] HPV 16 RNA [facility] HPV 18/45 RNA [facility] 08/31/2022 10:3 2 AM EST 08/31/2022 12:45 PM EST [facility] External Provider LAB CYT OLOGY ORDERABLES Final Result [facility] [address] [place] [address] [phone] * Pap Smear (08/31/2022 10:32 AM EST) 08/31/2022 10:3 2 AM EST 08/31/2022 12:45 PM EST Narrative [facility] - 09/18/2022 3:57 PM EST ----- ------- Name: Lorin Cedillo Age/Sex: 42/F : 1980 Unit#: [id number] Attend Dr: Evangelina Cortez CNM Re08/31/22 Status: DEP REF Location: [facility] Disch: ----- ------- SPEC : [id number] RECD: 08/31/225 STATUS: ALEXANDRA ELLA NUM: [id number] RENALDO: 08/31/22 [facility] DR: Evangelina Cortez CNM ENTERED: 08/31/22-1256 SP TYPE: Pap Smr OSVALDO DR: ORDERED: Pap Smear Interpretation Satisfactory for evaluation. Negative for intraepithelial lesion or malignancy. HPV mRNA E6/E7: NOT DETECTED This assay detects E6/E7 viral messenger RNA (mRNA) from 14 high-risk HPV types (16, 18, 31, 33, 35, 39, 45, 51, 52, 56, 58, 59, 66, 68) HPV testing performed by [employer], [place], [place]. See reference laboratory portion of the EMR for entire report. Clinical Information LMP: 08/27/2022 Previous PAP test: 01/25/2022, Unknown Material Received ThinPrep-Cervical ----- ------- Signed (signature on file) Rose Zamudio 09/18/22 1557 ----- ------- END OF REPORT [facility] External Provider LAB CYT MANA ORDERABLES Final Result Performing Organization Address [facility] Co de Phone Number [facility] [address] [place] [address] [phone] * HEPATITIS C AB W/REFL TO HCV RNA, QN, PCR (11/01/2021 2:36 PM EST) HEPATITIS C ANTIBODY NON-REACT [facility] NON-REACT [facility] INDEX 0.03 <1.00 [facility] Comment: HCV antibody was non-reactive. There is no laboratory evidence of HCV infection. In most cases, no further action is required. However, if recent HCV exposure is suspected, a test for HCV RNA (test code 94803) is suggested. For additional information please refer to http://education.[employer].Nimbit/faq/GPF28h3 (This link is being provided for informational/ educational purposes only.) 11/01/2021 2:36 PM EST Helga Oly MARQUEZ HISTORICAL/NON ORDERABLE LABS Fi nal Result Performing Organization Address [facility] Co de Phone Number [facility] [address] [place] [address], * HIV 1/2 ANTIGEN/ANTIBODY,FOURTH GENERATION W/RFL (11/01/2021 2:36 PM EST) HIV-1/2 ANTIGEN AND ANTIBODIES, 4TH GENERATION W/ REFLEX NON-REACT [facility]LLERMO NON-REACT [facility] Comment: HIV-1 antigen and HIV-1/HIV-2 antibodies were not detected. There is no laboratory evidence of HIV infection. PLEASE NOTE: This information has been disclosed to you from records whose confidentiality may be protected by state law. If your state requires such protection, then the state law prohibits you from making any further disclosure of the information without the specific written consent of the person to whom it pertains, or as otherwise permitted by law. A general authorization for the release of medical or other information is NOT sufficient for this purpose. For additional information please refer to http://education.Clarassance/faq/ARC810 (This link is being provided for informational/ educational purposes only.) The performance of this assay has not been clinically validated in patients less than 2 years old. 11/01/2021 2:36 PM EST [facility] LAB BLOOD ORDERABLES Final Resul t [facility] [address] from Last 3 Months or Most Recently Relevant to Health Maintenance Insurance [facility] STANDARD Care Teams Legal Officer Relationship Specialty Start Date End Date Helga Bloom ANP [address] [place] [phone] PCP - General Family Medicine 04/26/23
== END 2025-05-28 08:30 | disposition home or self-care (01) ==
LOC: HO.HOSX 08:29
PROVIDERS: Visit Provider Physician Assistant
DX: S86.111A Strain of other muscle(s) and tendon(s) of posterior muscle group at lower leg level, right leg, initial encounter (principal); M25.571 Pain in right ankle and joints of right foot; X58.XXXA Exposure to other specified factors, initial encounter; Y93.01 Activity, walking, marching and hiking
CPT/HCPCS: 73610; 99212

== ENCOUNTER 2025-05-28 13:43 | Outpatient (AMB) | payer MEDICAID, SELFPAY ==
--- NOTE | 2025-05-28 14:05 | A.OFFVIS_ITS ---
Intake Visit Reasons: ER/SCALP SPECIALIST-RT, suspected achilles tendon rupture Intake Note: Lorin is a 44 year old female who presents today for a evaluation of her right achilles pain, DOI 05/12/25 . Patient reports she was walking up the stairs and she stopped on one of the stairs. Then the front part of her foot felt immediate pain. She states that her pain is below the knee up until the feet. Patient states that bruising started 2 days after injury but it is getting better but the swelling has remained the same.She states her pain at the moment is high and she has tried oxycodne and tylenol with no affect. Allergies ketorolac (From TORADOL) Allergy (Severe, Verified 05/24/25 12:05) HOTNESS HPI HPI ER/SCALP SPECIALIST-RT, suspected achilles tendon rupture: Details: Ms. Cedillo is a 44-year-old female who presents to the office today for evaluation of a right lower extremity injury that occurred on 05/17/2025. She states that she was going up the stairs when she placed her foot on the edge of the step and had to use her calf muscle to assist with pushing off to the next step. She felt immediate pain. Over the next few days she developed significant swelling and edema. She presented to the emergency department on 05/24/2025 where ultrasound was obtained and concerning for a possible Achilles tendon rupture. She was placed into a posterior splint in slight plantar flexion and instructed to follow up with orthopedics outpatient for further evaluation and treatment. Unfortunately, the patient was unable to tolerate the splint application because of swelling and therefore removed it. Additionally, she struggled with the use of crutches. 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 The patient is able to demonstrate slight dorsiflexion and plantar flexion but is significantly limited due to pain in her calf. Achilles tendon is palpable. Extreme pain with calf squeeze. Negative Rankin's test. Sensation is intact. Pedal pulse intact. Psych Appearance: grossly normal Mental Status: mental status grossly normal Attitude: cooperative Assessment & Plan Assessment & Plan (1) Strain of right gastrocnemius muscle: Code(s): S86.111A - Strain of other muscle(s) and tendon(s) of posterior muscle group at lower leg level, right leg, initial encounter Category: Medical Plan Ms. Cedillo is a 44-year-old female who presents to the office today for evaluation of a right lower extremity injury that occurred on 05/17/2025. She states that she was going up the stairs when she placed her foot on the edge of the step and had to use her calf muscle to assist with pushing off to the next step. She felt immediate pain. Over the next few days she developed signif icant swelling and edema. She presented to the emergency department on 05/24/2025 where ultrasound was obtained and concerning for a possible Achilles tendon rupture. She was placed into a posterior splint in slight plantar flexion and instructed to follow up with orthopedics outpatient for further evaluation and treatment. Unfortunately, the patient was unable to tolerate the splint application because of swelling and therefore removed it. Additionally, she struggled with the use of crutches. While in the office today, the patient has a palpable Achilles tendon and a negative Rankin's test leaving it unlikely that she has an Achilles tendon rupture. The majority of her pain is in the calf muscle belly accompanied by edema and ecchymosis. I have placed her into a tall walking boot in which she may weightbear as tolerated. Additionally, I have placed an order for physical therapy. She will follow up in 4 weeks, sooner if needed. X-rays of the right ankle which were obtained while in the office today and were reviewed by me, Tabatha Del Rio PA-C, revealed negative for any acute fracture dislocation. Orders: Orders XR ankle RT min 3V Today M25.579 - Pain in unspecified ankle and joints of unspecified foot Coding Level of Care Code New Pt Level 3 (15084) Diagnoses Strain of right gastrocnemius muscle S86.111A
== END 2025-05-28 14:39 | disposition home or self-care (01) ==
LOC: HO.HOS 13:44
PROVIDERS: PCP Nurse Practitioner Primary Care; Visit Provider Physician Assistant
DX: S86.111A Strain of other muscle(s) and tendon(s) of posterior muscle group at lower leg level, right leg, initial encounter (principal)
CPT/HCPCS: 99203

== ENCOUNTER → 2025-05-28 13:47 | Outpatient (BNV) | payer MEDICAID, SELFPAY | PROVIDERS: Visit Provider Radiology Diagnostic Radiology | DX: M77.31 Calcaneal spur, right foot (principal) | CPT/HCPCS: 73610 ==

== ENCOUNTER 2025-06-09 14:26 | Outpatient (REF) | payer MEDICAID, SELFPAY ==
--- OUTSIDE RECORDS SUMMARY | 2025-06-03 15:45 | XMS_ITS | Encounter Summary ---
Author Organization [employer] Address [address] [facility] [address] [place] [address] Care Team Providers Care Television Presenter Name Role Phone Korin Aldridge Primary Care Provider [phone] Reason for Visit * Reason Comments Follow-up Encounter Details Date Type Department Care Team ([facility] st Contact Info) Description 06/03/2025 3:45 PM EDT Office Visit [facility] [address] [place] [address] Korin Aldridge ANP [address] [place] [address] Rupture of right Achilles tendon, subsequent encounter (Primary Dx); Rheumatoid factor positive; Polyarthralgia Social History Tobacco Use Types Packs/Day Years Used Date Smoking Tobacco: Never Passive Smoke Exposure: Current Smokeless Tobacco: Never Alcohol Use Standard Drinks/Week Comments Never 0 (1 standard drink = 0.6 oz pur e alcohol) Depression Answer Date Recorded Patient Health Questionnaire-9 Score 03/20/2025 Patient Health Questionnaire-9 Score 03/20/2025 Last PHQ-9: Questionnaire Data Not on [...] Sign Reading Time Taken Comments Blood Pressure 110/72 06/03/2025 3:58 PM EDT Pulse 88 06/03/2025 3:58 PM EDT Temperature 37.2 C (98.9 F) 06/03/2025 3:58 PM EDT Respiratory Rate 20 06/03/2025 3:58 PM EDT Oxygen Saturation 98% 06/03/2025 3:58 PM EDT Inhaled Oxygen Concentration - - Weight - - Height - - Body Mass Index - - documented in this encounter Progress Notes * ALMA Jiménez - 06/03/2025 3:45 PM EDT Subjective Patient ID: Lorin Cedillo is a 44 y.o. female who presents for Follow-up. HPI She is here today for routine follow-up but incidentally fell on stairs From orthopedics right lower extremity injury that occurred on 05/17/2025. She states that she was going up the stairs when she placed her foot on the edge of the step and had to use her calf muscle to assist with pushing off to the next step. She felt immediate pain. Over the next few days she developed significant swelling and edema. She presented to the emergency department on 05/24/2025 where ultrasound was obtained andconcerning for a possible Achilles tendon rupture. She was placed into a posterior splint in slightplantar flexion and instructed to follow up with orthopedics outpatient for further evaluation and treatment. Unfortunately, the patient was unable to tolerate the splint application because of swelling and therefore removed it. Additionally, she struggled with the use of crutches. Right calf: Significant ecchymosis circumferentially and sporadic throughout the lower extremity extending into the foot. The patient is able to demonstrate slight dorsiflexion and plantar flexion but is significantly limited due to pain in her calf. Achilles tendon is palpable. Extreme pain with calf squeeze. Negative Rankin's test. Sensation is intact. Pedal pulse intact. She has abnormal mammo follow-up imaging from [facility] on 06/09/25. Rheum appt is not scheduled until NEXT May 2026. She had elevated RF level and polyarthralgia and AM stiffness. Former smoker Review of Systems Constitutional: Negative for chills and fever. HENT: Negative for sore throat. Respiratory: Negative for cough and shortness of breath. Cardiovascular: Negative for chest pain. Gastrointestinal: Negative for constipation and diarrhea. Endocrine: Negative for polydipsia, polyphagia and polyuria. Genitourinary: Negative for dysuria. Musculoskeletal: Positive for arthralgias. Bruising RLE, ankle and leg pain Neurological: Positive for weakness and numbness. Objective BP 110/72 (BP Location: Left arm, Patient Position: Sitting, BP Cuff Size: Adult) Pulse88 Temp 98.9 ??F (37.2 ??C) (Oral) Resp 20 SpO2 98% Physical Exam Constitutional: General: She is not in acute distress. Appearance: Normal appearance. She is obese. She is not ill-appearing. HENT: Head: Normocephalic and atraumatic. Eyes: General: No scleral icterus. Extraocular Movements: Extraocular movements intact. Pupils: Pupils are equal, round, and reactive to light. Cardiovascular: Rate and Rhythm: Normal rate and regular rhythm. Pulmonary: Effort: Pulmonary effort is normal. No accessory muscle usage or respiratory distress. Musculoskeletal: Comments: RLE in walking boot Neurological: Mental Status: She is alert and oriented to person, place, and time. Psychiatric: Mood and Affect: Mood normal. Behavior: Behavior normal. Assessment/Plan Diagnoses and all orders for this visit: Rupture of right Achilles tendon, subsequent encounter Reviewed when to call ortho or seek ED care, take meds as below, either together APAP and ibuprofenand then tramadol if needed. Cautioned of KIRIT. follow-up w/ PT as planned. - ibuprofen 800 MG tablet; Take 1 tablet (800 mg) by mouth every 8 (eight) hours if needed for moderate pain. - acetaminophen (Tylenol) 500 MG tablet; 1 or 2 tablets every 8 hours, do not take more than 6 tablets in 24 hours - traMADol (Ultram) 50 MG tablet; Take 1 tablet (50 mg) by mouth Every 6-8 hours as needed for severe pain for up to 7 days. Rheumatoid factor positive Polyarthralgia She will call rheum to get on cancellation list depression Met w/ Clinician Fatou (Mag Moncada) today for depression/stress documented in this encounter Plan of Treatment Not on file documented as of this encounter Visit Diagnoses Diagnosis Rupture of right Achilles tendon, subsequent encounter- Primary Rheumatoid factor positive Other and unspecified nonspecific immunological findings Polyarthralgia Pain in joint, multiple sites documented in this encounter Additional Health Concerns Assessment Noted Time PHQ-9 Depression Total Score: 20 03/20/2 025 1:19 PM EDT documented as of this encounter Care Teams Television Presenter Relationship Specialty Start Date End Date Korin Aldridge ANP [address] [place] [phone] PCP - General Family Medicine 04/26/23 documented as of this encounter
--- NOTE | ~2025-06-09 | MM_ITS ---
EXAMINATION(S): 1. MM DIAGNOSTIC DIGITAL BREAST TOMOSYNTHESIS, LEFT 2. Targeted ultrasound of the left breast CLINICAL INFORMATION: Callback from screening for left breast focal asymmetry in the lower inner quadrant middle to posterior depth COMPARISON: Comparison made to multiple prior, most recent April 08, 2025, and most remote October 02, 2020. TECHNIQUE: Digital breast tomosynthesis is performed in full field ML 90 degrees along with computer-aided detection (CAD). Synthesized 2D images are generated from the tomosynthesis. Spot compression tomosynthesis were obtained. FINDINGS: BREAST COMPOSITION: There are scattered areas of fibroglandular density (ACR BI-RADS breast composition Category b). LEFT BREAST: Approximately 0.6 cm round mass persists with spot compression in the lower inner quadrant at about 6 cm from the nipple (spot CC 22/69, spot MLO 47/79). Targeted ultrasound of the left breast was performed at the location of the mammographic finding. The survey shows a 0.5 x 0.5 x 0.5 cm simple cyst at 8 o'clock position 5 cm from the nipple. No internal vascularity demonstrated with color Doppler evaluation. Findings correlate with the mammographic finding. MM/MM tomosynthesis added views L IMPRESSION: LEFT BREAST: Simple cyst at 8 o'clock position 5 cm from the nipple. Benign, no mammographic evidence of malignancy. Normal interval follow-up is recommended in 12 months. ASSESSMENT: BI-RADS 2 - Benign Findings RECOMMENDATION: 1 year F/U Results were provided to the patient at time of visit by the technologist. This patient's information was entered into a reminder system with a target due date for their next mammogram. Electronically signed by: Donal Sethi MD 06/09/2025 03:41 PM EDT
--- OUTSIDE RECORDS SUMMARY | 2025-06-09 17:00 | XMS_ITS | Encounter Summary ---
Author Organization [employer] Address [address] [facility] [address] [place] [address] Care Team Providers Care Real Estate Investor Name Role Phone Korin Aldridge Primary Care Provider [phone] Reason for Visit * Reason Onset Date Comments Referral 03/24/2025 Encounter Details Date Type Department Care Team ([facility] st Contact Info) Description 03/24/2025 Telephone [facility] [address] [place] [address] Korin Aldridge ANP [address] [place] [address] Referral Social History Tobacco Use Types Packs/Day [...] documented as of this encounter Care Teams Real Estate Investor Relationship Specialty Start Date End Date Korin Aldridge ANP [address] [place] [id number] PCP - General Family Medicine 04/26/23 documented as of this encounter
--- OUTSIDE RECORDS SUMMARY | 2025-06-09 17:00 | XMS_ITS | Encounter Summary ---
Author Organization [employer] Address [address] [facility] 7[address] [place] [address] Care Team Providers Care Middle School Assistant Principal Name Role Phone Korin Aldridge Primary Care Provider [phone] Encounter Details Date Type Department Care Team ([facility] st Contact Info) Description 12/19/2023 Telephone [facility] [address] [place] [address] Korin Aldridge ANP [address] [place] [address] Social History Tobacco Use Types Packs/Day Years [...] as of this encounter Plan of Treatment Not on file documented as of this encounter Visit Diagnoses Not on filedocumented in this encounter Additional Health Concerns Assessment Noted Time PHQ-9 Depression Total Score: 5 05/03/20 10:07 AM EDT documented as of this encounter Care Teams Middle School Assistant Principal Relationship Specialty Start Date End Date Korin Aldridge ANP [address] [place] [address] PCP - General Family Medicine 04/26/23 documented as of this encounter
--- OUTSIDE RECORDS SUMMARY | 2025-06-09 17:00 | XMS_ITS | Encounter Summary ---
Author Organization [employer] Address [address] [facility] [address] [place] [address] Care Team Providers Care School Guidance Counselor Name Role Phone Korin Aldridge Primary Care Provider [phone] Encounter Details Date Type Department Care Team (Late st Contact Info) Description 01/07/2024 Telephone [facility] [address] [place] [address] Korin Aldridge ANP [address] [place] [address] Social History Tobacco Use Types Packs/Day Years [...] documented as of this encounter Care Teams School Guidance Counselor Relationship Specialty Start Date End Date Korin Aldridge ANP [address] [place] [address] PCP - General Family Medicine 04/26/23 documented as of this encounter
--- OUTSIDE RECORDS SUMMARY | 2025-06-09 17:00 | XMS_ITS | Encounter Summary ---
Author Organization [employer] Address [address] [facility] [address] [place] [address] Care Team Providers Care Manager [employer] Name Role Phone Korin Aldridge Primary Care Provider [phone] Encounter Details Date Type Department Care Team (Latest Contact Info) Description 04/21/2025 Results Follow-Up [facility] [address] [place] [address] Korin Aldridge ANP [address] [place] [address] BI Mammogram Screening Tomosynthesis Bilateral Social History [...] know if she does not hear from [facility] for add'l imaging. * Result Encounter Note - ALMA Jiménez - 04/21/2025 5:14 PM EDT Please follow, BIRADS0 documented in this encounter Plan of Treatment Not on file documented as of this encounter Visit Diagnoses Not on filedocumented in this encounter Additional Health Concerns Assessment Noted Time PHQ-9 Depression Total Score: 20 025 1:19 PM EDT documented as of this encounter Care Teams Manager [employer] Relationship Specialty Start Date End Date Korin Aldridge ANP [address] [place] [address] PCP - General Family Medicine 04/26/23 documented as of this encounter
--- OUTSIDE RECORDS SUMMARY | 2025-06-09 17:01 | XMS_ITS | Clinical Summary ---
Author Organization [employer] Address [address] [facility] [address] [place] [address] Care Team Providers Care Mill Tender Warm Up Name Role Phone Helga Bloom Primary Care Provider [phone] Allergies Active Allergy Reactions Criticality Noted Date Comments Ketorolac Tromethamine Other Medium 03/20/2024 Hot flashes, flushing; tolerates other NSAIDs Medications * This document contains information received from the source organization and may not represent a complete record from that organization. ibuprofen 800 MG tabletIndicati ons:Rupture of right Achilles tendon, subsequent encounter Take 1 tablet (800 mg) by mouth every 8 (eight) hours if needed for moderate pain. 60 tablet 1 06/03/20 25 Active acetaminophen (Tylenol) 500 MG tabletIndicati ons:Rupture of right Achilles tendon, subsequent encounter 1 or 2 tablets every 8 hours, do not take more than 6 tablets in 24 hours 100 tablet 1 06/03/20 25 Active traMADol (Ultram) 50 MG tabletIndicati ons:Rupture of right Achilles tendon, subsequent encounter Take 1 tablet (50 mg) by mouth Every 6-8 hours as needed for severe pain for up to 7 days. 21 tablet 06/03/20 25 025 Active meloxicam (Mobic) 7.5 MG tablet Take 1 tablet (7.5 mg) by mouth 2 times daily. 60 tablet 11 11/26/19 25 025 Discontinued(Th erapy completed) acetaminophen (Tylenol) 500 MG tablet Take 1,000 mg by mouth if needed in the morning, at noon, in the evening, and at bedtime. 11/01/19 23 025 Discontinued(Re order (will not trigger notification to Pharmacy)) ibuprofen 600 MG tablet Take 600 mg by mouth if needed in the morning, at noon, and at bedtime. 11/01/19 23 025 Discontinued(Th erapy completed) Active Problems Problem Noted Date Diagnosed Date [...] treatment PLAN: 1. Follow up with [facility] [place]: Not recommended for follow-up 2. Patient goal is to engage in MH services 3. Behavioral Recommendations a. Ind. Therapy b. Use of coping skills c. HC contact number for support as needed. Backache 02/19/2012 Disorder of function of stomach 02/19/2012 Pain in joint involving lower leg 02/19/2012 Abdominal pain 02/19/2012 Posttraumatic stress disorder 02/19/2012 Encounters * This document contains information received from the source organization and may not represent a complete record from that organization. Date Type Department Care Team Description 06/09/2025 Orders Only [address] [address] Helga Bloom ANP 06/05/[address] [address] Helga Bloom ANP Appointment Request 06/03/2025 3:45 PM EDT Office Visit [address] [address] Helga Bloom ANP Rupture of right Achilles tendon, subsequent encounter (Primary Dx); Rheumatoid factor positive; Polyarthralgia 06/03/2025 Travel 06/02/[address] [address] Helga Bloom ANP CHART PREP 05/24/2025 Orders Only [facility] External Provider, [facility] 04/22/[address] [address] Helga Bloom ANP 04/21/2025 Results [address]-Up [address] [place] [address] Helga Bloom ANP BI Mammogram Screening Tomosynthesis Bilateral 03/24/2025 Telephone [facility] [place] [address] Helga Bloom ANP Referral 03/20/2025 1:00 PM EDT [address] [place] [address] Helga Bloom ANP Depression, unspecified depression type (Primary Dx); Posttraumatic stress disorder; Polyarthralgia; Elevated C-reactive protein (CRP); Rheumatoid factor positive; Morning stiffness of joints 03/20/2025 Travel 03/18/2025 Telephone [facility] [facility] [place] [address] Helga Bloom ANP Chart Prep 03/16/[address] [address] Helga Bloom ANP 03/16/2025 Results Follow-Up [address] [place] [address] Helga Bloom ANP Lipid Panel, Standard, Hemoglobin [...] 03/20/2025 1:16 PM EDT Plan of Treatment Health Maintenance Due Date Last Done Comments Family Planning (PISQ) 1995 HPV Vaccines (1 - 3-dose series) 1995 Hepatitis B Vaccines (1 of 3 - 19+ 3-dose series) 1999 COVID-19 Vaccine (2023-2 5 season) 2025 Influenza Vaccine (#1) 2025 2012 Diagnostic Breast Imaging 07/09/2025 06/09/2025 Pap Smear 08/31/2025 08/31/2022 Depression Monitoring 09/19/2025 03/20/2025 , 03/20/2025 Alcohol/Substance Use Screening 03/20/2026 03/20/2025 Disability Screening 03/20/2026 03/20/2025 SDOH Screening 03/20/2026 03/20/2025 Tobacco Screening 06/03/2026 06/03/2025 DTaP/Tdap/Td Vaccines (3 - T d or [...] Procedure Name Priority Date/Time Associated Diagnosis Comments BI US BREAST LIMITED LEFT Routine 06/09/2025 2:56 PM EDT BI MAMMOGRAM DIAGNOSTIC TOMOSYNTHESIS ADDED VIEW LEFT Routine 06/09/2025 2:29 PM EDT US EXTREMITY NON-VASCULAR RIGHT LIMITED Routine 05/24/2025 [...] Recently Relevant to Health Maintenance Results * BI US Breast Limited Left (06/09/2025 2:56 PM EDT) Anatomical Region Laterality Modality Breast Left Ultrasound 06/09/2025 2:56 PM EDT Narrative 06/09/2025 3:44 PM EDT [address] [place] [address] Ultrasound Report Signed Patient: Lorin Cedillo MR#: [id number] 142 : 1980 Acct:[id number] Age/Sex: 44 / F ADM Date: 06/09/25 Loc: HO.MAMMO Attending Dr: Helga Bloom NP Ordering Physician: HELGA BLOOM NP Date of Service: 06/09/25 Procedure(s): US breast LT limited mamm only Accession Number(s): [id number] cc: HELGA BLOOM NP Reason for Exam: LT BR AV US FOR FOCAL ASYMMETRY EXAMINATION(S): 1. MM DIAGNOSTIC DIGITAL BREAST TOMOSYNTHESIS, LEFT 2. Targeted ultrasound of the left breast CLINICAL INFORMATION: Callback from screening for left breast focal asymmetry in the lower inner quadrant middle to posterior depth COMPARISON: Comparison made to multiple prior, most recent April 08, 2025, and most remote October 02, 2020. TECHNIQUE: Digital breast tomosynthesis is performed in full field ML 90 degrees along with computer-aided detection (CAD). Synthesized 2D images are generated from the tomosynthesis. Spot compression tomosynthesis were obtained. FINDINGS: BREAST COMPOSITION: There are scattered areas of fibroglandular density (ACR BI-RADS breast composition Category b). LEFT BREAST: Approximately 0.6 cm round mass persists with spot compression in the lower inner quadrant at about 6 cm from the nipple (spot CC 22/69, spot MLO 47/79). Targeted ultrasound of the left breast was performed at the location of the mammographic finding. The survey shows a 0.5 x 0.5 x 0.5 cm simple cyst at 8 o'clock position 5 cm from the nipple. No internal vascularity demonstrated with color Doppler evaluation. Findings correlate with the mammographic finding. US/US breast LT limited mamm only IMPRESSION: LEFT BREAST: Simple cyst at 8 o'clock position 5 cm from the nipple. Benign, no mammographic evidence of malignancy. Normal interval follow-up is recommended in 12 months. ASSESSMENT: BI-RADS 2 - Benign Findings RECOMMENDATION: 1 year F/U Results were provided to the patient at time of visit by the technologist. This patient's information was entered into a reminder system with a target due date for their next mammogram. Electronically signed by: Donal Sethi MD 06/09/2025 03:41 PM EDT RP Dictated By: Donal Sethi MD Signed By: <Electronically signed by Donal Sethi MD in OV> 06/09/25 1541 DD/ 1456 TD/TT: 06/09/25 1501 Health Sciences Manager: Procedure Note Donotuseinterpreter, Image - 06/09/2025 [facility] [address] [place], [place] [address] Ultrasound Report Signed Patient: Lorin Cedillo MMR#: [id number] 142 : 1980Acct:[id number] Age/Sex: 44 / FADM Date: 06/09/25 Loc: HO.MAMMO Attending Dr: Helga Bloom NP Ordering Physician: HELGA BLOOM NP Date of Service: 06/09/25 Procedure(s): US breast LT limited mamm only Accession Number(s): [id number] cc: HELGA BLOOM NP Reason for Exam: LT BR AV US FOR FOCAL ASYMMETRY EXAMINATION(S): 1. MM DIAGNOSTIC DIGITAL BREAST TOMOSYNTHESIS, LEFT 2. Targeted ultrasound of the left breast CLINICAL INFORMATION: Callback from screening for left breast focal asymmetry in the lower inner quadrant middle to posterior depth COMPARISON: Comparison made to multiple prior, most recent April 08, 2025, and most remote October 02, 2020. TECHNIQUE: Digital breast tomosynthesis is performed in full field ML 90 degrees along with computer-aided detection (CAD). Synthesized 2D images are generated from the tomosynthesis. Spot compression tomosynthesis were obtained. FINDINGS: BREAST COMPOSITION: There are scattered areas of fibroglandular density (ACR BI-RADS breast composition Category b). LEFT BREAST: Approximately 0.6 cm round mass persists with spot compression in the lower inner quadrant at about 6 cm from the nipple (spot CC 22/69, spot MLO 47/79). Targeted ultrasound of the left breast was performed at the location of the mammographic finding. The survey shows a 0.5 x 0.5 x 0.5 cm simple cyst at 8 o'clock position 5 cm from the nipple. No internal vascularity demonstrated with color Doppler evaluation. Findings correlate with the mammographic finding. US/US breast LT limited mamm only IMPRESSION: LEFT BREAST: Simple cyst at 8 o'clock position 5 cm from the nipple. Benign, no mammographic evidence of malignancy. Normal interval follow-up is recommended in 12 months. ASSESSMENT: BI-RADS 2 - Benign Findings RECOMMENDATION: 1 year F/U Results were provided to the patient at time of visit by the technologist. This patient's information was entered into a reminder system with a target due date for their next mammogram. Electronically signed by: Donal Sethi MD 06/09/2025 03:41 PM EDT Dictated By: Donal Sethi MD Signed By: <Electronically signed by Donal Sethi MD in OV> 06/09/25 1541 DD/ 1456 TD/TT: 06/09/25 1501 Health Sciences Manager: us Helga [facility] IM US PROCEDURES Final Result * BI Mammogram Diagnostic Tomosynthesis added left (06/09/2025 2:29 PM EDT) Anatomical Region Laterality Modality Breast Left Mammography 06/09/2025 2:29 PM EDT Narrative 06/09/2025 3:44 PM EDT [facility] [address] [place], [place] [address] Mammography Report Signed Patient: Lorin Cedillo MR#: [id number] 142 : 1980 Acct:[id number] Age/Sex: 44 / F ADM Date: 06/09/25 Loc: HO.MAMMO Attending Dr: Helga Bloom NP Ordering Physician: HELGA BLOOM NP Results: 2Benign Saad parmar Date of Service: 06/09/25 Follow Up: 1 Year From Orig inal Mammogram Procedure(s): MM tomosynthesis added views L Accession Number(s): [id number] cc: HELGA BLOOM NP EXAMINATION(S): 1. MM DIAGNOSTIC DIGITAL BREAST TOMOSYNTHESIS, LEFT 2. Targeted ultrasound of the left breast CLINICAL INFORMATION: Callback from screening for left breast focal asymmetry in the lower inner quadrant middle to posterior depth COMPARISON: Comparison made to multiple prior, most recent April 08, 2025, and most remote October 02, 2020. TECHNIQUE: Digital breast tomosynthesis is performed in full field ML 90 degrees along with computer-aided detection (CAD). Synthesized 2D images are generated from the tomosynthesis. Spot compression tomosynthesis were obtained. FINDINGS: BREAST COMPOSITION: There are scattered areas of fibroglandular density (ACR BI-RADS breast composition Category b). LEFT BREAST: Approximately 0.6 cm round mass persists with spot compression in the lower inner quadrant at about 6 cm from the nipple (spot CC 22/69, spot MLO 47/79). Targeted ultrasound of the left breast was performed at the location of the mammographic finding. The survey shows a 0.5 x 0.5 x 0.5 cm simple cyst at 8 o'clock position 5 cm from the nipple. No internal vascularity demonstrated with color Doppler evaluation. Findings correlate with the mammographic finding. MM/MM tomosynthesis added views L IMPRESSION: LEFT BREAST: Simple cyst at 8 o'clock position 5 cm from the nipple. Benign, no mammographic evidence of malignancy. Normal interval follow-up is recommended in 12 months. ASSESSMENT: BI-RADS 2 - Benign Findings RECOMMENDATION: 1 year F/U Results were provided to the patient at time of visit by the technologist. This patient's information was entered into a reminder system with a target due date for their next mammogram. Electronically signed by: Donal Sethi MD 06/09/2025 03:41 PM EDT Dictated By: Donal Sethi MD Signed By: <Electronically signed by Donal Sethi MD in OV> 06/09/25 1541 DD/ 1429 TD/TT: 06/09/25 1442 Health Sciences Manager: Procedure Note Donotuseinterpreter, Image - 06/09/2025 [facility] [address] [place] [address] Mammography Report Signed Patient: Lorin Cedillo MMR#: [id number] 142 : 1980Acct:[id number] Age/Sex: 44 / FADM Date: 06/09/25 Loc: HO.MAMMO Attending Dr: Helga Bloom NP Ordering Physician: HELGA BLOOM NPResults: 2Benign Saad dinggwendolyn Date of Service: 06/09/25Follow Up: 1 Year From Orig inal Mammogram Procedure(s): MM tomosynthesis added views L Accession Number(s): [id number] cc: HELGA BLOOM NP EXAMINATION(S): 1. MM DIAGNOSTIC DIGITAL BREAST TOMOSYNTHESIS, LEFT 2. Targeted ultrasound of the left breast CLINICAL INFORMATION: Callback from screening for left breast focal asymmetry in the lower inner quadrant middle to posterior depth COMPARISON: Comparison made to multiple prior, most recent April 08, 2025, and most remote October 02, 2020. TECHNIQUE: Digital breast tomosynthesis is performed in full field ML 90 degrees along with computer-aided detection (CAD). Synthesized 2D images are generated from the tomosynthesis. Spot compression tomosynthesis were obtained. FINDINGS: BREAST COMPOSITION: There are scattered areas of fibroglandular density (ACR BI-RADS breast composition Category b). LEFT BREAST: Approximately 0.6 cm round mass persists with spot compression in the lower inner quadrant at about 6 cm from the nipple (spot CC 22/69, spot MLO 47/79). Targeted ultrasound of the left breast was performed at the location of the mammographic finding. The survey shows a 0.5 x 0.5 x 0.5 cm simple cyst at 8 o'clock position 5 cm from the nipple. No internal vascularity demonstrated with color Doppler evaluation. Findings correlate with the mammographic finding. MM/MM tomosynthesis added views L IMPRESSION: LEFT BREAST: Simple cyst at 8 o'clock position 5 cm from the nipple. Benign, no mammographic evidence of malignancy. Normal interval follow-up is recommended in 12 months. ASSESSMENT: BI-RADS 2 - Benign Findings RECOMMENDATION: 1 year F/U Results were provided to the patient at time of visit by the technologist. This patient's information was entered into a reminder system with a target due date for their next mammogram. Electronically signed by: Donal Sethi MD 06/09/2025 03:41 PM EDT RP Workstation: [employer] Dictated By: Donal Sethi MD Signed By: <Electronically signed by Donal Sethi MD in OV> 06/09/25 1541 DD/ 1429 TD/TT: 06/09/25 1442 Health Sciences Manager: us Helga Bloom ANP IMG BI PROCEDURES Final Result * US EXTREMITY NON-VASCULAR RIGHT LIMITED (05/24/2025 4:44 PM EDT) Anatomical Region Laterality Modality Ultrasound 05/24/2025 4:44 PM EDT Narrative 05/24/2025 4:45 PM EDT [place] [address] Ultrasound Report Signed Patient: Lorin Cedillo MR#: [id number] 142 : 1980 Acct:[id number] Age/Sex: 44 / F ADM Date: 05/24/25 Loc: HO.ED Attending Dr: Ordering Physician: Filomena Samaniego NP Date of Service: 05/24/25 Procedure(s): US Extremity Nonvas Limited RT Accession Number(s): [id number] cc: Filomena Samaniego NP; HELGA BLOOM NP [...] by Amando Vivar MD in OV> 05/24/25 164 DD/ 164 TD/TT: 05/24/251643 Health Sciences Manager: Procedure Note Donotuseinterpreter, Image - 05/24/2025 [place] [address] Ultrasound Report Signed Patient: Lorin Cedillo MMR#: [id number] 142 : 1980Acct:[id number] Age/Sex: 44 / FADM Date: 05/24/25 Loc: HO.ED Attending Dr: Ordering Physician: Filomena Samaniego NP Date of Service: 05/24/25 Procedure(s): US Extremity Nonvas Limited RT Accession Number(s): [id number] cc: Filomena Samaniego NP; HELGA BLOOM NP [...] 05/24/25 1645 DD/ 1644 TD/TT: 05/24/25 1644 Health Sciences Manager: us [facility] External Provider IMG US PROCEDURES Edited Result - Final * XR Ankle 3+ Views Right (05/24/2025 12:47 PM EDT) Anatomical Region Laterality Modality Lower Extremities, Ankle Right Radiogr aphic Imaging 05/24/2025 12:4 7 PM EDT Narrative 05/24/2025 12:48 PM EDT [address] [address] XRay Report Signed Patient: Lorin Cedillo MR#: [id number] 142 : 1980 Acct:[id number] Age/Sex: 44 / F ADM Date: 05/24/25 Loc: .ED Attending Dr: Ordering Physician: Russell Em Date of Service: 05/24/25 Procedure(s): XR ankle RT min 3V Accession Number(s): [id number] cc: Russell Em; HELGA BLOOM NP CLINICAL [...] 05/24/25 1248 DD/ 1247 TD/TT: 05/24/25 1247 Health Sciences Manager: Procedure Note Donotuseinterpreter, Image - 05/24/2025 [address] [place] [address] XRay Report Signed Patient: Lorin Cedillo MMR#: [id number] 142 : 1980Acct:[id number] Age/Sex: 44 / FADM Date: 05/24/25 Loc: HO.ED Attending Dr: Ordering Physician: Russell Em Date of Service: 05/24/25 Procedure(s): XR ankle RT min 3V Accession Number(s): [id number] cc: Russell Em; HELGA BLOOM NP CLINICAL [...] 05/24/25 1248 DD/ 1247 TD/TT: 05/24/25 1247 Health Sciences Manager: [facility] External Provider IMG XR PROCEDURES Final Result * XR Knee 4+ Views Right (05/24/2025 12:46 PM EDT) Anatomical Region Laterality Modality Lower Extremities, Knee Right Radiogra phic Imaging 05/24/2025 12:4 6 PM EDT Narrative 05/24/2025 12:47 PM EDT [address] [address] XRay Report Signed Patient: Lorin Cedillo MR#: [id number] 142 : 1980 Acct:[id number] Age/Sex: 44 / F ADM Date: 05/24/25 Loc: HO.ED Attending Dr: Ordering Physician: Russell Em Date of Service: 05/24/25 Procedure(s): XR knee RT 4V Accession Number(s): [id number] cc: Russell Em; HELGA BLOOM RADIAGRAPH OPERATOR CLINICAL HISTORY: trauma 5 view right knee [...] OV> 05/24/25 1247 DD/ 1246 TD/TT: 05/24/251245 Health Sciences Manager: Procedure Note Matthias, Eb - 05/24/2025 [place] [address] XRay Report Signed Patient: Lorin Cedillo [employer]#: [id number] 142 : 1980Acct:[id number] Age/Sex: 44 / FADM Date: 05/24/25 Loc: .ED Attending Dr: Ordering Physician: Russell Em Date of Service: 05/24/25 Procedure(s): XR knee RT 4V Accession Number(s): [id number] cc: Russell Em; HELGA BLOOM NP CLINICAL [...] OV> 05/24/25 1247 DD/ 1246 TD/TT: 05/24/251245 Health Sciences Manager: [facility] External Provider IMG XR PROCEDURES Final Result * BI Mammogram Screening Tomosynthesis Bilateral (04/08/2025 2:25 PM EDT) Anatomical Region Laterality Modality Breast Bilateral Mammography 04/08/2025 2:25 PM EDT Narrative 04/21/2025 4:50 PM EDT [place] [facility] [address] [place] [address] Mammography Report Signed Patient: Lorin Cedillo MR#: [id number] 142 : 1980 Acct:[id number] Age/Sex: 44 / F ADM Date: 04/08/25 Loc: HO.MAMMO Attending Dr: Helga Bloom NP Ordering Physician: HELGA BLOOM NP Results: 0Incomplete : Needs Additional Imaging Evaluation Date of Service: 04/08/25 Follow Up: Additional Imagi ng Procedure(s): MM tomosynthesis screening BI Accession Number(s): [id number] cc: HELGA BLOOM NP EXAMINATION: MM SCREENING [...] by Samantha Yeung DO in OV> 04/21/25 1647 DD/ 1425 TD/TT: 04/08/25 1445 Health Sciences Manager: Procedure Note Donotsofiater, Image - 04/21/2025 [facility] [address] [place] [address] Mammography Report Signed Patient: Lorin Cedillo MMR#: [id number] 142 : 1980Acct:[id number] Age/Sex: 44 / FADM Date: 04/08/25 Loc: HO.MAMMO Attending Dr: Helga Bloom NP Ordering Physician: HELGA BLOOM NPResults: 0Incomplete : Needs Additional Imaging Evaluation Date of Service: 04/08/25Follow Up: Additional Imagi ng Procedure(s): MM tomosynthesis screening BI Accession Number(s): [id number] cc: HELGA BLOOM NP EXAMINATION: MM SCREENING [...] Samantha Yeung DO 04/21/2025 04:47 PM EDT RP Dictated By: Samantha Yeung DO Signed By: <Electronically signed by Samantha Yeung DO in OV> 04/21/25 1647 DD/ 1425 TD/TT: 04/08/25 1445 Health Sciences Manager: us Helga Bloom ANP IMG BI PROCEDURES Final Result * TSH W/Reflex to FT4 (03/13/2025 10:50 AM EDT) Pathologist [facility] TSH reflex Free T4 2.78 0.32 - 4.0 uIU/mL [facility] Blood Venous blood specimen / Unknown 03/13/2025 10:50 AM EDT 03/13/2025 12:56 PM EDT us Helga Bloom ANP LAB BLOOD ORDERABLES Final Resul t [facility] [address] [place] [phone] * CBC auto differential (03/13/2025 10:50 AM EDT) Pathologist [facility] White Blood Count 8.6 4.8 - 10.8 X10*3/uL [facility] Red Blood Count 4.43 4.20 - 5.50 X10*6/uL [facility] Hemoglobin 13.0 12.0 - 16.0 g/dl [facility] Hematocrit 38.7 37.0 - 47.0 % [facility] Mean Corpuscular Volume 87.4 80.0 - 98.0 fL [facility] Mean Corpuscular Hemoglobin 29.3 27.0 - 33.0 pg [facility] Mean Corpuscular HGB Conc 33.6 31.0 - 35.0 g/dl [facility] Red Cell Distribution Width 12.4 11.0 - 16.0 % [facility] Platelet Count 318 160 - 400 X10*3/uL [facility] Mean Platelet Volume 11.4 9.4 - 12.3 fL [facility] Neutrophils Percent Auto 61.4 45 - 73 % [facility] Imm Gran Pct Auto 0.3 0.0 - 0.4 % [facility] Lymphocytes Percent Auto 27.1 20 - 40 % [facility] Monocytes Percent Auto 6.8 2 - 11 % [facility] Eosinophils Percent Auto 3.8 0 - 4 % [facility] Basophils Percent Auto 0.6 0 - 2 % [facility] NRBC Pct Auto 0.0 0.0 - 0.2 /100WBC [facility] Neutrophils Absolute Auto 5.3 2.0 - 8.3 x10*3/uL [facility] Imm Gran Abs Auto 0.03 0.00 - 0.03 X10*3/uL [facility] Lymphocytes Absolute Auto 2.3 1.2 - 4.9 X10*3/uL [facility] Monocytes Absolute Auto 0.6 0.1 - 1.2 X10*3/uL [facility] Eosinophils Absolute Auto 0.3 0.0 - 0.4 X10*3/uL [facility] Basophils Absolute Auto 0.1 0.0 - 0.2 X10*3/uL [facility] NRBC Abs Auto 0.000 0.0 - 0.012 X10*3/uL [facility] Blood Venous blood specimen / Unknown 03/13/2025 10:50 AM EDT 03/13/2025 12:56 PM EDT [facility] BLOOD ORDERABLES Final Resul t [facility] [address] [place] [address] [phone] * Cyclic Citrullinated Peptide (CCP) Antibody (IgG) (03/13/2025 10:50 AM EDT) Cyclic Citrullinated Peptide <16 UNITS [facility] Comment:Reference RangeNegat guillermo: <20Weak Positive: 20-39Moderate Positive: 40-59Strong Positive: >59THIS TEST WAS PERFORMED AT:[facility] [address] [id number] BARAHONA MD Blood Venous blood specimen / Unknown 03/13/2025 10:50 AM EDT 03/13/2025 12:56 PM EDT Helga Bloom ANP LAB BLOOD ORDERABLES Final Resul t Performing Organization Address City/[facility]/ZIP Co de Phone Number [facility] [address] [place] [phone] * Sed Rate by Modified Sanjanaren (03/13/2025 10:50 AM EDT) Erythrocyte Sedimentation Rate 16 0 - 20 MM/HR [facility] Comment:Patients with polycy themia and many hemoglobin abnormalitiesmay have depressed sed rates whereas patients with anemiamay have elevated sed rates. Blood Venous blood specimen / Unknown 03/13/2025 10:50 AM EDT 03/13/2025 12:56 PM EDT Helga Bloom ANP LAB BLOOD ORDERABLES Final Resul t Performing Organization Address [facility]/ZIP Co de Phone Number [facility] [address] [place] [address] [phone] * (ABNORMAL) C-reactive Protein (03/13/2025 10:50 AM EDT) C Reactive Protein 1.12(H) < or = 0.50 mg/dL [facility] Blood Venous blood specimen / Unknown 03/13/2025 10:50 AM EDT 03/13/2025 12:56 PM EDT Helga Bloom ANP LAB BLOOD ORDERABLES Final Resul t Performing Organization Address [facility] Co de Phone Number [facility] [address] [place] [address] [phone] * Hemoglobin A1c (03/13/2025 10:50 AM EDT) Hemoglobin A1c 5.1 <6.0 % [facility] Comment:Hemoglobin A1C Refer ence Range Adults: 4.8 - 6.0 % Non diabetic: < 6.0 % Goal: < 7.0 %Additional Action Suggested: > 8.0 %Note: Hemoglobin A1c results are invalid for patients with abnormal amounts of HbF. Blood transfusions may impact the HbA1c concentration in the patient sample. Estimated Average Glucose 100 mg/dL [facility] Comment:eAG = Estimated ave rage glucose which is %A1C expressed asaverage glucose, using the formula of the J3H-XrkkzuhSykrdab Glucose study (ADAG), Diabetes Care, Vol.31,#8,May. 2007 Blood Venous blood specimen / Unknown 03/13/2025 10:50 AM EDT 03/13/2025 12:56 PM EDT [facility] LAB BLOOD ORDERABLES Final Resul t [facility] [address] [place] [address] [phone] * (ABNORMAL) Lipid Panel, Standard (03/13/2025 10:50 AM EDT) Triglycerides 146 <150 mg/dL [facility] Comment:Desirable Triglyceri de: less than 150 mg/dLBorderline High Triglyceride 150-199 mg/dLHigh Triglyceride: 200-499 mg/dLVery High Triglyceride: greater than or equal to 5OO mg/dL Cholesterol 167 <200 mg/dL [facility] Comment:Desirable Cholestero l: less than 200 mg/dLBorderline High Cholesterol: 200-239 mg/dLHigh Cholesterol: greater than 239 mg/dL LDL Cholesterol Calculated 102(H) <100 mg/dL [facility] Comment:Desirable LDL: less than 100 mg/dLNear Optimal/Above Optimal LDL: 110- 129 mg/dLBorderline High LDL: 130-159 mg/dLHigh LDL: 160-189 mg/dLVery High LDL: greater than or equal to 190 mg/dL HDL Cholesterol 36(L) >40 mg/dL [facility] Comment:Desirable HDL: great er than 40 mg/dL Note: This HDL assay may give artificially low results in patients with liver disease. Blood Venous blood specimen / Unknown 03/13/2025 10:50 AM EDT 03/13/2025 12:56 PM EDT Helga Bloom [facility] LAB BLOOD ORDERABLES Final Resul t [facility] [address] [place] [phone] * (ABNORMAL) Comprehensive Metabolic Panel (03/13/2025 10:50 AM EDT) Sodium 140 135 - 145 mmol/L [facility] Potassium 3.8 3.3 - 5.1 mmol/L [facility] Chloride 110(H) 96 - 108 mmol/L [facility] Carbon Dioxide 23 22 - 29 mmol/L [facility] Anion Gap 11(L) 12 - 20 [facility] Urea Nitrogen (BUN) 19(H) 9 - 16 mg/dL [facility] Creatinine, Serum 0.66 0.5 - 1.4 mg/dL [facility] Estimated Glomerular Filt Rate >60 [facility] Comment:Chronic Kidney Disea se: Estimated GFR < 60 mL/min/1.91r3Ailpxi Kidney Disease: Estimated GFR < 15 mL/min/1.73m2 Glucose 92 60 - 115 mg/dL [facility] Calcium 8.9 8.4 - 10.2 mg/dL [facility] Bilirubin, Total 0.5 0.0 - 1.0 mg/dL [facility] Aspartate Amino Transferase 20 5 - 31 U/L [facility] Alanine Aminotransferase 13 0 - 31 U/L [facility] Total Protein 6.7 6.5 - 8.0 g/dL [facility] Albumin Level 4.1 3.5 - 5.0 g/dL [facility] Alkaline Phosphatase 62 39 - 117 U/L [facility] Blood Venous blood specimen / Unknown 03/13/2025 10:50 AM EDT 03/13/2025 12:56 PM EDT Helga [place] ANP LAB BLOOD ORDERABLES Final Resul t [facility] [address] [place] [address] [phone] * HPV mRNA E6/E7 w/Reflex to HPV Genotypes 16, 18/45 (08/31/2022 10:32 AM EST) HPV nRNA E6/E7 Not Detected Not Detected [facility] Comment:Methodology: Transcr iption-Mediated AmplificationThis assay detects E6/E7 viral messenger RNA (mRNA) from 14high-risk HPV types (16,18,31,33,35,39,45,51,52,56,58,59,66,68).Cervical sources are required for HPV testing.If a vaginal source from a patient who has had atotal hysterectomy with removal of cervix wassubmitted, please contact the testing laboratoryfor alternative testing options.For additional information, please refer tohttp://education.[facility] [facility]/faq/SET221b9(This link if provided for information/educational purposes only.)THIS TEST WAS PERFORMED AT:[employer] [place] [address],[place] [phone] BARAHONA MD HPV mRNA E6/E7 [facility] HPV 16 RNA [facility] HPV 18/45 RNA [facility] 08/31/2022 10:3 2 AM EST 08/31/2022 12:45 PM EST [facility] External Provider LAB CYT OLOGY ORDERABLES Final Result Performing Organization Address City/[facility]/ZIP Co de Phone Number [facility] [address] [place] [address] [phone] * Pap Smear (08/31/2022 10:32 AM EST) 08/31/2022 10:3 2 AM EST 08/31/2022 12:45 PM EST Narrative [facility] - 09/18/2022 3:57 PM EST ----- ------- Name: Lorin Cedillo Age/Sex: 42/F : 1980 Unit#: [id number] Attend Dr: Evangelina Cortez CNM Re08/31/22 Status: DEP REF Location: [facility] Disch: ----- ------- SPEC : [id number] RECD: 08/31/22-1245 STATUS: ALEXANDRA ELLA NUM: [id number] RENALDO: 08/31/22-[address] [facility] [address]: Evangelina Cortez CNM ENTERED: 08/31/22-1257 SP TYPE: Pap Smr [facility] DR: ORDERED: Pap Smear Interpretation Satisfactory for evaluation. Negative for intraepithelial lesion or malignancy. HPV mRNA E6/E7: NOT DETECTED This assay detects E6/E7 viral messenger RNA (mRNA) from 14 high-risk HPV types (16, 18, 31, 33, 35, 39, 45, 51, 52, 56, 58, 59, 66, 68) HPV testing performed by [facility], [place], [place]. See reference laboratory portion of the EMR for entire report. Clinical Information LMP: 08/27/2022 Previous PAP test: 01/25/2022, Unknown Material Received ThinPrep-Cervical ----- ------- Signed (signature on file) Rose Zamudio 09/18/22 1557 ----- ------- END OF REPORT [facility] External [facility] Final Result Performing Organization Address [facility] de Phone Number [facility] [address] [place] [phone] * HEPATITIS C AB W/REFL TO HCV RNA, QN, PCR (11/01/2021 2:36 PM EST) Pathologist [facility] HEPATITIS C ANTIBODY NON-REACT GUILLERMO NON-REACT GUILLERMO [employer] [facility] INDEX 0.03 <1.00 [facility] Comment: HCV antibody was non-reactive. There is no laboratory evidence of HCV infection. In most cases, no further action is required. However, if recent HCV exposure is suspected, a test for HCV RNA (test code 03999) is suggested. For additional information please refer to http://education.[employer]/faq/MWE72o3 (This link is being provided for informational/ educational purposes only.) 11/01/2021 2:36 PM EST Helga Oly MARQUEZ HISTORICAL/NON ORDERABLE LABS Fi nal Result Performing Organization Address [facility] Co de Phone Number [facility] [address] * HIV 1/2 ANTIGEN/ANTIBODY,FOURTH GENERATION W/RFL [...] purpose. For additional information please refer to http://education.[facility]/faq/HXY487 (This link is being provided for informational/ educational purposes only.) The performance of this assay has not been clinically validated in patients less than 2 years old. 11/01/2021 2:36 PM EST [facility] LAB BLOOD ORDERABLES Final Resul t [facility] [address] from Last 3 Months or Most Recently Relevant to Health Maintenance Insurance [employer] Care Teams Mill Tender Warm Up Relationship Specialty Start Date End Date Helga Bloom ANP [address] [place] [phone] PCP - General Family Medicine 04/26/23
--- OUTSIDE RECORDS SUMMARY | 2025-06-09 17:01 | XMS_ITS | Encounter Summary ---
Author Organization [employer] Address [address] [facility] [address] [place] [address] Care Team Providers Care Electric Blasting Cap Assembler Name Role Phone Helga Bloom Primary Care Provider [phone] Encounter Details Date Type Department Care Team ([facility] st Contact Info) Description 06/09/2025 Orders Only [facility] MEDICINE [address] [place] [address] Helga Bloom ANP [address] [place] [address] Social History Tobacco Use Types Packs/Day Years [...] on file documented as of this encounter Procedures Procedure Name Priority Date/Time Associated Diagnosis Comments BI US BREAST LIMITED LEFT Routine 06/09/2025 2:56 PM EDT BI MAMMOGRAM DIAGNOSTIC TOMOSYNTHESIS ADDED VIEW LEFT Routine 06/09/2025 2:29 PM EDT documented in this encounter Results * BI US Breast Limited Left (06/09/2025 2:56 PM EDT) Anatomical Region Laterality Modality Breast Left Ultrasound 06/09/2025 2:56 PM EDT Narrative 06/09/2025 3:44 PM EDT [address] [place] [address] Ultrasound Report Signed Patient: Lorin Cedillo MR#: [id number] 142 : 1980 Acct:[id number] Age/Sex: 44 / F ADM Date: 06/09/25 Loc: HO.MAMMO Attending Dr: Helga Bloom NP Ordering Physician: HELGA BLOOM NP Date of Service: 06/09/25 Procedure(s): US breast LT limited mamm only Accession Number(s): [id number] cc: HELGA BLOOM NP Reason for Exam: [...] 06/09/25 1541 DD/ 1456 TD/TT: 06/09/25 1501 Time Study Observer: Procedure Note Donotuseinterpreter, Image - 06/09/2025 [facility] [address] [place] [address] Ultrasound Report Signed Patient: Lorin Cedillo [facility]#: [id number] 142 : 1980Acct:[id number] Age/Sex: 44 / FADM Date: 06/09/25 Loc: HO.MAMMO Attending Dr: Helga Bloom NP Ordering Physician: HELGA BLOOM NP Date of Service: 06/09/25 Procedure(s): US breast LT limited mamm only Accession Number(s): [id number] cc: HELGA BLOOM NP Reason for Exam: [...] 06/09/25 1541 DD/ 1456 TD/TT: 06/09/25 1501 Time Study Observer: us Helga Bloom ANP IMG US PROCEDURES Final Result * BI Mammogram Diagnostic Tomosynthesis added left (06/09/2025 2:29 PM EDT) Anatomical Region Laterality Modality Breast Left Mammography 06/09/2025 2:29 PM EDT Narrative 06/09/2025 3:44 PM EDT [facility] [address] [place], [place] [address] Mammography Report Signed Patient: Lorin Cedillo MR#: [id number] 142 : 1980 Acct:[id number] Age/Sex: 44 / F ADM Date: 06/09/25 Loc: HO.MAMMO Attending Dr: Helga Bloom NP Ordering Physician: HELGA BLOOM NP Results: 2Benign [facility] Date of Service: 06/09/25 Follow Up: 1 Year From Orig ina Mammogram Procedure(s): MM tomosynthesis added views L Accession Number(s): [id number] cc: HELGA BLOOM NP EXAMINATION(S): 1. MM [...] 06/09/25 1541 DD/ 1429 TD/TT: 06/09/25 1442 Time Study Observer: Procedure Note Donotuseinterpreter, Image - 06/09/2025 [facility] [address] [place] [address] Mammography Report Signed Patient: Lorin Cedillo MMR#: [id number] 142 : 1980Acct:[id number] Age/Sex: 44 / FADM Date: 06/09/25 Loc: .MAMMO Attending Dr: Helga Bloom NP Ordering Physician: HELGA BLOOM NPResults: 2Benign [facility] Date of Service: 06/09/25Follow Up: 1 Year From Orig ina Mammogram Procedure(s): MM tomosynthesis added views L Accession Number(s): [id number] cc: HELGA BLOOM NP EXAMINATION(S): 1. MM [...] 06/09/25 1541 DD/ 1429 TD/TT: 06/09/25 1442 Time Study Observer: us Helga MARQUEZ IMRosalva BI PROCEDURES Final Result documented in this encounter Visit Diagnoses Not on filedocumented in this encounter Additional Health Concerns Assessment Noted Time PHQ-9 Depression Total Score: 20 025 1:19 PM EDT documented as of this encounter Care Teams Electric Blasting Cap Assembler Relationship Specialty Start Date End Date Helga Bloom ANP [address] [place] [phone] PCP - General Family Medicine 7/27/23 documented as of this encounter
--- OUTSIDE RECORDS SUMMARY | 2025-06-09 17:01 | XMS_ITS | Encounter Summary ---
Author Organization [employer] Address [address] [facility] 7[address] [place] [address] Care Team Providers Care Machine Heel Sprayer Name Role Phone Korin Aldridge Primary Care Provider Reason for Visit * Reason Onset Date Comments Appointment Request 06/05/2025 Encounter Details Date Type Department Care Team ([facility] st Contact Info) Description 06/05/2025 Telephone [facility] MEDICINE [address] [place] [address] Korin Aldridge ANP [address] [place] [address] Appointment Request Social History Tobacco Use Types Packs/Day Years [...] encounter Miscellaneous Notes * Telephone Encounter - Denae Chaudhry - 06/05/2025 11:48 AM EDT Called Patient left vm, advised to call back and schedule 15 min f/u with pcp in For ankle pain. Ok to schedule if Patient calls back. documented in this encounter Plan of Treatment Not on file documented as of this encounter Visit Diagnoses Not on filedocumented in this encounter Additional Health Concerns Assessment Noted Time PHQ-9 Depression Total Score: 20 025 1:19 PM EDT documented as of this encounter Care Teams Machine Heel Sprayer Relationship Specialty Start Date End Date Korin Aldridge ANP [address] [place] [phone] PCP - General Family Medicine 04/26/23 documented as of this encounter
== END 2025-06-09 14:27 | disposition home or self-care (01) ==
LOC: HO.MAMMO 14:26
PROVIDERS: PCP Nurse Practitioner Primary Care; Visit Provider Nurse Practitioner Primary Care
DX: N64.89 Other specified disorders of breast (principal)
CPT/HCPCS: 76642; 77061; 77065

== ENCOUNTER → 2025-06-09 14:30 | Outpatient (BNV) | payer MEDICAID, SELFPAY | PROVIDERS: PCP Nurse Practitioner Primary Care; Visit Provider Radiology Body Imaging | DX: R92.8 Other abnormal and inconclusive findings on diagnostic imaging of breast (principal) | CPT/HCPCS: 76642; 77061; 77065 ==

== ENCOUNTER 2025-06-18 12:08 | Emergency (ER) | payer MEDICAID, SELFPAY ==
--- NOTE | ~2025-06-18 | XR_ITS ---
EXAMINATION: XR LUMBOSACRAL SPINE CLINICAL INFORMATION: pain COMPARISON: None available. TECHNIQUE: Three views of the lumbosacral spine. FINDINGS: There is no significant scoliosis. There is a normal lumbar lordosis. There is no subluxation. There is no fracture, compression deformity, or suspicious bone lesion. Mild disc degeneration present at L1 to, and L5-S1. Discs otherwise well-preserved. Normal facet alignment and appearance bilaterally. There are cholecystectomy clips present. The paravertebral soft tissues appear normal. XR/XR lumbar spine 2-3V IMPRESSION: 1. No acute finding of the lumbar spine. 2. Mild disc degeneration present at L1-2 and L5-S1. Electronically signed by: Surinder Schulte MD 06/18/2025 02:12 PM EDT
--- NOTE | ~2025-06-18 | XR_ITS ---
EXAMINATION: XR SACROILIAC JOINTS CLINICAL INFORMATION: pain COMPARISON: 03/07/2024. TECHNIQUE: 3 views of the sacroiliac joints FINDINGS: Bones and soft tissues are normal. No fracture. Alignment is anatomic. Sacroiliac joint spaces are well-maintained without gross erosions or surrounding sclerosis. XR/XR sacroiliac joint min 3V IMPRESSION: Essentially normal SI joints bilaterally. Electronically signed by: Surinder Schulte MD 06/18/2025 02:13 PM EDT
[2025-06-18 12:11] VITALS: BP 106/72; PULSE 100; RESP 18; TEMP 36.9; O2SAT 97; BMI 40.7
--- NOTE | 2025-06-18 12:14 | ED.BACK ---
HPI - Back Pain/Injury General Chief Complaint: Back Pain/Injury Stated Complaint: Back pain R side Time Seen by Provider: 06/18/25 14:32 Source: patient Mode of arrival: ambulatory Limitations: no limitations History of Present Illness ED Provider: CLINTON OHARA Narrative: 45 yo female with PMH of back pain, fibromyalgia, recent RLE injury where she has been in boot for the past few weeks and she thinks it hurt her back. She notes she has pain right over the R SI joint. She has no distal numbness, tingling, no b/b incontinence, no saddle anesthesia. She is taking motrin and tramadol without relief. She denies thinners or IVDA. She has no known injury to the area but could be compensation. She has no rash or urinary symptoms. MD elicited complaint: back pain and back injury Pertinent past history: prior back pain Onset (ago): week(s) (3) Timing: progressively worsening Severity: moderate Similar Symptoms Previously: Yes Quality: sharp and aching Location: lumbar spine (R SI joint) Radiation: none Exacerbating factors: movement Relieving factors: none Context: fall Associated symptoms: denies other symptoms Treatments prior to arrival: NSAIDS and prescription analgesics Work related injury: No Related Data Home Medications ?Medication ?Instructions ?Recorded ?Confirmed meloxicam 7.5 mg tablet 7.5 mg PO BID 05/28/25 Previous Rx's ?Medication ?Instructions ?Recorded acetaminophen 650 mg 1,300 mg (2 x 650 mg) PO Q12H PRN 03/07/24 tablet,extended release (Arthritis pain #120 tabs Pain Relief (acetaminophen) ER) back brace #1 ea 07/04/24 oxycodone 5 mg tablet 5 mg PO Q8H PRN pain #12 tabs 05/24/25 diazepam 5 mg tablet (Valium) 5 mg PO TID PRN muscle spasm #10 06/18/25 tabs lidocaine 5 % topical patch 1 patch topical DAILY #30 ea 06/18/25 prednisone 20 mg tablet 40 mg (2 x 20 mg) PO DAILY 4 days 06/18/25 #8 tabs Allergies Allergy/AdvReac Type Severity Reaction Status Date / Time ketorolac (From TORADOL) Allergy Severe HOTNESS Verified 06/18/25 12:12 Review of Systems Review of Systems: Constitutional : No Weight loss, No Fever, No Chills, ENT/Mouth : No Hearing loss, No Ear Pain, No Nasal Congestion, No Sinus Pain, No Hoarseness, No sore throat, No Rhinorrhea, No Swallowing Difficulty Cardiovascular : No Chest Pain, No SOB Respiratory : No Cough, No Dyspnea Gastrointestinal : No Nausea, No Vomiting, No Diarrhea, No abdominal Pain, No Hematochezia, No Melena Genitourinary : No Dysuria, No Urinary Frequency, No Hematuria, No Urinary Incontinence, Musculoskeletal : positive back pain Skin : No Skin Lesions, No rash Neuro : No Weakness, No Numbness, No Paresthesias, no loss of bowel or bladder incontinence, no saddle anesthesia Yes all other systems are reviewed and are negative [facility] Past Medical History Attestation statement: The following information was validated with the patient. 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 Oriented X3. No acute distress. Eyes: Pupils equal, round and reactive to light. ENT: Pharynx normal. Neck: Normal inspection. Neck supple. CVS: Normal heart rate and rhythm. Pulses normal. Respiratory: No respiratory distress. Breath sounds normal. Abdomen: Soft and nontender. Back: ttp along R SI joint palpation reproduces pain Skin: Skin warm and dry. Normal skin color. Normal skin turgor. Extremities: No lower extremity edema. Neuro: Oriented X 3. No motor deficit. No sensory deficit. Course Course Course Narrative: This is an RME: Additional HPI, ROS, PE not included below will be deferred to primary provider. RME assessment and note performed by: Rose Wolfe PA-C This is a 45-year-old female who presents emergency department complaints of right SI joint pain for the last 2 days. No trauma or injury however does report that she had a fall several weeks ago and has been going to physical therapy. No fevers or chills. No chest pain, shortness for breath, or urinary symptoms. No abdominal pain. Pain does not extend to the right flank. Plan: X-rays, further ER evaluation needed. Medical Decision Making Medical Decision Making MDM Narrative: 45 yo female with PMH of back pain, fibromyalgia, recent RLE injury now here with R SI joint pain at this time will need xrays and pain control. She has tramadol will hold off narcotics and start on pain patches, valium and prednisone. She is able to walk she has no cauda equina symptoms and is not toxic appearing. Differential Diagnosis Differential Diagnoses: The differential diagnosis associated with the presentation includes SI joint dysfunction, compensatory pain Admission/Observation Consideration of admission/observation: Escalation of care including admission/observation considered no cauda equina symptoms and no red flags symptoms stable for DC Independent Interpretation I performed an independent interpretation of an: Plain X-Ray (no fx) Radiology Impression Discussion of test interpretation with radiology: I have reviewed the radiologist's reading. External Record Review External record reviewed: Outpatient record Prescription Management I considered prescription management with: Pain Medication and Other Discharge Plan Discharge Clinical Impression: Sacroiliac joint dysfunction of both sides Strain of lumbar region Qualifiers: Encounter type: initial encounter Qualified Code(s): S39.012A - Strain of muscle, fascia and tendon of lower back, initial encounter Patient Disposition: Home, Self-Care Instructions: Back Pain (ED) Additional Instructions: return for numbness, weakness, loss of control of bowel or bladder or any other concerns xray shows some degeneration at L5-S1 Prescriptions: New diazepam [Valium] 5 mg tablet 5 mg PO TID PRN (Reason: muscle spasm) Qty: 10 0RF Rx Instructions: partial fill is okay prednisone 20 mg tablet 40 mg PO DAILY 4 Days Qty: 8 0RF lidocaine 5 % adhesive patch,medicated 1 patch topical DAILY Qty: 30 0RF Rx Instructions: leave on most painful area for up to 12 hrs No Action oxycodone 5 mg tablet 5 mg PO Q8H PRN (Reason: pain) Qty: 12 0RF Rx Instructions: Partial Fill upon patient request. acetaminophen [Arthritis Pain Relief (acetam)] 650 mg tablet extended release 1,300 mg PO Q12H PRN (Reason: pain) Qty: 120 1RF (DME) back brace Misc See Rx Instructions .Route Qty: 1 0RF Rx Instructions: As directed meloxicam 7.5 mg tablet 7.5 mg PO BID Print Language: Korean
[2025-06-18] MEDS: Lidocaine 4 % Patch ADH..PATCH 1 PATCH TRANSDERMA (14:45)
[2025-06-18 14:52] VITALS: BP 106/72; PULSE 100; RESP 18; TEMP 36.9; O2SAT 97
--- OUTSIDE RECORDS SUMMARY | 2025-06-18 16:20 | XMS_ITS | Clinical Summary ---
Author Organization [employer] Address [address] [facility] 7t [place] [address] Care Team Providers Care Liquid Center Assembler Name Role Phone Helga Bloom Primary Care Provider [phone] Allergies Active Allergy Reactions Criticality Noted Date [...] hours 100 tablet 1 06/03/20 25 Active meloxicam (Mobic) 7.5 MG tablet Take [...] noon, and at bedtime. 11/01/19 23 025 Discontinued( erapy completed) traMADol (Ultram) 50 MG tabletIndicati ons:Rupture of right Achilles tendon, subsequent encounter Take 1 tablet (50 mg) by mouth Every 6-8 hours as needed for severe pain for up to 7 days. 21 tablet 06/03/20 25 025 Active Problems Problem Noted Date Diagnosed Date [...] seek treatment PLAN: 1. Follow up with [facility]: Not recommended for follow-up 2. Patient goal [...] organization. Date Type Department Care Team Description 06/18/2025 Orders Only [facility] External Provider, [facility] 06/09/2025 Orders Only [address] [address] Helga Bloom ANP 06/05/[address] [address] Helga Bloom ANP Appointment Request 06/03/2025 3:45 PM EDT Office Visit [address] [address] Helga Bloom ANP Rupture of right Achilles tendon, subsequent encounter (Primary Dx); Rheumatoid factor positive; Polyarthralgia 06/03/2025 Travel 06/02/[address] [address] Helga Bloom ANP CHART PREP 05/24/2025 Orders Only [facility] External Provider, [facility] 04/22/2025 Telephone [facility] [address] [place] [phone] Helga Bloom ANP 04/21/2025 Results Follow-Up [address] [address] Helga Bloom ANP BI Mammogram Screening Tomosynthesis Bilateral 03/24/[address] [address] Helga Bloom ANP Referral 03/20/2025 1:00 PM EDT Office Visit [address] [address] Helga Bloom ANP Depression, unspecified depression type (Primary Dx); Posttraumatic stress disorder; Polyarthralgia; Elevated C-reactive protein (CRP); Rheumatoid factor positive; Morning stiffness of joints 03/20/2025 Travel 03/18/[address] [address] Helga Bloom ANP Chart Prep from Last 3 Months Immunizations Immunization Administration [...] Health Maintenance Due Date Last Done Comments CT Colonography 1980 Colonoscopy 1980 Colorectal Cancer Screening 1980 FIT DNA/Cologuard 1980 FIT 1980 FOBT 1980 Sigmoidoscopy 1980 Family Planning (PISQ) 1995 HPV Vaccines (1 [...] Procedure Name Priority Date/Time Associated Diagnosis Comments XR SACROILIAC JOINTS 3+ VIEWS Routine 06/18/2025 12:59 PM EDT XR LUMBAR SPINE 2-3 VIEWS Routine 06/18/2025 12:58 PM EDT BI US BREAST LIMITED LEFT Routine 06/09/2025 2:56 PM EDT BI MAMMOGRAM DIAGNOSTIC TOMOSYNTHESIS ADDED VIEW LEFT Routine 06/09/2025 2:29 PM EDT US EXTREMITY NON-VASCULAR RIGHT LIMITED Routine 05/24/2025 4:44 PM EDT XR ANKLE 3+ VIEWS RIGHT Routine 05/24/2025 12:47 PM EDT XR KNEE 4+ VIEWS RIGHT Routine 12:46 PM EDT BI MAMMOGRAM SCREENING TOMOSYNTHESIS BILATERAL Routine 04/08/2025 2:25 PM EDT LIPID PANEL, STANDARD Routine 03/13/2025 10:50 AM [...] Recently Relevant to Health Maintenance Results * XR Sacroiliac Joints 3+ Views (06/18/2025 12:59 PM EDT) Anatomical Region Laterality Modality Sacroiliac joint, Pelvis Radiogr aphic Imaging 06/18/2025 12:5 9 PM EDT Narrative 06/18/2025 2:16 PM EDT [address] [address] XRay Report Signed Patient: Lorin Cedillo MR#: [id number] 142 : 1980 Acct:[id number] Age/Sex: 45 / F ADM Date: 06/18/25 Loc: HO.ED Attending Dr: Ordering Physician: Rose Wolfe Date of Service: 06/18/25 Procedure(s): XR sacroiliac joint min 3V Accession Number(s): [id number] cc: HELGA BLOOM NP; Rose Wolfe Reason for Exam: pain EXAMINATION: XR SACROILIAC JOINTS CLINICAL INFORMATION: pain COMPARISON: 03/07/2024. TECHNIQUE: 3 views of the sacroiliac joints FINDINGS: Bones and soft tissues are normal. No fracture. Alignment is anatomic. Sacroiliac joint spaces are well-maintained without gross erosions or surrounding sclerosis. XR/XR sacroiliac joint min 3V IMPRESSION: Essentially normal SI joints bilaterally. Electronically signed by: Surinder Schulte MD 06/18/2025 02:13 PM EDT Dictated By: Surinder Schulte MD Signed By: <Electronically signed by Surinder Shculte MD in OV> 06/18/25 1413 DD/ 1259 TD/TT: 06/18/25 1307 Performance Analyst: Procedure Note Donotuseinterpreter, Image - 06/18/2025 [place] [address] XRay Report Signed Patient: Lorin Cedillo MMR#: [id number] 142 : 1980Acct:[id number] Age/Sex: 45 / FADM Date: 06/18/25 Loc: HO.ED Attending Dr: Ordering Physician: Rose Wolfe Date of Service: 06/18/25 Procedure(s): XR sacroiliac joint min 3V Accession Number(s): [id number] cc: HELGA BLOOM NP; Rose Wolfe Reason for Exam: pain EXAMINATION: XR SACROILIAC JOINTS CLINICAL INFORMATION: pain COMPARISON: 03/07/2024. TECHNIQUE: 3 views of the sacroiliac joints FINDINGS: Bones and soft tissues are normal. No fracture. Alignment is anatomic. Sacroiliac joint spaces are well-maintained without gross erosions or surrounding sclerosis. XR/XR sacroiliac joint min 3V IMPRESSION: Essentially normal SI joints bilaterally. Electronically signed by: Surinder Schulte MD 06/18/2025 02:13 PM EDT RP Dictated By: Surinder Schulte MD Signed By: <Electronically signed by Surinder Schulte MD in OV> 06/18/25 1413 DD/ 1259 TD/TT: 06/18/25 1307 Performance Analyst: [facility] External Provider IMG XR PROCEDURES Final Result * XR Lumbar Spine 2-3 Views (06/18/2025 12:58 PM EDT) Anatomical Region Laterality Modality Spine, L-spine Radiographic Lyn ging 06/18/2025 12:5 8 PM EDT Narrative 06/18/2025 2:15 PM EDT [place] [address] XRay Report Signed Patient: Lorin Cedillo MR#: [id number] 142 : 1980 Acct:[id number] Age/Sex: 45 / F ADM Date: 06/18/25 Loc: .ED Attending Dr: Ordering Physician: Rose Wolfe Date of Service: 06/18/25 Procedure(s): XR lumbar spine 2-3V Accession Number(s): [id number] cc: HELGA BLOOM SUPERVISOR TILE AND MOTTLE; Rose Wolfe Reason for Exam: pain EXAMINATION: XR LUMBOSACRAL SPINE CLINICAL INFORMATION: pain COMPARISON: None available. TECHNIQUE: Three views of the lumbosacral spine. FINDINGS: There is no significant scoliosis. There is a normal lumbar lordosis. There is no subluxation. There is no fracture, compression deformity, or suspicious bone lesion. Mild disc degeneration present at L1 to, and L5-S1. Discs otherwise well-preserved. Normal facet alignment and appearance bilaterally. There are cholecystectomy clips present. The paravertebral soft tissues appear normal. XR/XR lumbar spine 2-3V IMPRESSION: 1. No acute finding of the lumbar spine. 2. Mild disc degeneration present at L1-2 and L5-S1. Electronically signed by: Surinder Schulte MD 06/18/2025 02:12 PM EDT RP Dictated By: Surinder Schulte MD Signed By: <Electronically signed by Surinder Schulte MD in OV> 06/18/25 1412 DD/ 1258 TD/TT: 06/18/25 1307 Performance Analyst: Procedure Note Donotuseinterpreter, Image - 06/18/2025 [place] [address] XRay Report Signed Patient: Lorin Cedillo MMR#: [id number] 142 : 1980Acct:[id number] Age/Sex: 45 / FADM Date: 06/18/25 Loc: HO.ED Attending Dr: Ordering Physician: Rose Wolfe Date of Service: 06/18/25 Procedure(s): XR lumbar spine 2-3V Accession Number(s): [id number] cc: HELGA BLOOM NP; Rose Wolfe Reason for Exam: pain EXAMINATION: XR LUMBOSACRAL SPINE CLINICAL INFORMATION: pain COMPARISON: None available. TECHNIQUE: Three views of the lumbosacral spine. FINDINGS: There is no significant scoliosis. There is a normal lumbar lordosis. There is no subluxation. There is no fracture, compression deformity, or suspicious bone lesion. Mild disc degeneration present at L1 to, and L5-S1. Discs otherwise well-preserved. Normal facet alignment and appearance bilaterally. There are cholecystectomy clips present. The paravertebral soft tissues appear normal. XR/XR lumbar spine 2-3V IMPRESSION: 1. No acute finding of the lumbar spine. 2. Mild disc degeneration present at L1-2 and L5-S1. Electronically signed by: Surinder Schulte MD 06/18/2025 02:12 PM EDT RP Dictated By: Surinder Schulte MD Signed By: <Electronically signed by Surinder Schulte MD in OV> 06/18/25 1412 DD/ 1258 TD/TT: 06/18/25 1307 Performance Analyst: [facility] External Provider IMG XR PROCEDURES Final Result * BI US Breast Limited Left (06/09/2025 2:56 PM EDT) Anatomical Region Laterality Modality Breast Left Ultrasound 06/09/2025 2:56 PM EDT Narrative 06/09/2025 3:44 PM EDT [facility] [address] [place] [address] Ultrasound Report Signed Patient: Lorin Cedillo MR#: [id number] 142 : 1980 Acct:[id number] Age/Sex: 44 / F ADM Date: 06/09/25 Loc: HO.MAMMO Attending Dr: Helga Bloom NP Ordering Physician: HELGA BLOOM NP Date of Service: 06/09/25 Procedure(s): US breast LT limited mamm only Accession Number(s): [id number] cc: HELGA BLOOM NP Reason for Exam: [...] MD 06/09/2025 03:41 PM EDT RP Workstation: [employer] Dictated By: Donal Sethi MD Signed By: <Electronically signed by Donal Sethi MD in OV> 06/09/25 1541 DD/ 1456 TD/TT: 06/09/25 1501 Performance Analyst: Procedure Note Donotuseinterpreter, Image - 06/09/2025 [facility] [address] [place] [address] Ultrasound Report Signed Patient: Lorin Cedillo MMR#: [id number] 142 : 1980Acct:[id number] Age/Sex: 44 / FADM Date: 06/09/25 Loc: HO.MAMMO Attending Dr: Helga Bloom NP Ordering Physician: HELGA BLOOM NP Date of Service: 06/09/25 Procedure(s): US breast LT limited mamm only Accession Number(s): [id number] cc: HELGA BLOOM NP Reason for Exam: [...] Donal Sethi MD 06/09/2025 03:41 PM EDT Workstation: [employer] Dictated By: Donal Sethi MD Signed By: <Electronically signed by Donal Sethi MD in OV> 06/09/25 1541 DD/ 1456 TD/TT: 06/09/25 1501 Performance Analyst: us Helga [facility] IM US PROCEDURES Final Result * BI Mammogram Diagnostic Tomosynthesis added left (06/09/2025 2:29 PM EDT) Anatomical Region Laterality Modality Breast Left Mammography 06/09/2025 2:29 PM EDT Narrative 06/09/2025 3:44 PM EDT [place] [facility] [address] [place], [place] [address] Mammography Report Signed Patient: Lorin Cedillo MR#: [id number] 142 : 1980 Acct:[id number] Age/Sex: 44 / F ADM Date: 06/09/25 Loc: HO.MAMMO Attending Dr: Helga Bloom NP Ordering Physician: HELGA BLOOM NP Results: 2Benign Saad parmar Date of Service: 06/09/25 Follow Up: 1 Year From Orig ina Mammogram Procedure(s): MM tomosynthesis added views L Accession Number(s): [id number] cc: HELGA BLOOM NP EXAMINATION(S): 1. MM [...] 06/09/25 1541 DD/ 1429 TD/TT: 06/09/25 1442 Performance Analyst: Procedure Note Donotuseinterpreter, Image - 06/09/2025 [facility] [address] [place], [place] [address] Mammography Report Signed Patient: Lorin Cedillo MMR#: [id number] 142 : 1980Acct:[id number] Age/Sex: 44 / FADM Date: 06/09/25 Loc: HO.MAMMO Attending Dr: Helga Bloom SUPERVISOR TILE AND MOTTLE Ordering Physician: HELGA BLOOM NPResults: 2Benign Saad parmar Date of Service: 06/09/25Follow Up: 1 Year From Orig inal Mammogram Procedure(s): MM tomosynthesis added views L Accession Number(s): [id number] cc: HELGA BLOOM NP EXAMINATION(S): 1. MM [...] 06/09/25 1541 DD/ 1429 TD/TT: 06/09/25 1442 Performance Analyst: us Helga MARQUEZ IMG BI PROCEDURES Final Result * US EXTREMITY NON-VASCULAR RIGHT LIMITED (05/24/2025 4:44 PM EDT) Anatomical Region Laterality Modality Ultrasound 05/24/2025 4:44 PM EDT Narrative 05/24/2025 4:45 PM EDT [place] [address] Ultrasound Report Signed Patient: Lorin Cedillo MR#: [id number] 142 : 1980 Acct:[id number] Age/Sex: 44 / F ADM Date: 05/24/25 Loc: .ED Attending Dr: Ordering Physician: Filomena Samaniego NP Date of Service: 05/24/25 Procedure(s): US Extremity Nonvas Limited RT Accession Number(s): [id number] cc: Filomena Samaniego NP; HELGA BLOOM NP [...] 05/24/25 1645 DD/ 1644 TD/TT: 05/24/25 1644 Performance Analyst: Procedure Note Donotuseinterpreter, Image - 05/24/2025 [place] [address] Ultrasound Report Signed Patient: Lorin Cedillo MMR#: [id number] 142 : 1980Acct:[id number] Age/Sex: 44 / FADM Date: 05/24/25 Loc: HO.ED Attending Dr: Ordering Physician: Filomena Samaniego NP Date of Service: 05/24/25 Procedure(s): US Extremity Nonvas Limited RT Accession Number(s): [id number] cc: Filomena Samaniego NP; HELGA BLOOM NP [...] 05/24/25 1645 DD/ 1644 TD/TT: 05/24/25 1644 Performance Analyst: us [facility] External Provider IMG US PROCEDURES Edited Result - Final * XR Ankle 3+ Views Right (05/24/2025 12:47 PM EDT) Anatomical Region Laterality Modality Lower Extremities, Ankle Right Radiogr aphic Imaging 05/24/2025 12:4 7 PM EDT Narrative 05/24/2025 12:48 PM EDT [address] [address] XRay Report Signed Patient: Lorin Cedillo MR#: [id number] 142 : 1980 Acct:[id number] Age/Sex: 44 / F ADM Date: 05/24/25 Loc: HO.ED Attending Dr: Ordering Physician: Russell Em Date of Service: 05/24/25 Procedure(s): XR ankle RT min 3V Accession Number(s): [id number] cc: Russell Em; HELGA BLOOM NP CLINICAL [...] 05/24/25 1248 DD/ 1247 TD/TT: 05/24/25 1247 Performance Analyst: Procedure Note Donbrentoninterpreter, Image - 05/24/[address] [address] XRay Report Signed Patient: Lorin Cedillo MMR#: [id number] 142 : 1980Acct:[id number] Age/Sex: 44 / FADM Date: 05/24/25 Loc: HO.ED Attending Dr: Ordering Physician: Russell Em Date of Service: 05/24/25 Procedure(s): XR ankle RT min 3V Accession Number(s): [id number] cc: Russell Em; HELGA BLOOM NP CLINICAL [...] 05/24/25 1248 DD/ 1247 TD/TT: 05/24/25 1247 Performance Analyst: [facility] External Provider IMG XR PROCEDURES Final Result * XR Knee 4+ Views Right (05/24/2025 12:46 PM EDT) Anatomical Region Laterality Modality Lower Extremities, Knee Right Radiogra phic Imaging 05/24/2025 12:4 6 PM EDT Narrative 05/24/2025 12:47 PM EDT [place] [address] XRay Report Signed Patient: Lorin Cedillo MR#: [id number] 142 : 1980 Acct:[id number] Age/Sex: 44 / F ADM Date: 05/24/25 Loc: HO.ED Attending Dr: Ordering Physician: uRssell Em Date of Service: 05/24/25 Procedure(s): XR knee RT 4V Accession Number(s): [id number] cc: Russell Em; HELGA BLOOM NP CLINICAL [...] OV> 05/24/25 1247 DD/ 1246 TD/TT: 05/24/251245 Performance Analyst: Procedure Note Donotuseinterpreter, Image - 05/24/2025 [place] [address] XRay Report Signed Patient: Lorin Cedillo MMR#: [id number] 142 : 1980Acct:[id number] Age/Sex: 44 / FADM Date: 05/24/25 Loc: HO.ED Attending Dr: Ordering Physician: Russell Em Date of Service: 05/24/25 Procedure(s): XR knee RT 4V Accession Number(s): [id number] cc: Russell Em; HELGA BLOOM NP CLINICAL [...] OV> 05/24/25 1247 DD/ 1246 TD/TT: 05/24/251245 Performance Analyst: [facility] External Provider IMG XR PROCEDURES Final Result * BI Mammogram Screening Tomosynthesis Bilateral (04/08/2025 2:25 PM EDT) Anatomical Region Laterality Modality Breast Bilateral Mammography 04/08/2025 2:25 PM EDT Narrative 04/21/2025 4:50 PM EDT [place] [facility] [address] [place] [address] Mammography Report Signed Patient: Lorin Cedillo MR#: [id number] 142 : 1980 Acct:[id number] Age/Sex: 44 / F ADM Date: 04/08/25 Loc: HO.MAMMO Attending Dr: Helga Bloom NP Ordering Physician: HELGA BLOOM NP Results: 0Incomplete : Needs Additional Imaging Evaluation Date of Service: 04/08/25 Follow Up: Additional Imagi ng Procedure(s): MM tomosynthesis screening BI Accession Number(s): [id number] cc: HELGA BLOOM NP EXAMINATION: MM SCREENING [...] 04/21/25 1647 DD/ 1425 TD/TT: 04/08/25 1445 Performance Analyst: Procedure Note Donotuseinterpreter, Image - 04/21/2025 [facility] [address] [place], [place] [address] Mammography Report Signed Patient: Lorin Cedillo MMR#: [id number] 142 : 1980Acct:[id number] Age/Sex: 44 / FADM Date: 04/08/25 Loc: HO.MAMMO Attending Dr: Helga Bloom NP Ordering Physician: HELGA BLOOM NPResults: 0Incomplete : Needs Additional Imaging Evaluation Date of Service: 04/08/25Follow Up: Additional Imagi ng Procedure(s): MM tomosynthesis screening BI Accession Number(s): [id number] cc: HELGA BLOOM NP EXAMINATION: MM SCREENING [...] 04/21/25 1647 DD/ 1425 TD/TT: 04/08/25 1445 Performance Analyst: Helga Bloom ANP IMG BI PROCEDURES Final Result * (ABNORMAL) Lipid Panel, Standard (03/13/2025 10:50 AM EDT) Triglycerides 146 <150 mg/dL [facility] Comment:Desirable Triglyceri de: less than 150 mg/dLBorderline High Triglyceride 150-199 mg/dLHigh Triglyceride: 200-499 mg/dLVery High Triglyceride: greater than or equal to 5OO mg/dL Cholesterol 167 <200 mg/dL [facility] Comment:Desirable Cholestero l: less than 200 mg/dLBorderline High Cholesterol: 200-239 mg/dLHigh Cholesterol: greater than 239 mg/dL LDL Cholesterol Calculated 102(H) <100 mg/dL [facility] Comment:Desirable LDL: less than 100 mg/dLNear Optimal/Above Optimal LDL: 110- 129 mg/dLBorderline High LDL: 130-159 mg/dLHigh LDL: 160-189 mg/dLVery High LDL: greater than or equal to 190 mg/dL HDL Cholesterol 36(L) >40 mg/dL [facility] Comment:Desirable HDL: great er than 40 mg/dL Note: This HDL assay may give artificially low results in patients with liver disease. Blood Venous blood specimen / Unknown 03/13/2025 10:50 AM EDT 03/13/2025 12:56 PM EDT Helga Bloom ANP LAB BLOOD ORDERABLES Final Resul t [facility] [address] [place] [address] [phone] * HPV mRNA E6/E7 w/Reflex to HPV Genotypes 16, 18/45 (08/31/2022 10:32 AM EST) HPV nRNA E6/E7 Not Detected Not Detected [facility] Comment:Methodology: Transcr iption-Mediated AmplificationThis assay detects E6/E7 viral messenger RNA (mRNA) from 14high-risk HPV types (16,18,31,33,35,39,45,51,52,56,58,59,66,68).Cervical sources are required for HPV testing.If a vaginal source from a patient who has had atotal hysterectomy with removal of cervix wassubmitted, please contact the testing laboratoryfor alternative testing options.For additional information, please refer tohttp://education.[employer]/faq/STC978k1(This link if provided for information/educational purposes only.)THIS TEST WAS PERFORMED AT:[facility] [place] [address],[place] [id number] BARAHONA MD HPV mRNA E6/E7 [facility] HPV 16 RNA [facility] HPV 18/45 RNA [facility] 08/31/2022 10:3 2 AM EST 08/31/2022 12:45 PM EST [facility] External Provider LAB CYT OLOGY ORDERABLES Final Result Performing Organization Address City/State/[facility] Co de Phone Number [facility] [address] [place] [phone] * Pap Smear (08/31/2022 10:32 AM EST) 08/31/2022 10:3 2 AM EST 08/31/2022 12:45 PM EST Narrative [facility] - 09/18/2022 3:57 PM EST ----- ------- Name: Lorin Cedillo Age/Sex: 42/F : 1980 Unit#: [id number] Attend Dr: Evangelina Cortez [facility] Re08/31/22 Status: DEP REF Location: [facility] Disch: ----- ------- SPEC : [id number] RECD: 08/31/22 STATUS: ALEXANDRA JARAMILLO NUM: [id number] RENALDO: 08/31/[address] [facility] [address]: Evangelina Cortez [facility] ENTERED: 08/31/22-1256 SP TYPE: Pap Smr OTHR DR: ORDERED: Pap Smear Interpretation Satisfactory for evaluation. Negative for intraepithelial lesion or malignancy. HPV mRNA E6/E7: NOT DETECTED This assay detects E6/E7 viral messenger RNA (mRNA) from 14 high-risk HPV types (16, 18, 31, 33, 35, 39, 45, 51, 52, 56, 58, 59, 66, 68) HPV testing performed by [facility] [employer], [place], [place]. See reference laboratory portion of the EMR for entire report. Clinical Information LMP: 08/27/2022 Previous PAP test: 01/25/2022, Unknown Material Received ThinPrep-Cervical ----- ------- Signed (signature on file) Rose Zamudio 09/18/22 1557 ----- ------- END OF REPORT [facility] External Provider LAB CYT OLOGY ORDERABLES Final Result [facility] [address] [place] [address] [phone] * HEPATITIS C AB W/REFL TO HCV RNA, QN, PCR (11/01/2021 2:36 PM EST) HEPATITIS C ANTIBODY NON-REACT GUILLERMO NON-REACT GUILLERMO [facility] INDEX 0.03 <1.00 [facility] Comment: HCV antibody was non-reactive. There is no laboratory evidence of HCV infection. In most cases, no further action is required. However, if recent HCV exposure is suspected, a test for HCV RNA (test code 17497) is suggested. For additional information please refer to http://education.[employer]/faq/SFF10d5 (This link is being provided for informational/ educational purposes only.) 11/01/2021 2:36 PM EST Helga Bloom ANP HISTORICAL/NON ORDERABLE LABS Fi nal Result [facility] [address] * HIV 1/2 ANTIGEN/ANTIBODY,FOURTH GENERATION W/RFL (11/01/2021 2:36 PM EST) HIV-1/2 ANTIGEN AND ANTIBODIES, 4TH GENERATION W/ REFLEX NON-REACT GUILLERMO NON-REACT [facility] Comment: HIV-1 antigen and HIV-1/HIV-2 [...] purpose. For additional information please refer to http://education.[employer]/faq/IRP883 (This link is being provided for informational/ educational purposes only.) The performance of this assay has not been clinically validated in patients less than 2 years old. 11/01/2021 2:36 PM EST Helga MARQUEZ LAB BLOOD ORDERABLES Final Resul t [facility] Critical access hospital [address] from Last 3 Months or Most Recently Relevant to Health Maintenance Insurance [facility] Care Teams Liquid Center Assembler Relationship Specialty Start Date End Date Helga Bloom ANP [address] [place] [phone] PCP - General Family Medicine 04/26/23
--- OUTSIDE RECORDS SUMMARY | 2025-06-18 16:20 | XMS_ITS | Encounter Summary ---
Author Organization [employer] Address [address] [place] [address] Care Team Providers Care Machine Rough Rounder Name Role Phone Helga Bloom Primary Care Provider [phone] Encounter Details Date Type Department Care Team ([facility] st Contact Info) Description 06/18/2025 Orders Only [facility] External Provider, [facility] Social History Tobacco Use Types Packs/Day Years [...] 2-3 VIEWS Routine 06/18/2025 12:58 PM EDT documented in this encounter Results * XR Sacroiliac Joints 3+ Views (06/18/2025 12:59 PM EDT) Anatomical Region Laterality Modality Sacroiliac joint, Pelvis Radiogr aphic Imaging 06/18/2025 12:5 9 PM EDT Narrative 06/18/2025 2:16 PM EDT [place] [address] XRay Report Signed Patient: Lorin Cedillo MR#: [id number] 142 : 1980 Acct:[id number] Age/Sex: 45 / F ADM Date: 06/18/25 Loc: HO.ED Attending Dr: Ordering Physician: Rose Wolfe Date of Service: 06/18/25 Procedure(s): XR sacroiliac joint min 3V Accession Number(s): [id number] cc: HELGA BLOOM NP; Rose Wolfe Reason [...] 06/18/25 1413 DD/ 1259 TD/TT: 06/18/25 1307 Teacher Learning Disabled: Procedure Note Donotuseinterpreter, Image - 06/18/[address] [address] XRay Report Signed Patient: Lorin Cedillo MMR#: [id number] 142 : 1980Acct:[id number] Age/Sex: 45 / FADM Date: 06/18/25 Loc: .ED Attending Dr: Ordering Physician: Rose Wolfe Date of Service: 06/18/25 Procedure(s): XR sacroiliac joint min 3V Accession Number(s): [id number] cc: HELGA BLOOM HELICOPTER REPAIRER; Rose Wolfe Reason for Exam: pain EXAMINATION: [...] 06/18/25 1413 DD/ 1259 TD/TT: 06/18/25 1307 Teacher Learning Disabled: us [facility] External Provider IMG XR PROCEDURES Final Result * XR Lumbar Spine 2-3 Views (06/18/2025 12:58 PM EDT) Anatomical Region Laterality Modality Spine, L-spine Radiographic Lyn ging 06/18/2025 12:5 8 PM EDT Narrative 06/18/2025 2:15 PM EDT [address] [address] XRay Report Signed Patient: Lorin Cedillo MR#: [id number] 142 : 1980 Acct:[id number] Age/Sex: 45 / F ADM Date: 06/18/25 Loc: HO.ED Attending Dr: Ordering Physician: Rose Wolfe Date of Service: 06/18/25 Procedure(s): XR lumbar spine 2-3V Accession Number(s): [id number] cc: HELGA BLOOM HELICOPTER REPAIRER; Rose Wolfe Reason for Exam: pain EXAMINATION: [...] Surinder Schulte MD 06/18/2025 02:12 PM EDT Dictated By: Surinder Schulte MD Signed By: <Electronically signed by Surinder Schulte MD in OV> 06/18/25 1412 DD/ 1258 TD/TT: 06/18/25 1307 Teacher Learning Disabled: Procedure Note Donotuseinterpreter, Image - 06/18/[address] [address] XRay Report Signed Patient: Lorin Cedillo MMR#: [id number] 142 : 1980Acct:[id number] Age/Sex: 45 / FADM Date: 06/18/25 Loc: HO.ED Attending Dr: Ordering Physician: Rose Wolfe Date of Service: 06/18/25 Procedure(s): XR lumbar spine 2-3V Accession Number(s): [id number] cc: HELGA BLOOM HELICOPTER REPAIRER; Rose Wolfe Reason for Exam: pain EXAMINATION: [...] 06/18/25 1412 DD/ 1258 TD/TT: 06/18/25 1307 Teacher Learning Disabled: [facility] External Provider IMG XR PROCEDURES Final Result documented in this encounter Visit Diagnoses Not on filedocumented in this encounter Additional Health Concerns Assessment Noted Time PHQ-9 Depression Total Score: 20 025 1:19 PM EDT documented as of this encounter Care Teams Machine Rough Rounder Relationship Specialty Start Date End Date Helga Bloom ANP [address] [place] [address] PCP - General Family Medicine 04/26/23 documented as of this encounter
--- OUTSIDE RECORDS SUMMARY | 2025-06-18 16:20 | XMS_ITS | Encounter Summary ---
Author Organization [employer] Address [address] [place] [address] Care Team Providers Care Vice President Of Manufacturing Name Role Phone Korin Aldridge Primary Care Provider [phone] Encounter Details Date Type Department Care Team (Late st Contact Info) Description 01/07/2024 Telephone [facility] MEDICINE [address] [place] [address] Korin Aldridge ANP [address] [place] [address] Social History Tobacco Use Types Packs/Day Years [...] documented as of this encounter Care Teams Vice President Of Manufacturing Relationship Specialty Start Date End Date Korin Aldridge ANP [address] [place] [address] PCP - General Family Medicine 04/26/23 documented as of this encounter
--- OUTSIDE RECORDS SUMMARY | 2025-06-18 16:20 | XMS_ITS | Encounter Summary ---
Author Organization [employer] Address [address] [place] [address] Care Team Providers Care Palliative Care Physician Name Role Phone Korin Aldridge Primary Care Provider Encounter Details Date Type Department Care Team (Latest Contact Info) Description 04/21/2025 Results Follow-Up [facility] MEDICINE [address] [place] [address] Korin Aldridge ANP [address] [place] [address] BI Mammogram Screening Tomosynthesis Bilateral Social History [...] know if she does not hear from [facility] [place]. * Result Encounter Note - ALMA Jiménez - 04/21/2025 5:14 PM EDT Please follow, BIRADS0 documented in this encounter Plan of Treatment Not on file documented as of this encounter Visit Diagnoses Not on filedocumented in this encounter Additional Health Concerns Assessment Noted Time PHQ-9 Depression Total Score: 20 025 1:19 PM EDT documented as of this encounter Care Teams Palliative Care Physician Relationship Specialty Start Date End Date Korin Aldridge ANP [address] [place] [address] PCP - General Family Medicine 04/26/23 documented as of this encounter
--- OUTSIDE RECORDS SUMMARY | 2025-06-18 16:20 | XMS_ITS | Encounter Summary ---
Author Organization [employer] Address [address] [facility] [address] 7[address] [place] [address] Care Team Providers Care Livestock Rancher Name Role Phone Korin Aldridge Primary Care Provider [phone] Encounter Details Date Type Department Care Team ([facility] st Contact Info) Description 12/19/2023 Telephone [facility] MEDICINE [address] [place] [address] Korin Aldridge ANP [address] [place] [address] Social History Tobacco Use Types Packs/Day Years [...] documented as of this encounter Care Teams Livestock Rancher Relationship Specialty Start Date End Date Korin Aldridge ANP [address] [place] [address] PCP - General Family Medicine 04/26/23 documented as of this encounter
--- OUTSIDE RECORDS SUMMARY | 2025-06-18 16:20 | XMS_ITS | Encounter Summary ---
Author Organization [employer] Address [address] [facility] [address] [place] [address] Care Team Providers Care Commercial Title Examiner Name Role Phone Korin Aldridge Primary Care Provider [phone] Reason for Visit * Reason Onset Date Comments Referral 03/24/2025 Encounter Details Date Type Department Care Team ([facility] st Contact Info) Description 03/24/2025 Telephone [facility] MEDICINE [address] [place] [address] Korin Aldridge ANP [address] [place] [address] Referral Social History Tobacco Use Types Packs/Day [...] documented as of this encounter Care Teams Commercial Title Examiner Relationship Specialty Start Date End Date Korin Aldridge ANP [address] [place] [address] PCP - General Family Medicine 04/26/23 documented as of this encounter
== END 2025-06-18 14:53 | disposition home or self-care (01) ==
PROVIDERS: Emergency Provider Emergency Medicine; PCP Nurse Practitioner Primary Care
DX: S39.012A Strain of muscle, fascia and tendon of lower back, initial encounter (principal); M54.9 Dorsalgia, unspecified; X58.XXXA Exposure to other specified factors, initial encounter; Y93.9 Activity, unspecified; Y92.9 Unspecified place or not applicable; Y99.9 Unspecified external cause status
CPT/HCPCS: 72100; 72202; 99283; 99284

== ENCOUNTER → 2025-06-18 12:15 | Outpatient (BNV) | payer MEDICAID, SELFPAY | PROVIDERS: Emergency Provider Emergency Medicine; PCP Nurse Practitioner Primary Care; Visit Provider Radiology Diagnostic Radiology | DX: M51.360 Other intervertebral disc degeneration, lumbar region with discogenic back pain only (principal); M53.3 Sacrococcygeal disorders, not elsewhere classified | CPT/HCPCS: 72100; 72202 ==

== ENCOUNTER 2025-06-18 17:51 | Emergency (ER) | payer MEDICAID, SELFPAY ==
[2025-06-18 18:21] VITALS: BP 132/79; PULSE 93; RESP 20; TEMP 36.3; O2SAT 98; BMI 40.6
--- NOTE | 2025-06-18 18:24 | ED_ITS ---
HPI - Back Pain/Injury General Chief Complaint: Back Pain/Injury Stated Complaint: back pain/seen her today Related Data Home Medications ?Medication ?Instructions ?Recorded ?Confirmed meloxicam 7.5 mg tablet 7.5 mg PO BID 05/28/25 Previous Rx's ?Medication ?Instructions ?Recorded acetaminophen 650 mg 1,300 mg (2 x 650 mg) PO Q12 H PRN 03/07/24 tablet,extended release (Arthritis pain #120 tabs Pain Relief (acetaminophen) ER) back brace #1 ea 07/04/24 oxycodone 5 mg tablet 5 mg PO Q8H PRN pain #12 tab s 05/24/25 diazepam 5 mg tablet (Valium) 5 mg PO TID PRN muscle s pasm #10 06/18/25 tabs lidocaine 5 % topical patch 1 patch topical DAILY #30 ea 06/18/25 prednisone 20 mg tablet 40 mg (2 x 20 mg) PO DAILY 4 days 06/18/25 #8 tabs Allergies Allergy/AdvReac Type Severity Reaction Status Date / Time ketorolac (From TORADOL) Allergy Severe HOTNESS Verified 06/18/25 18:22 [facility] Past Medical History Medical History PTSD (post-traumatic stress disorder) Hx of abnormal cervical Pap smear Hx of bipolar disorder Surgical History S/P NATURAL RESOURCE MANAGER shunt H/O LEEP History of cone biopsy of cervix Hx of tubal ligation Family History Family History Maternal Aunt History of breast cancer Social History Social History Alcohol intake: former Patient Tobacco Use Status: Never used Tobacco Advance Directives: No Advance Directives Information Provided: No 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 RME assessment and note performed by: Rose Wolfe PA-C This is a 45-year-old female, with a history of back pain, fibromyalgia, recent right lower extremity injury where she has been in a boot for the last several weeks, here with right sided low back pain, was seen here earlier, pain has not improved. Plan: Needs to be medicated. Patient left without completing treatment. Discharge Plan Discharge Clinical Impression: Back pain Patient Disposition: Left W/O Completing Treatment Prescriptions: No Action diazepam [Valium] 5 mg tablet 5 mg PO TID PRN (Reason: muscle spasm) Qty: 10 0RF Rx Instructions: partial fill is okay prednisone 20 mg tablet 40 mg PO DAILY 4 Days Qty: 8 0RF lidocaine 5 % adhesive patch,medicated 1 patch topical DAILY Qty: 30 0RF Rx Instructions: leave on most painful area for up to 12 hrs oxycodone 5 mg tablet 5 mg PO Q8H PRN (Reason: pain) Qty: 12 0RF Rx Instructions: Partial Fill upon patient request. acetaminophen [Arthritis Pain Relief (acetam)] 650 mg tablet extended release 1,300 mg PO Q12H PRN (Reason: pain) Qty: 120 1RF (DME) back brace Misc See Rx Instructions .Route Qty: 1 0RF Rx Instructions: As directed meloxicam 7.5 mg tablet 7.5 mg PO BID Discharge Date/Time: 06/18/25 21:58
== END 2025-06-18 21:58 | disposition left against medical advice (07) ==
PROVIDERS: Emergency Provider Emergency Medicine; PCP Nurse Practitioner Primary Care
DX: M54.50 Low back pain, unspecified (principal)
CPT/HCPCS: 99281

== ENCOUNTER 2025-09-01 08:47 | Outpatient (AMB) | payer MEDICAID, SELFPAY ==
--- NOTE | 2025-09-01 08:48 | A.OFFVIS_ITS ---
Vital Signs 09/01/25 08:49 Height 5 ft 1 in Weight 223 lb 8 oz BMI 42.2 BP 136/68 Blood Pressure Location Lt brachial Position Standing Pulse 98 Pulse Source Pulse Oximeter Pulse Oximetry (%) 98 Oxygen Delivery Method Room Air Intake Visit Reasons: Polyarthralgia/New Patient Intake Note: Patient is a new patient, externally referred by Korin Aldridge NP for polyarthralgia. The pain has been more than a year, she has been taking Tylenol Arthritis for her pain, only helps a little, hurts to rise from her bed. Human Resources Benefits Manager Required: No Accompanied by: Self / Same As Patient Allergies ketorolac (From TORADOL) Allergy (Severe, Verified 09/01/25 08:55) HOTNESS HPI Comments Details: 45 year old female with presenting as a new patient for evaluation of joint pain. It is generalized pains, mainly in hands, shoulders, neck, feet, lower back, hips.She states pain started 2 years ago porogressively getting worse. She feels stiff in the morning 30 mis in the hands hips ad back. She uses Tylenol arthritis as needed. She also has numbness and tingling in both hands wth swelling. she does not use brace, no numbness and tingling in the feet. She reports no active synovitis She has shooting pain down both legs. She reports very poor sleep, she states that she was referred to sleep specialist, and she was tested for sleep apnea and was told she does not have it Review of Systems Constitutional: Denies fever, chills, weight loss ENT: Denies vision changes, eye pain or eye redness,no oral ulcers, dry mouth GI: Denies nausea, vomiting, diarrhea, abdominal pain, change in BM Pulm: Denies SOB, HENDERSON, hemoptysis, wheezing Cards: Denies chest pain, palpitations, no blood clot, no miscarriage Skin: Denies Raynaud's, rash, nail changes, photosensitivity, METAL CASKET ASSEMBLER: Denies headaches, weakness, paresthesias, recurrent falls MSK: as per HPI, she has been reporting dysphagia PHYSICAL EXAM General: Comfortable CVS: RRR Respiratory: clear to auscultation bilaterally. Good respiratory effort Skin: No lesions seen MSK: Patient is able to make a fist bilaterally, she has full range of motion in the upper extremities 5 /5 however she has diffuse tenderness in all PIPs MCPs wrists elbows shoulders. Limited range of motion of the hips, mostly due to pain strength 4 /5 in the lower extremities. 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 H/O LEEP History of cone biopsy of cervix Hx of tubal ligation Family History Maternal Aunt History of breast cancer Social History Alcohol intake: former Patient Tobacco Use Status: Never used Tobacco 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 Sexual orientation: Straight/Heterosexual Gender identity: Female Female Reproductive History Menstrual Age of Menarche: 11 Physical Exam Vital Signs: Last Vital Signs Pulse 98 09/01/25 08:49 BP 136/68 09/01/25 08:49 Pulse Ox 98 09/01/25 08:49 Oxygen Delivery Method Room Air 09/01/25 08:49 BMI result Body Mass Index 42.2 Assessment & Plan Assessment & Plan (1) Sacroiliac joint pain: Code(s): M53.3 - Sacrococcygeal disorders, not elsewhere classified Category: Medical (2) Fibromyalgia: Code(s): M79.7 - Fibromyalgia Category: Medical (3) Rheumatoid factor positive: Code(s): R76.8 - Other specified abnormal immunological findings in serum Category: Medical (4) Polyarthralgia: Code(s): M25.50 - Pain in unspecified joint Category: Medical Plan 45 year old female with presenting as a new patient for evaluation of joint pain. Based on her history, blood work and physical exam her generalized joint pain is more likely noninflammatory in nature like fibromyalgia Discussed management of fibromyalgia with patient. Is a noninflammatory, non- autoimmune central afferent processing disorder leading to a diffuse pain syndrome. I suggested that patient try to address her underlying psychiatric issues, anxiety/depression. I suggested evaluation by a therapist and/or a psychiatrist. Try to follow sleep hygiene practices. Patient would benefit from increased physical activity, either through formal physical therapy or by joining a gym. Advised patient that she should start activity slowly and increase as tolerated. Consider low-impact exercises such as walking, swimming, aqua therapy stretching, yoga. I have also requested records from [facility] for her hand x-rays to see if there is any evidence of inflammatory arthritis pointing towards rheumatoid arthritis, however as of now there is no features of rheumatoid arthritis on my exam. I will follow up with her in 6 months Orders: Orders PT Evaluation and Treatment Today M25.50 - Pain in unspecified joint OT Evaluation and Treatment Today R76.8 - Other specified abnormal immunological findings in serum Coding Level of Care Code New Pt Level 4 (48988) Diagnoses Sacroiliac joint pain M53.3 Fibromyalgia M79.7 Rheumatoid factor positive R76.8 Polyarthralgia M25.50 Time Spent (min) 60
[2025-09-01 08:49] VITALS: BP 136/68; PULSE 98; O2SAT 98; BMI 42.2
--- OUTSIDE RECORDS SUMMARY | 2025-09-01 08:55 | XMS_ITS | Encounter Summary ---
Author Organization [employer] Address [address] [facility] [address] [place] [address] Care Team Providers Care Engineering Test Mechanic Name Role Phone Korin Aldridge Primary Care Provider [phone] Reason for Visit * Reason Onset Date Comments Referral 03/24/2025 Encounter Details Date Type Department Care Team ([facility] st Contact Info) Description 03/24/2025 Telephone [facility] MEDICINE [address] [place] [address] Korin Aldridge ANP [address] [place] [address] Referral Social History Tobacco Use Types Packs/Day [...] documented as of this encounter Care Teams Engineering Test Mechanic Relationship Specialty Start Date End Date Korin Aldridge ANP [address] [place] [id number] PCP - General Family Medicine 04/26/23 documented as of this encounter
--- OUTSIDE RECORDS SUMMARY | 2025-09-01 08:56 | XMS_ITS | Clinical Summary ---
Author Organization [email or web address] Address [address] [facility] 7t [place] [address] Care Team Providers Care Photonics Engineering Technologist Name Role Phone Helga Bloom Primary Care Provider [phone] Allergies Active Allergy Reactions Criticality Noted Date Comments Ketorolac Tromethamine Other Medium 03/20/2024 Hot flashes, flushing; tolerates other NSAIDs Medications * This document contains information received from the source organization and may not represent a complete record from that organization. acetaminophen (Tylenol) 500 MG tabletIndications :Rupture of right Achilles tendon, subsequent encounter 1 or 2 tablets every 8 hours, do not take more than 6 tablets in 24 hours 100 tablet 1 06/03/20 25 Active meloxicam (Mobic) 7.5 MG tabletIndications :Lumbar back pain with radiculopathy affecting right lower extremity Take 1 tab once or twice daily as needed for pain; alternatively can take 2 tabs ONCE daily instead. 60 tablet 2 07/07/20 25 Active Active Problems Problem Noted Date Diagnosed Date [...] information should questions or concerns arise. Plan: Lroin will continue to engage in effective coping [...] dark room. Hx of MH services with [facility]. Has a sick dog that she might need to put him to sleep. Patient will benefit from Ind. Therapy. At this time Lorin Cedillo meets criteria for Visit Diagnoses: Problem List Items Addressed This Visit Other Depression, unspecified Patient ready to address current needs Yes Strengths include Lorin is willing to seek treatment PLAN: 1. Follow up with [facility]: Not recommended for follow-up 2. Patient goal is to engage in MH services 3. Behavioral Recommendations a. Ind. Therapy b. Use of coping skills c. [facility] contact number for support as needed. Backache 02/19/2012 Disorder of function of stomach 02/19/2012 Pain in joint involving lower leg 02/19/2012 Abdominal pain 02/19/2012 Posttraumatic stress disorder 02/19/2012 Encounters * This document contains information received from the source organization and may not represent a complete record from that organization. Date Type Department Care Team Description 07/08/[address] [address] Helga Bloom ANP Med Refill 07/07/2025 Orders Only [address] [address] Helga Bloom ANP Rheumatoid factor positive (Primary Dx); Lumbar back pain with radiculopathy affecting right lower extremity 07/03/[address] [address] Helga Bloom ANP Medication Question 06/25/[address] [address] Keely Figueroa, [employer] LEADER Follow-up 06/18/2025 Orders Only [facility] External Provider, [facility] 06/09/2025 Orders Only [address] [address] Helga Bloom ANP 06/05/[address] [address] Helga Bloom ANP Appointment Request 06/03/2025 3:45 PM EDT Office Visit [address] [address] Helga Bloom ANP Rupture of right Achilles tendon, subsequent encounter (Primary Dx); Rheumatoid factor positive; Polyarthralgia 06/03/2025 Travel 06/02/[address] [address] Helga Bloom ANP CHART PREP from Last 3 Months Immunizations Immunization Administration [...] - 19+ 3-dose series) 1999 COVID-19 Vaccine (2024-2 6 season) 2025 Influenza Vaccine (#1) 2025 2012 [...] VIEW LEFT Routine 06/09/2025 2:29 PM EDT LIPID PANEL, STANDARD Routine 03/13/2025 [...] PM EDT Narrative 06/18/2025 2:16 PM EDT [address] [address] XRay Report Signed Patient: Lorin Cedillo MR#: [id number] 142 : 1980 Acct:[id number] Age/Sex: 45 / F ADM Date: 06/18/25 Loc: HO.ED Attending Dr: Ordering Physician: Rose Wolfe Date of Service: 06/18/25 Procedure(s): XR sacroiliac joint min 3V Accession Number(s): [id number] cc: HELGA BLOOM NP; Rose Wolfe Reason [...] 06/18/25 1413 DD/ 1259 TD/TT: 06/18/25 1307 Core Shaper Sides: Procedure Note Donotuseinterpreter, Image - 06/18/[address] [address] XRay Report Signed Patient: Lorin Cedillo MMR#: [id number] 142 : 1980Acct:[id number] Age/Sex: 45 / FADM Date: 06/18/25 Loc: HO.ED Attending Dr: Ordering Physician: Rose Wolfe Date of Service: 06/18/25 Procedure(s): XR sacroiliac joint min 3V Accession Number(s): [id number] cc: HELGA BLOOM NP; Rose Wolfe Reason [...] 06/18/25 1413 DD/ 1259 TD/TT: 06/18/25 1307 Core Shaper Sides: [facility] External Provider IMG XR PROCEDURES Final Result * XR Lumbar Spine 2-3 Views (06/18/2025 12:58 PM EDT) Anatomical Region Laterality Modality Spine, L-spine Radiographic Lyn ging 06/18/2025 12:5 8 PM EDT Narrative 06/18/2025 2:15 PM EDT [place] [address] XRay Report Signed Patient: Lorin Cedillo MR#: [id number] 142 : 1980 Acct:[id number] Age/Sex: 45 / F ADM Date: 06/18/25 Loc: HO.ED Attending Dr: Ordering Physician: Rose Wolfe Date of Service: 06/18/25 Procedure(s): XR lumbar spine 2-3V Accession Number(s): [id number] cc: HELGA BLOOM NP; Rose Wolfe Reason [...] 06/18/25 1412 DD/ 1258 TD/TT: 06/18/25 1307 Core Shaper Sides: Procedure Note Donotuseinterpreter, Image - 06/18/2025 [place] [address] XRay Report Signed Patient: Lorin Cedillo MMR#: [id number] 142 : 1980Acct:[id number] Age/Sex: 45 / FADM Date: 06/18/25 Loc: HO.ED Attending Dr: Ordering Physician: Rose Wolfe Date of Service: 06/18/25 Procedure(s): XR lumbar spine 2-3V Accession Number(s): [id number] cc: HELGA BLOOM DIRECTOR OF GLOBAL MARKETING; Rose Wolfe Reason for Exam: pain EXAMINATION: [...] 06/18/25 1412 DD/ 1258 TD/TT: 06/18/25 1307 Core Shaper Sides: [facility] External Provider IMG XR PROCEDURES Final Result * BI US Breast Limited Left (06/09/2025 2:56 PM EDT) Anatomical Region Laterality Modality Breast Left Ultrasound 06/09/2025 2:56 PM EDT Narrative 06/09/2025 3:44 PM EDT [address] [place] [address] Ultrasound Report Signed Patient: Lorin Cedillo MR#: [id number] 142 : 1980 Acct:[id number] Age/Sex: 44 / F ADM Date: 06/09/25 Loc: HO.MAMMO Attending Dr: Helga Bloom NP Ordering Physician: HELGA BLOOM NP Date of Service: 06/09/25 Procedure(s): US breast LT limited mamm only Accession Number(s): [id number] cc: HELGA BLOOM NP Reason for Exam: [...] 06/09/25 1541 DD/ 1456 TD/TT: 06/09/25 1501 Core Shaper Sides: Procedure Note Donotuseinterpreter, Image - 06/09/2025 [facility] [address] [place] [address] Ultrasound Report Signed Patient: Lorin Cedillo [facility]#: [id number] 142 : 1980Acct:[id number] Age/Sex: 44 / FADM Date: 06/09/25 Loc: [facility].MAMMO Attending Dr: Helga Bloom NP Ordering Physician: HELGA BLOOM NP Date of Service: 06/09/25 Procedure(s): US breast LT limited mamm only Accession Number(s): [id number] cc: HELGA BLOOM NP Reason for Exam: [...] 06/09/25 1541 DD/ 1456 TD/TT: 06/09/25 1501 Core Shaper Sides: us Helga Oly GOMEZ US PROCEDURES Final Result * BI Mammogram Diagnostic Tomosynthesis added left (06/09/2025 2:29 PM EDT) Anatomical Region Laterality Modality Breast Left Mammography 06/09/2025 2:29 PM EDT Narrative 06/09/2025 3:44 PM EDT [facility] [address] [place] [address] Mammography Report Signed Patient: Lorin Cedillo MR#: [id number] 142 : 1980 Acct:[id number] Age/Sex: 44 / F ADM Date: 06/09/25 Loc: HO.MAMMO Attending Dr: Helga Bloom NP Ordering Physician: HELGA BLOOM NP Results: 2Benign Fin dinggwendolyn Date of Service: 06/09/25 Follow Up: 1 Year From Orig ina Mammogram Procedure(s): MM tomosynthesis added views L Accession Number(s): [id number] cc: HELGA BLOOM NP EXAMINATION(S): 1. MM [...] 06/09/25 1541 DD/ 1429 TD/TT: 06/09/25 1442 Core Shaper Sides: Procedure Note Donotuseinterpreter, Image - 06/09/2025 [facility] [address] [place] [address] Mammography Report Signed Patient: Lorin Cedillo MMR#: [id number] 142 : 1980Acct:[id number] Age/Sex: 44 / FADM Date: 06/09/25 Loc: HO.MAMMO Attending Dr: Helga Bloom NP Ordering Physician: HLEGA BLOOMesults: 2Bmabel parmar Date of Service: 06/09/25Follow Up: 1 Year From Orig inal Mammogram Procedure(s): MM tomosynthesis added views L Accession Number(s): [id number] cc: HELGA BLOOM NP EXAMINATION(S): 1. MM [...] MD 06/09/2025 03:41 PM EDT RP Workstation: [employer] Dictated By: Donal Sethi MD Signed By: <Electronically signed by Donal Sethi MD in OV> 06/09/25 1541 DD/ 1429 TD/TT: 06/09/25 1442 Core Shaper Sides: Hegla [facility] IM BI PROCEDURES Final Result * (ABNORMAL) Lipid Panel, Standard (03/13/2025 10:50 AM EDT) Triglycerides 146 <150 mg/dL [facility] Comment:Desirable Triglyceri de: less than 150 mg/dLBorderline High Triglyceride 150-199 mg/dLHigh Triglyceride: 200-499 mg/dLVery High Triglyceride: greater than or equal to 5OO mg/dL Cholesterol 167 <200 mg/dL [facility] Comment:Desirable Cholestero l: less than 200 mg/dLBorderline High Cholesterol: 200-239 mg/dLHigh Cholesterol: greater than 239 mg/dL LDL Cholesterol Calculated 102(H) <100 mg/dL [facility] Comment:Desirable LDL: less than 100 mg/dLNear Optimal/Above Optimal LDL: 110- 129 mg/dLBorderline High LDL: 130-159 mg/dLHigh LDL: 160-189 mg/dLVery High LDL: greater than or equal to 190 mg/dL HDL Cholesterol 36(L) >40 mg/dL [facility] Comment:Desirable HDL: great er than 40 mg/dL Note: This HDL assay may give artificially low results in patients with liver disease. Blood Venous blood specimen / Unknown 03/13/2025 10:50 AM EDT 03/13/2025 12:56 PM EDT [facility] LAB BLOOD ORDERABLES Final Resul t Performing Organization Address [facility]/ZIP Co de Phone Number [facility] [address] [place] [address] [phone] * HPV mRNA E6/E7 w/Reflex to HPV Genotypes 16, 18/45 (08/31/2022 10:32 AM EST) HPV nRNA E6/E7 Not Detected Not Detected [facility] Comment:Methodology: Transcr iption-Mediated AmplificationThis assay detects E6/E7 viral messenger RNA (mRNA) from 14high-risk HPV types (16,18,31,33,35,39,45,51,52,56,58,59,66,68).Cervical sources are required for HPV testing.If a vaginal source from a patient who has had atotal hysterectomy with removal of cervix wassubmitted, please contact the testing laboratoryfor alternative testing options.For additional information, please refer tohttp://education.instruMagic/faq/IWY190k2(This link if provided for information/educational purposes only.)THIS TEST WAS PERFORMED AT:[address] [place] [address],[place] [address]BNCPEJUAN BARAHONA MD HPV mRNA E6/E7 [facility] HPV 16 RNA [facility] HPV 18/45 RNA [facility] 08/31/2022 10:3 2 AM EST 08/31/2022 12:45 PM EST [facility] External Provider LAB CYT OLOGY ORDERABLES Final Result Performing Organization Address [facility]/ZIP Co de Phone Number [facility] [address] [place] [phone] * Pap Smear (08/31/2022 10:32 AM EST) 08/31/2022 10:3 2 AM EST 08/31/2022 12:45 PM EST Narrative [facility] - 09/18/2022 3:57 PM EST ----- ------- Name: Lorin Cedillo Age/Sex: 42/F : 1980 Unit#: [id number] Attend Dr: Evangelina Cortez CNM Re08/31/22 Status: DEP REF Location: HO.LNP Disch: ----- ------- SPEC : [id number] RECD: 08/31/225 STATUS: ALEXANDRA JARAMILLO NUM: [id number] RENALDO: 08/31/22-1031 [facility] DR: Evangelina Cortez CNM ENTERED: 08/31/22-1256 SP TYPE: Pap Smr OT : ORDERED: Pap Smear Interpretation Satisfactory for evaluation. Negative for intraepithelial lesion or malignancy. HPV mRNA E6/E7: NOT DETECTED This assay detects E6/E7 viral messenger RNA (mRNA) from 14 high-risk HPV types (16, 18, 31, 33, 35, 39, 45, 51, 52, 56, 58, 59, 66, 68) HPV testing performed by [employer], [place], [place]. See reference laboratory portion of the EMR for entire report. Clinical Information LMP: 08/27/2022 Previous PAP test: 01/25/2022, Unknown Material Received ThinPrep-Cervical ----- ------- Signed (signature on file) Rose Zamudio 09/18/22 1557 ----- ------- END OF REPORT [facility] External Provider LAB CYT [facility] ORDERABLES Final Result [facility] [address] [place] [phone] * HEPATITIS C AB W/REFL TO HCV RNA, QN, PCR (11/01/2021 2:36 PM EST) HEPATITIS C ANTIBODY NON-REACT GUILLERMO NON-REACT GUILLERMO [facility] INDEX 0.03 <1.00 [facility] Comment: HCV antibody was non-reactive. There is no laboratory evidence of HCV infection. In most cases, no further action is required. However, if recent HCV exposure is suspected, a test for HCV RNA (test code 67496) is suggested. For additional information please refer to http://education.instruMagic/faq/TFB50m3 (This link is being provided for informational/ educational purposes only.) 11/01/2021 2:36 PM EST us Helga Bloom ANP HISTORICAL/NON ORDERABLE LABS Fi nal Result Performing Organization Address [facility] de Phone Number [facility] [address] * HIV 1/2 ANTIGEN/ANTIBODY,FOURTH GENERATION W/RFL (11/01/2021 2:36 PM EST) HIV-1/2 ANTIGEN AND ANTIBODIES, 4TH GENERATION W/ REFLEX NON-REACT GUILLERMO NON-REACT GUILLERMO [facility] Comment: HIV-1 antigen and HIV-1/HIV-2 [...] purpose. For additional information please refer to http://education.Affinergy.In Ovo/faq/KQF623 (This link is being provided for informational/ educational purposes only.) The performance of this assay has not been clinically validated in patients less than 2 years old. 11/01/2021 2:36 PM EST us Helga Bloom ANP LAB BLOOD ORDERABLES Final Resul t Performing Organization Address [facility] Phone Number [facility] [address] from Last 3 Months or Most Recently Relevant to Health Maintenance Insurance [facility] STANDARD Care Teams Photonics Engineering Technologist Relationship Specialty Start Date End Date Helga Bloom ANP [address] [place] [phone] PCP - General Family Medicine 04/26/23
--- OUTSIDE RECORDS SUMMARY | 2025-09-01 08:56 | XMS_ITS | Encounter Summary ---
Author Organization [employer] Address [address] [facility] 7t [place] [address] Care Team Providers Care Employee Training Specialist Name Role Phone Korin Aldridge Primary Care Provider [phone] Encounter Details Date Type Department Care Team (Late st Contact Info) Description 01/07/2024 Telephone [facility] MEDICINE [address] [place] [address] Korin Aldridge ANP [address] [place] [address] Social History Tobacco Use Types Packs/Day Years [...] documented as of this encounter Care Teams Employee Training Specialist Relationship Specialty Start Date End Date Korin Aldridge ANP [address] [place] [address] PCP - General Family Medicine 04/26/23 documented as of this encounter
--- OUTSIDE RECORDS SUMMARY | 2025-09-01 08:56 | XMS_ITS | Encounter Summary ---
Author Organization [employer] Address [address] [facility] [address]t [place] [address] Care Team Providers Care Combat Systems Officer Name Role Phone Korin Aldridge Primary Care Provider [phone] Encounter Details Date Type Department Care Team ([facility] st Contact Info) Description 12/19/[address] [facility] MEDICINE [address] [place] [address] Korin Aldridge ANP [address] [place] [address] Social History Tobacco Use Types Packs/Day Years [...] documented as of this encounter Care Teams Combat Systems Officer Relationship Specialty Start Date End Date Korin Aldridge ANP [address] [place] [address] PCP - General Family Medicine 04/26/23 documented as of this encounter
== END 2025-09-01 09:48 | disposition home or self-care (01) ==
LOC: HO.RHES 08:47
PROVIDERS: PCP Nurse Practitioner Primary Care; Visit Provider Student in an Organized Health Care Education/Training Program
DX: M53.3 Sacrococcygeal disorders, not elsewhere classified (principal); M79.7 Fibromyalgia; R76.89 Other specified abnormal immunological findings in serum; M25.50 Pain in unspecified joint
CPT/HCPCS: 99204

== ENCOUNTER → 2025-09-01 08:47 | Outpatient (BNVA) | payer MEDICAID, SELFPAY | PROVIDERS: PCP Nurse Practitioner Primary Care; Visit Provider Student in an Organized Health Care Education/Training Program | DX: M53.3 Sacrococcygeal disorders, not elsewhere classified (principal); R76.89 Other specified abnormal immunological findings in serum; M79.7 Fibromyalgia; M79.641 Pain in right hand; M79.642 Pain in left hand; M25.511 Pain in right shoulder; M25.512 Pain in left shoulder; M54.50 Low back pain, unspecified; M54.2 Cervicalgia; M25.551 Pain in right hip; M25.552 Pain in left hip | CPT/HCPCS: 99202 ==